=== PATIENT | female | born 1935 | race Caucasian/White ===

== ENCOUNTER → 2016-12-17 | Outpatient (CLI) | payer OTHER, MEDICAID ==
[~2016-12-17] MED LIST: ACETAMINOPHEN 325 MG TAB PO ONE
[2016-12-17 11:18] LABS: % IMMATURE GRANULOCYTES 0.3 % (0.0-1.1); ABSOLUTE IMMATURE GRANULOCYTES 0.02 10^3/uL (0-0.10); HEMATOCRIT 19.8 % (38.0-47.0); HEMOGLOBIN 6.3 g/dL (12.6-16.3); MEAN CELL HEMOGLOBIN 30.6 pg (27.9-34.1); MEAN CELL HEMOGLOBIN CONC. 31.8 g/dL (32.4-36.7); MEAN CELL VOLUME 96.1 fL (81.5-99.8); MEAN PLATELET VOLUME 10.8 fL (8.7-11.7); RED BLOOD CELL COUNT 2.06 10^6/uL (4.18-5.33); RED CELL DISTRIBUTION WIDTH 14.7 % (11.5-15.2)
== END ==
LOC: RMCCLAB 08:58 → MERGE 08:58 → FOBOP 08:58 → EDSTATUS 13:25
PROVIDERS: ATTEND Internal Medicine Hematology & Oncology
PROC: 30233N1 Transfusion of Nonautologous Red Blood Cells into Peripheral Vein, Percutaneous Approach (ICD-10-PCS; principal; 2016-12-17)
DX: D3A.098 Benign carcinoid tumors of other sites (principal)
CPT/HCPCS: 36430; J1200; P9016

== ENCOUNTER → 2016-12-21 | Outpatient (CLI) | payer OTHER, MEDICAID | LOC: EDSTATUS 11:00 → MERGE 13:47 → FOBOP 13:47 | PROVIDERS: ATTEND Internal Medicine Hematology & Oncology | PROC: 30233N1 Transfusion of Nonautologous Red Blood Cells into Peripheral Vein, Percutaneous Approach (ICD-10-PCS; principal; 2016-12-21) | DX: C7A.00 Malignant carcinoid tumor of unspecified site (principal); D50.9 Iron deficiency anemia, unspecified | CPT/HCPCS: 36430; P9016; P9021 ==

== ENCOUNTER 2017-04-10 21:49 | Emergency (ER) | payer OTHER, MEDICAID ==
[2017-04-10 22:20] VITALS: PULSE 65; RESP 20
--- NOTE | 2017-04-10 22:28 | CPEKG ---
Heart Rate: 60 RR Interval: 1000 P-R Interval: 168 QRSD Interval: 82 QT Interval: 408 QTC Interval: 408 P [place]th[place]: 85 QRS [place]: 50 T Wave [place]: 66 EKG Severity - NORMAL ECG - EKG Impression: SINUS RHYTHM Electronically Signed By: Darnell Leach 12-Apr-2017 12:09:24
--- NOTE | 2017-04-10 22:48 | EDPHY ---
H & P Stated Complaint: Hypertension Time Seen by Provider: 04/10/17 21:53 HPI/ROS: CHIEF COMPLAINT: Elevated blood pressure History by patient and her son HISTORY OF PRESENT ILLNESS: 81-year-old woman with a history of carcinoid tumor and hypertension who is on losartan was seen today and given a transfusion of 2 units of packed red blood cells because of anemia thought to be related to her carcinoid tumor. Patient is also on an oral chemotherapeutic agent and monthly octreotide infusions. After the transfusion her blood pressure was noted to be very high around 274 systolic and her son states that he was recommended to come to the ER. Patient herself has no complaints and specifically denies headache, focal numbness or weakness, chest pain, shortness of breath, visual difficulties or other problems. Patient denies dizziness as well. She has had ongoing diarrhea which she says has been better the past several days. There has been no flushing or fever. REVIEW OF SYSTEMS: As in HPI, and all other systems reviewed and are negative Source: Patient, Family - Personal History Current Tetanus/Diphtheria Vaccine: Yes Current Tetanus Diphtheria and Acellular Pertussis (TDAP): Yes Tetanus Vaccine Date: Son unsure of date - Medical/Surgical History Hx Asthma: No Hx Chronic Respiratory Disease: No Hx Diabetes: No Hx Cardiac Disease: No Hx Renal Disease: No Hx Cirrhosis: No Hx Alcoholism: No Hx HIV/AIDS: No Hx Splenectomy or Spleen Trauma: No Other PMH: gi bleed/carcinoid tumor, HTn, gastric bypass, appendix removed, Esophogeal ulcer - Social History Smoking Status: Never smoked - Physical Exam Exam: General Appearance: Alert, pale, chronically ill-appearing. Eyes: Pupils equal and round no pallor or injection. ENT, Mouth: Mucous membranes moist. Respiratory: Normal, effort, lungs are clear to auscultation. No wheezes, rales or rhonchi. Cardiovascular: Regular rate and rhythm. S1, S2, no murmurs, gallops or rubs appreciated Gastrointestinal: Abdomen is soft and nontender, no masses, bowel sounds normal. Back: No CVA tenderness, no bony tenderness Neurological: Awake, alert and oriented x 3, no pronator drift, normal gait, no pronator drift Skin: Warm and dry, no rashes. Musculoskeletal: No deformities or tenderness. Extremitie:s full range of motion, no edema Psychiatric: Patient has normal affect, there is no agitation. Constitutional: Initial Vital Signs Temperature (C) 36.4 C 04/10/17 22:11 Heart Rate 65 04/10/17 22:11 Respiratory Rate 20 04/10/17 22:11 Blood Pressure 194/87 H 04/10/17 22:11 O2 Sat (%) 97 04/10/17 22:11 O2 Delivery Mode Room Air Allergies/Adverse Reactions: cyanocobalamin (vitamin B12) [From Neuro-B12 Forte NR] Allergy (Verified 22:10) pyridoxine HCl [From Neuro-B12 Forte NR] Allergy (Verified 04/10/17 22:10) thiamine (vitamin B1) [From Neuro-B12 Forte NR] Allergy (Verified 04/10/17 22:10 ) b12 Allergy (Uncoded 09/15/16 08:44) Home Medications: Medication Instructions Recorded Loperamide HCl [Imodium 2 mg (*)] 2 mg PO DAILY PRN 02/19/14 Multivitamins [Multivitamin (*)] 1 each PO DAILY 02/19/14 Ascorbic Acid [Vitamin C 500 mg 1 tab PO DAILY 12/16/14 (*)] Diphenoxylate HCl/Atrop Sulf 1 tab PO QID 12/16/14 [Lomotil Tab (*)] Ferrous Sulfate [Ferrous Sulf 325 325 mg PO DAILY 12/16/14 MG (*)] Losartan Potassium [Cozaar 50 mg 50 mg PO DAILY 12/16/14 (*)] Amlodipine Besylate 06/10/16 Nitrofurantoin Monohyd/M-Cryst 100 mg PO BID #10 capsule 06/11/16 [Macrobid 100 mg Capsule] Metoprolol Tartrate [Lopressor 50 06/15/16 mg (*)] Aspirin [Aspirin 81mg (*)] 81 mg PO DAILY 09/15/16 Ferrous Sulfate [Ferrous Sulf 325 325 mg PO DAILY 09/15/16 MG (*)] Herbals/Supplements -Info Only 1 ea PO DAILY 09/15/16 Losartan Potassium [Cozaar 50 mg 50 mg PO DAILY@12 09/15/16 (*)] Multivitamins [Multivitamin (*)] 1 each PO DAILY 09/15/16 Cummings-3 Fatty Acids [Fish Oil 1000 1,000 mg PO DAILY 09/15/16 mg (*)] Acetaminophen [Tylenol 325mg (*)] 650 mg PO Q4HRS PRN #0 tab 09/17/16 Labetalol HCl [Trandate 100 mg (*)] 100 mg PO BID #60 tab 09/17/16 Medical Decision Making - Diagnostics EKG Interpretation: Normal sinus rhythm at a rate of 60 with normal axis, normal intervals and no ST segment abnormalities. Impression: Normal EKG. ED Course/Re-evaluation: 81-year-old woman with a history of carcinoid tumor presents with asymptomatic elevated blood pressure. There is no evidence of acute hypertensive emergency at this time or carcinoid syndrome. I did discuss the case with Dr. Barrett her oncologist felt that no further workup was needed beyond what would normally be done with the patient with elevated pressure. Patient is a primary care physician Dr. Carter who she sees as well as Dr. Barrett. I recommend she follow up with Dr. Carter regarding her blood pressure in the next 2 days. I discussed this with the patient's son who understands and is agreeable to this plan. We also discussed that if he is going to monitor her blood pressure at home he should do it a once a day in the morning. Departure - Departure Disposition: Home, Routine, Self-Care Clinical Impression: High blood pressure Qualifiers: Hypertension type: unspecified Qualified Code(s): I10 - Essential (primary) hypertension Condition: Fair Instructions: Hypertension (ED) Additional Instructions: You were seen by Dr. Yuki Mina today. Check in with her primary care physician Dr. Carter tomorrow to be seen within the next few days for blood pressure recheck. If he going to check blood pressure at home do it 1st thing in the morning. Continue her usual blood pressure medicines. Return for any worsening or new concerns. Referrals: Joe Barrett MD [Primary Care Provider] - As per Instructions
[2017-04-10 23:07] VITALS: BP 215/84; TEMP 98.1; O2SAT 95
== END 2017-04-10 23:08 | disposition home or self-care (01) ==
LOC: CED 21:49
DX: I10 Essential (primary) hypertension (principal); Z79.82 Long term (current) use of aspirin

== ENCOUNTER 2017-04-19 12:25 | Inpatient (IN) | payer OTHER, MEDICAID ==
--- NOTE | 2017-04-19 13:51 | PDGENHP ---
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 Her hand swelling was initially noticed 3 days ago. She was treated with 1 g IV Rocephin yesterday. Five days ago, she received 2 units of PRBC's due to a hgb of 7.5 due to suspected slow blood loss related to carcinoid tumor. Her son believes the IV was placed in her RUE and he does not recall a recent IV in her left hand. Her wbc's chronically run in the 2-3 range, but were elevated to 7 today. She denies fevers, chills, CP, or SOB. She has minimal pain, but pain is worse with flexion/extension of her fingers. She has not had e/o active GI bleeding since 10/2016. At that time, she was started on Afinotor and her condition has improved. She has also been having problems recently with hypertension. Her Losartan dose was increased, but the following morning, she fainted and was found to have SBP of 90. Since that time, her son is giving her just 1/2 the prescribed dose. She was also recently prescribed Amlodipine, but she has not been given this as he feels it causes her heart problems. In addition, she was prescribed Clonidine 0.1 mg, but he has also been holding this. She was evaluated in ID clinic and was sent to [facility] for direct admission for IV atbx and close management of her LUE cellulitis. History Information - Allergies/Home Medication List Allergies/Adverse Reactions: cyanocobalamin (vitamin B12) [From Neuro-B12 Forte NR] Allergy (Verified 22:10) pyridoxine HCl [From Neuro-B12 Forte NR] Allergy (Verified 04/10/17 22:10) thiamine (vitamin B1) [From Neuro-B12 Forte NR] Allergy (Verified 04/10/17 22:10 ) b12 Allergy (Uncoded 09/15/16 08:44) Home Medications: Ascorbic Acid [Vitamin C 500 mg (*)] 1 tab PO DAILY 12/16/14 [Last Taken ] Diphenoxylate HCl/Atrop Sulf [Lomotil Tab (*)] 1 tab PO QID PRN 12/16/14 [Last Taken Unknown] Multivitamins [Multivitamin (*)] 1 each PO DAILY 09/15/16 [Last Taken 04/18/17] Cholestyramine (with Sugar) [Cholestyramine Packet] 4 gm PO BID 04/19/17 [Last Taken 04/18/17] Everolimus [Afinitor] 7.5 mg PO DAILY 04/19/17 [Last Taken 04/18/17] Labetalol HCl [Trandate 100 mg (*)] 100 mg PO TID 04/19/17 [Last Taken 04/18/17 21:00] Losartan/Hydrochlorothiazide [Losartan-Hctz 100-25 Mg Tab] 1 each PO DAILY 04/19 [Last Taken 04/18/17] Ondansetron Odt [Zofran Odt 4 mg (*)] 8 mg PO DAILY PRN 04/19/17 [Last Taken Unknown] I have personally reviewed and updated: family history, medical history, social history, surgical history - Past Medical History hypertension (Challenging to control) Additional medical history: Carcinoid tumor. Esophageal ulcer. Acute blood loss anemia - s/p 2 units prbc's recently due to hgb 7.5 (now 12). 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 Tumor surgery x3 - Family History Additional family history: No recent sick family contacts - Social History Smoking Status: Never smoked Additional social history: Lives with her son, normally independent in ADLs Review of Systems Review of Systems: ROS: 10pt was reviewed & negative except for what was stated in HPI & below Physical Exam Physical Exam: Constitutional: no apparent distress Eyes: PERRL Ears, Nose, Mouth, Throat: moist mucous membranes Cardiovascular: regular rate and rhythym, no murmur, rub, or gallop Respiratory: no respiratory distress, clear to auscultation Gastrointestinal: normoactive bowel sounds, soft, non-tender abdomen Skin: warm Musculoskeletal: other (Left hand with marked fluctuant edema, tense and shiny, +warmth, 2+ radial pulse, decrease ROM due to pain / swelling) Neurologic: AAOx3 Psychiatric: interacting appropriately Assessment & Plan Assessment: Please note pt has 2 [employer] charts and labs / BCx's on day of admission are in the other chart. LUE cellulitis - focal in the hand, consider deeper tissue / tendon involvement. Discussed with ID. She has a relative leukocytosis (wbc 7, usually 2-3 on chronic immunosuppressant agent), but is afebrile and non-toxic appearing. She received 1 g IV Ceftriaxone yesterday. -Blood cultures drawn at ID clinic -Start IV Ancef 2 g q8h -Check LUE u/s to r/o DVT -If not improving by tomorrow, will get MRI Carcinoid - followed by Dr. Barrett at [facility]. On Afinitor, chemotherapeutic / immunosuppressant. Discussed case with Oncology, who is aware of admission and available to consult if needed. -hold Afinitor during active infection Recurrent GIB - suspected UGIB due to tumor invasion of small bowel. Required 2 units prbc's last week, hgb currently stable with no signs of active bleeding -follow h&h and hemodynamics -no transfusion indicated at this time Hypertension - suboptimal control, but labile per son's report -resume home Labetalol, Losartan, HCTZ -will add low dose amlodipine (Rx'd as outpt) if needed Hypokalemia - replace, follow JAMEL - Cr 1.1, gfr 48. Baseline Cr ~0.9 -gentle IVF's -avoid nephrotoxic agents DVT PPLX - SCD's, defer pharmacologic pplx due to recent down-trending hgb and h /o suspected slow UGIB blood loss requiring transfusion Full code Dispo - inpt, will likely require >48 hrs hospitalization for ongoing management of cellulitis and hypertension control
[2017-04-19] MEDS ORDERED: ACETAMINOPHEN 325 MG TAB PO PRN (13:57)
[2017-04-19] MEDS ORDERED: ONDANSETRON DISINTEGRATING 4 MG TAB PO PRN (13:57)
[2017-04-19] MEDS ORDERED: ONDANSETRON 4 MG/2 ML VIAL IVP PRN (13:57)
[2017-04-19] MEDS ORDERED: oxyCODONE IR 5 MG TAB PO PRN (13:57)
[2017-04-19] MEDS ORDERED: DIPHENOXYLATE/ATROPINE LOMOTIL 1 TAB PO PRN (14:01)
[2017-04-19] MEDS ORDERED: Everolimus [Afinitor] 7.5 MG PO SCH (14:15)
[2017-04-19] MEDS ORDERED: LOSARTAN/HCTZ 50/12.5 1 TAB PO SCH (14:15)
[2017-04-19] MEDS ORDERED: ceFAZolin 2 GM/DEXTROSE 100 ML IV SCH (14:30)
[2017-04-19] MEDS ORDERED: POTASSIUM CL 20 MEQ TAB PO ONE (14:36)
[2017-04-19] MEDS: LABETALOL HCL 100 MG TAB PO SCH ×2 (14:44→21:17)
[2017-04-19] MEDS: NS 1,000 ML IV SCH (14:44)
--- NOTE | 2017-04-19 14:55 | PDMN ---
Medical Necessity Medical necessity: Pt meets INPT criteria per MD. Est. LOS >2 MN for eval/tx of LUE cellulitis with relative leukocytosis, requiring IVAB, carcinoid on chemo/ immunosuppressant, recurrent GI bleed, htn, hypokalemia, JAMEL per H&P.
[2017-04-19] MEDS: ceFAZolin 2 GM in D5W 100 ML IV SCH ×2 (15:12→21:04)
--- NOTE | 2017-04-19 15:22 | ASMTCMCOM ---
CM Note CM Note Notes: Pt. is an 81-year-old togolese speaking woman who goes by "Justintab". Pt. admitted w/ LUE cellulitis. Hx. HTN, and carcinoid followed by Dr. Barrett at [facility]. Pt. 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 Pt. lives w/ her son, Alex in [place] who is an Greek speaker. PT and OT to evaluate. CM to follow for d/c POC. Current plan: TBD Date Signed: 04/19/2017 03:22 PM Electronically Signed By:Tila Patel LCSW
[2017-04-19] MEDS: CHOLESTYRAMINE/SUCROSE 4 GM PKT PO SCH (21:04)
[2017-04-20 05:18] LABS: % IMMATURE GRANULYOCYTES 0.4 % (0.0-1.1); ABSOLUTE IMMATURE GRANULOCYTES 0.02 10^3/uL (0.00-0.10); ADD DIFF? NO; ADD MORPH? NO; ADD SCAN? NO; ATYPICAL LYMPHOCYTE FLAG 0 (0-99); FRAGMENT RBC FLAG 0 (0-99); HEMATOCRIT 29.5 % (38.0-47.0); LEFT SHIFT FLG 0 (0-99); LIPEMIA HEMOLYSIS FLAG 90 (0-99); MEAN CELL HEMOGLOBIN 28.4 pg (27.9-34.1); MEAN CELL HEMOGLOBIN CONCENTR. 33.9 g/dL (32.4-36.7); MEAN CELL VOLUME 83.8 fL (81.5-99.8); MEAN PLATELET VOLUME 10.1 fL (8.7-11.7); PLATELET CLUMPS FLAG 0 (0-99); PLATELET COUNT 127 10^3/uL (150-400); RED BLOOD CELL COUNT 3.52 10^6/uL (4.18-5.33); RED CELL DISTRIBUTION WIDTH 14.2 % (11.5-15.2)
[2017-04-20] MEDS ORDERED: amLODIPine BESYLATE 5 MG TAB ONE (05:25)
[2017-04-20] MEDS: NS 1,000 ML IV SCH (05:28)
[2017-04-20] MEDS: ceFAZolin 2 GM in D5W 100 ML IV SCH ×3 (05:28→21:49)
[2017-04-20 05:33] LABS: ALANINE AMINOTRANSFERASE 30 IU/L (9-52); ALKALINE PHOSPHATASE 66 IU/L (38-126); ANION GAP 10 mEq/L (8-16); ASPARTATE AMINOTRANSFERASE 34 IU/L (14-46); BILIRUBIN,TOTAL 0.4 mg/dL (0.1-1.4); CALCIUM 7.7 mg/dL (8.5-10.4); CARBON DIOXIDE 24 mEq/l (22-31); CHLORIDE 106 mEq/L (97-110); CREATININE 0.9 mg/dL (0.6-1.0); GLOMERULAR FILTRATION RATE 60; GLUCOSE 108 mg/dL (70-100); POTASSIUM 3.2 mEq/L (3.5-5.2); SODIUM 140 mEq/L (134-144); TOTAL PROTEIN 5.6 g/dL (6.3-8.2)
[2017-04-20] MEDS: POTASSIUM CL 20 MEQ TAB PO SCH ×2 (08:25→21:50)
[2017-04-20] MEDS ORDERED: amLODIPine BESYLATE 5 MG TAB PO SCH ×2 (09:00→14:54)
[2017-04-20] MEDS ORDERED: LOSARTAN/HCTZ 50/12.5 1 TAB PO SCH (09:00)
[2017-04-20] MEDS: CHOLESTYRAMINE/SUCROSE 4 GM PKT PO SCH ×2 (10:49→21:32)
--- NOTE | 2017-04-20 14:51 | HOSPPROG ---
Hospitalist Progress Note Assessment/Plan: Please note pt has 2 [employer] charts and labs / BCx's on day of admission are in the other chart. HENRYRomulo cellulitis - Discussed with ID, who considers pseudogout given lack of erythema and systemic signs of toxicity -check xray of hand -Blood cultures drawn at ID clinic 04/19 pending -Cont IV Ancef 2 g q8h Carcinoid - followed by Dr. Barrett at [facility]. On Afinitor, chemotherapeutic / immunosuppressant. Discussed case with Oncology, who is aware of admission and available to consult if needed. -hold Afinitor during active infection H/P recurrent GIB - suspected UGIB due to tumor invasion of small bowel. Required 2 units prbc's last week, hgb currently stable with no signs of active bleeding -follow h&h and hemodynamics -no transfusion indicated at this time Hypertension - suboptimal control, but labile per son's report -cont losartan / hctz -increase amlodipine to 10 mg daily -prn hydralazine, labetalol while up-titrating meds Hypokalemia - cont to replace, follow -check mag JAMEL - Resolved with IVF's DVT PPLX - SCD's, defer pharmacologic pplx due to recent down-trending hgb and h /o suspected slow UGIB blood loss requiring transfusion Full code Dispo - cont inpt Subjective: Pt up in chair, resting comfortably. No significant pain, unless she uses her left hand, which is quite tender. No fevers. Eating well. Objective: Vital Signs Temp Pulse Resp BP Pulse Ox 37.1 C 77 18 191/87 H 94 04/20/17 11:12 04/20/17 11:12 04/20/17 11:12 04/20/17 11:12 04/20/17 11:12 Laboratory Results 04/20/17 04:40 04/20/17 04:40 04/19/17 04/20/17 04/21/17 05:59 05:59 05:59 Intake Total 1191 Balance 1191 - Physical Exam Constitutional: no apparent distress Eyes: PERRL Ears, Nose, Mouth, Throat: moist mucous membranes Cardiovascular: regular rate and rhythym Respiratory: no respiratory distress, clear to auscultation Gastrointestinal: normoactive bowel sounds, soft, non-tender abdomen Skin: warm Musculoskeletal: other (Left hand with persistent edema, curiously not much erythema, tender with motion) Neurologic: AAOx3 Psychiatric: interacting appropriately ICD10 Worksheet Patient Problems: Problems Problem Status Onset Anemia Acute Carcinoid tumor Acute Choledocholithiasis Acute Gastric outlet obstruction Acute Hypotension Acute Ileus following gastrointestinal surgery Acute
[2017-04-20] MEDS ORDERED: amLODIPine BESYLATE 5 MG TAB PO ONE (14:53)
--- NOTE | 2017-04-20 14:57 | PCMIDPN ---
Assessment/Plan: Assessment/Plan: * Left hand/wrist inflammatory process: Primary differential is cellulitis versus possibility of crystalline arthropathy such as pseudogout. Will obtain plain film of the hand and wrist to assess for chondrocalcinosis which might be seen with pseudogout. Will continue cefazolin in interim. Will hold off on MRI currently as suspect drainable focus unlikely. Clinical findings and plan discussed with patient, son, and Dr. Pedroza. 04/20/17 14:53 Subjective: Patient complains of persistent left hand/finger/forearm pain and swelling with decreased range of motion of digits. Son thinks range of motion slightly improved versus yesterday. Objective: Vital Signs Temp Pulse Resp BP Pulse Ox 37.1 C 77 18 191/87 H 94 04/20/17 11:12 04/20/17 11:12 04/20/17 11:12 04/20/17 11:12 04/20/17 11:12 Laboratory Results 04/20/17 04:40 04/20/17 04:40 04/19/17 04/20/17 04/21/17 05:59 05:59 05:59 Intake Total 1191 Balance 1191 Cefazolin # 1 Blood cultures x2 no growth (note these are in separate medical record entry) - Physical Exam General Appearance: alert, no apparent distress EENT: No scleral icterus Respiratory: lungs clear, No respiratory distress Cardiac/Chest: regular rate, rhythm Extremities: inflammation (Left hand, wrist, and forearm with swelling and minimal overlying erythema with warmth and tenderness; minimal range of motion of digits; no bulla; no palpable fluctuance; upper arm not affected) ICD10 Worksheet Patient Problems: Problems Problem Status Onset Anemia Acute Carcinoid tumor Acute Choledocholithiasis Acute Gastric outlet obstruction Acute Hypotension Acute Ileus following gastrointestinal surgery Acute
[2017-04-20] MEDS ORDERED: LABETALOL HCL 100 MG TAB PO PRN (15:03)
--- NOTE | 2017-04-20 16:59 | ASMTCMCOM ---
CM Note CM Note Notes: Spoke w/pt's son, Alex and Tommy with pt's permission re; dc poc. PT recommending 24hr care, pt lives at home w/son but he has concerns whenever he has to leave the house. CM and son discussed at length home care and private pay care. Finances are an issue, but he is willing to call on resources given by CM. Also discussed enrolling her in the PACE program, pt may qualify. Has had [facility] in the past. POC: homecare with [facility] RN/PT/OT/[facility] and possible private pay care, as well as Meals on Wheels. Date Signed: 04/20/2017 04:59 PM Electronically Signed By:Isabela Dale RN
[2017-04-20] MEDS: hydrALAZINE 10 MG TAB PO PRN (18:22)
[2017-04-21] MEDS: hydrALAZINE 10 MG TAB PO PRN ×2 (00:32→06:10)
[2017-04-21 05:26] LABS: ANION GAP 7 mEq/L (8-16); CALCIUM 8.3 mg/dL (8.5-10.4); CARBON DIOXIDE 26 mEq/l (22-31); CHLORIDE 107 mEq/L (97-110); CREATININE 0.9 mg/dL (0.6-1.0); GLOMERULAR FILTRATION RATE 60; GLUCOSE 100 mg/dL (70-100); POTASSIUM 3.6 mEq/L (3.5-5.2); SODIUM 140 mEq/L (134-144)
[2017-04-21] MEDS: ceFAZolin 2 GM in D5W 100 ML IV SCH ×3 (06:10→21:38)
[2017-04-21] MEDS: amLODIPine BESYLATE 5 MG TAB PO SCH ×2 (08:02→13:10)
[2017-04-21] MEDS ORDERED: LOSARTAN/HCTZ 50/12.5 1 TAB PO SCH ×2 (09:00)
[2017-04-21] MEDS: CHOLESTYRAMINE/SUCROSE 4 GM PKT PO SCH ×2 (10:50→21:14)
--- NOTE | 2017-04-21 10:52 | HOSPPROG ---
Hospitalist Progress Note Assessment/Plan: Please note pt has 2 [employer] charts and labs / BCx's on day of admission are in the other chart. LUE cellulitis - Improvement noted. Xray without chrondrocalcinosis. Discussed with ID, still some consideration for pseudogout. Not a great candidate for steroids or nsaids given GIB hx. -BCx's ngtd -Cont IV Ancef 2 g q8h -rheum consult in am, consider aspiration Syncope - STAT team this am on 1N. Pt walked a far distance after receiving increased doses of BP meds. SBP 182 --> 122. Suspect this is hemodynamic mediated. However, son reports recurrent syncope and thus further w/u warranted -reduced BP med doses, may need to tolerate some hypertension -check echo -check carotid u/s Hypertension - suboptimal control, but quite labile. Had increased amlodipine and losartan doses due to persistent SBP's >180, but pt syncope'd with SBP of 122. -return to outpt dose of amlodipine and losartan/hctz -prn labetalol for sbp >180 -as above, due to hemodynamic sensitivity, will tolerate sbp up to 180 Carcinoid - followed by Dr. Barrett at [facility]. On Afinitor, chemotherapeutic / immunosuppressant. Discussed case with Oncology, who is aware of admission and available to consult if needed. -hold Afinitor during active infection H/P recurrent GIB - suspected UGIB due to tumor invasion of small bowel. Required 2 units prbc's last week, hgb currently stable with no signs of active bleeding -follow h&h and hemodynamics -no transfusion indicated at this time Hypokalemia - cont to replace, follow -check mag JAMEL - Resolved with IVF's DVT PPLX - SCD's, defer pharmacologic pplx due to recent down-trending hgb and h /o suspected slow UGIB blood loss requiring transfusion Full code Dispo - cont inpt Subjective: Pt passed out on walk to 1N. Her blood pressure dropped from 180 systolic to 122. She has h/o syncope, 8 times this year per her son. No CP, SOB. She did feel lightheaded before the event, denied any heart palpitations. No fevers. Hand a little better, decreased swelling. Objective: Vital Signs Temp Pulse Resp BP Pulse Ox 37.3 C 77 20 182/92 H 95 04/21/17 07:56 04/21/17 07:56 04/21/17 07:56 04/21/17 07:56 04/21/17 07:56 Laboratory Results 04/20/17 04:40 04/21/17 04:43 04/20/17 04/21/17 04/22/17 05:59 05:59 05:59 Intake Total 1191 1320 120 Balance 1191 1320 120 - Physical Exam Constitutional: no apparent distress Eyes: PERRL Ears, Nose, Mouth, Throat: moist mucous membranes Cardiovascular: regular rate and rhythym Respiratory: no respiratory distress, clear to auscultation Gastrointestinal: normoactive bowel sounds, soft, non-tender abdomen Skin: warm Musculoskeletal: full muscle strength, other (left hand with decreased edema, but still some pitting edema, no erythema or warmth, still worker helper with motion) Neurologic: AAOx3 Psychiatric: interacting appropriately ICD10 Worksheet Patient Problems: Problems Problem Status Onset Anemia Acute Carcinoid tumor Acute Choledocholithiasis Acute Gastric outlet obstruction Acute Hypotension Acute Ileus following gastrointestinal surgery Acute
--- NOTE | 2017-04-21 13:57 | ECHO ---
[email or web address] [address] Main: [phone] Fax: Transthoracic Echocardiogram Name: CHARISSE QUINONES MR#: [id number] Study Date: 04/21/2017 Study Time: 12:33 PM Date of : 1935 Age: 81 year(s) Height: 157.5 cm (62 in.) Weight: 46.31 kg (102.1 lb.) BSA: 1.44 m2 Gender: Female Examination: Echo Indication: Recurrent syncope Image Quality: Contrast: Requested by: Barbara Pedroza BP: 131 mmHg/61 mmHg Heart Rate: Rhythm: Indication: Recurrent syncope Procedure Staff Piping Designer: Siri Kemp Physician: Obey Parson Requesting Provider: Conclusions: Normal size left ventricle. Mild concentric LV hypertrophy. EF is 74 %. Grade 1 diastolic dysfunction (abnormal relaxation). Trivial to mild mitral regurgitation. Aortic sclerosis is present. Mild aortic valve regurgitation is present. The tricuspid valve is normal in appearance and function. Measurements: Chambers Valvular Assessment AV/MV Valvular Assessment TV/PV Normal Normal Normal Name Value Range Name Value Range Name Value Range Ao Manda (MM): 3.2 cm (2.2 cm-3.7 AV meanP mmHg ( - ) cm) AR (PHT): 745 ms ( - ) LVDd (2D): 4.1 cm (3.9 cm-5.3 MV E Vmax: 0.59 m/s ( - ) cm) MV A Vmax: 0.90 m/s ( - ) LVEF (MOD4): 74 % (>=55 %) MV E/A: 0.66 ( - ) Continued Measurements: Chambers Valvular Assessment AV/MV Name Value Name Value LADs Lon.6 cm MV E/E' Septal: 13.70 LA Area: 14.8 cm2 AR Vmax: 3.98 cm/s Findings: Left Ventricle: Patient: CHARISSE QUINONES Study Date: 04/21/2017 Page 1 of 2 12:33 PM Normal size left ventricle. Mild concentric LV hypertrophy. Normal global systolic LV function. EF is 74 %. No regional wall motion abnormality. Grade 1 diastolic dysfunction (abnormal relaxation). Right Ventricle: Normal size right ventricle. Left Atrium: The left atrium is normal in size. Right Atrium: The right atrium is normal in size. Mitral Valve: The mitral valve is normal in appearance and function. Mild mitral annular calcification. Trivial to mild mitral regurgitation. Aortic Valve: The aortic valve is normal in appearance and function. Aortic sclerosis is present. Mild aortic valve regurgitation is present. Tricuspid Valve: The tricuspid valve is normal in appearance and function. Pulmonic Valve: Pulmonary valve not well visualized. Aorta: The aorta is normal. Pericardium: No pericardial effusion. (No Signature Object) Patient: CHARISSE QUINONES Study Date: 04/21/2017 Page 2 of 2 12:33 PM [id number]
--- NOTE | 2017-04-21 16:54 | PCMIDPN ---
Assessment/Plan: Assessment/Plan: * Left hand/wrist inflammatory process: Clinically improved with cefazolin although still with residual inflammatory findings. X-rays did not show evidence of chondrocalcinosis although pseudogout remains consideration. Given recent GI bleeding, difficult to use either NSAIDs or corticosteroids. Will review with Rheumatology in a.m. regarding possibility of wrist aspiration with steroid injection. Continue cefazolin in interim although not totally clear primary stacker driver is cellulitis. 04/21/17 16:51 04/21/17 16:54 Subjective: Patient with less hand pain and improved range of motion. Objective: Vital Signs Temp Pulse Resp BP Pulse Ox 37.6 C 87 18 164/74 H 95 04/21/17 16:00 04/21/17 16:00 04/21/17 16:00 04/21/17 16:00 04/21/17 16:00 Laboratory Results 04/20/17 04:40 04/21/17 04:43 04/20/17 04/21/17 04/22/17 05:59 05:59 05:59 Intake Total 1191 1320 120 Balance 1191 1320 120 Cefazolin # 2 Blood cultures x2 no growth X-ray without evidence of chondrocalcinosis - Physical Exam General Appearance: alert, no apparent distress EENT: No scleral icterus, No thrush Extremities: inflammation (Edema of the left hand/digits/forearm overall decreased with some faint residual erythema and warmth; improved range of motion of wrist and digits, no fluctuance) Abdomen: non-tender, No distended Lymphatic: other (No left upper extremity lymphangitis) ICD10 Worksheet Patient Problems: Problems Problem Status Onset Anemia Acute Carcinoid tumor Acute Choledocholithiasis Acute Gastric outlet obstruction Acute Hypotension Acute Ileus following gastrointestinal surgery Acute
[2017-04-22] MEDS: ceFAZolin 2 GM in D5W 100 ML IV SCH (06:14)
[2017-04-22 08:08] VITALS: RESP 20
[2017-04-22 08:19] LABS: HEMATOCRIT 33.7 % (38.0-47.0); HEMOGLOBIN 11.7 g/dL (12.6-16.3); MEAN CELL HEMOGLOBIN 28.7 pg (27.9-34.1); MEAN CELL HEMOGLOBIN CONCENTR. 34.7 g/dL (32.4-36.7); MEAN CELL VOLUME 82.8 fL (81.5-99.8); RED BLOOD CELL COUNT 4.07 10^6/uL (4.18-5.33); RED CELL DISTRIBUTION WIDTH 14.3 % (11.5-15.2)
[2017-04-22] MEDS ORDERED: LOSARTAN/HCTZ 50/12.5 1 TAB PO SCH (09:00)
[2017-04-22] MEDS: amLODIPine BESYLATE 5 MG TAB PO SCH ×2 (09:18→09:28)
[2017-04-22] MEDS: CHOLESTYRAMINE/SUCROSE 4 GM PKT PO SCH (09:19)
[2017-04-22 11:34] VITALS: BP 190/80; PULSE 71; TEMP 98.2; O2SAT 96
--- NOTE | 2017-04-22 12:38 | ASMTCMCOM ---
CM Note CM Note Notes: CM met w/ pt and son for dispo planning. Son is agreeable to having [facility] for HC services. Pt is being discharged today. CM notified [facility] of pts discharge. CM notified MANUELITO Armas w/ phone number to give report to [facility]. CM available for changes. Date Signed: 04/22/2017 12:37 PM Electronically Signed By:NORA Stanford
--- NOTE | 2017-04-22 15:13 | ASDISCHSUM ---
Discharge Information Plan Status:Home with Home Health Medically Cleared to Leave:04/22/2017 Discharge Date:04/22/2017 01:41 PM CM D/C Disposition: ADT D/C Disposition:Home, Routine, Self-Care Projected Discharge Date:04/22/2017 11:00 AM Transportation at D/C: Discharge Delay Reason: Follow-Up Date:04/22/2017 11:00 AM Discharge Slot: Final Diagnosis: Placement Information Referral Type:*Home Health Care Services Referral ID:[id number] Provider Name:[facility] Address 1:[address] [place] [address] Address 2: City:[place] Selection Factors: State:[place] Patient Contact Information Contact Name:MARILIN Relationship:Son Address:[address] Work Phone: City:[place] Phone: State/Zip Code:[place] [address] Email: Financial Information Financial Class: Primary Plan Desc:MEDICARE IP PART B ONLY Primary Plan Number:[id number] Secondary Plan Desc:MEDICA[place] Secondary Plan Number:[id number] Assessment Information [facility] CM Progress Note CM Note CM Note Notes: Pt. is an 81-year-old mauritian speaking woman who goes by "Huy". Pt. admitted w/ LUE cellulitis. Hx. HTN, and carcinoid followed by Dr. Barrett at [facility]. Pt. 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 Pt. lives w/ her son, Alex in [place] who is an German speaker. PT and OT to evaluate. CM to follow for d/c POC. Current plan: TBD Date Signed: 04/19/2017 03:22 PM Electronically Signed By:Tila Patel LCSW [facility] CM Progress Note CM Note CM Note Notes: Spoke w/pt's son, Alex and Tommy with pt's permission re; dc poc. PT recommending 24hr care, pt lives at home w/son but he has concerns whenever he has to leave the house. CM and son discussed at length home care and private pay care. Finances are an issue, but he is willing to call on resources given by CM. Also discussed enrolling her in the PACE program, pt may qualify. Has had [facility] in the past. POC: homecare with [facility] RN/PT/OT/COMPUTER REPAIR INSTRUCTOR and possible private pay care, as well as Meals on Wheels. Date Signed: 04/20/2017 04:59 PM Electronically Signed By:Isabela Dale RN [facility] Progress Note CM Note CM Note Notes: CM met w/ pt and son for dispo planning. Son is agreeable to having [facility] for HC services. Pt is being discharged today. notified [facility] of pts discharge. notified MANUELITO Armas w/ phone number to give report to [facility]. available for changes. Date Signed: 04/22/2017 12:37 PM Electronically Signed By:NORA Stanford Intervention Information Intervention Type:*IM-Signed Date of Service:04/22/2017 01:57 PM Patient Type:Inpatient Staff Member:Ester Benton Hours: Discipline: Severity: Comment:
--- NOTE | 2017-04-23 05:18 | GDS ---
[f rep st] DISCHARGE SUMMARY DISCHARGE DIAGNOSES: 1. Left hand cellulitis versus pseudogout. 2. Syncope, secondary to orthostasis after up-titration of her blood pressure medications. 3. Hypertension. 4. Carcinoid, followed by Dr. Barrett. 5. History of recurrent gastrointestinal bleed, stable, without evidence of active bleeding. 6. Hypokalemia, resolved. 7. Acute kidney injury, resolved. CONSULTANTS: Dr. Jose Suarez, Infectious Disease. HISTORY: For details please see the history and physical dated April 19, 2019. In brief, the delfino ent is an 81-year-old female with history of recurrent GI bleeding in the setting of carcinoid tumor, followed by Dr. Barrett at [facility], who presented to the hospital for direct admi ssion from [facility] with left hand swelling, concerning for cellulitis. HOSPITAL COURSE: The patient admitted to the medical-surgical unit. Blood cultures were drawn. She was noted to have a relative leukocytosis with a white blood cell count of 7. She chronically runs between 2-3 on chronic immunosuppressive agents for her carcinoid tumor. She was afebrile and nontox ic appearing, and had no evidence of sepsis. She was started on IV Ancef. Left upper extremity was negative for DVT. She had significant clinical improvement on antibiotics. Infectious disease consu lt was obtained and some consideration was given to possible pseudogout rather than cellulitis. She is not a great candidate for steroids or anti-inflammatory treatment given her GI bleeding in the set ting of carcinoid tumor invading her small bowel. Given her significant clinical improvement on disc harge, she is discharged home on oral Keflex with plans to follow up with Dr. Dudley Dye, Rheumat ology, in his clinic in the next 1-2 days for consideration of aspiration to rule out pseudogout. Also worth noting during this hospitalization, she had a syncopal event. Her son reports recurrent s yncopal events, and these tend to occur after extra blood pressure medications are administered in ef forts to improve her hypertension. During the hospitalization, she frequently had blood pressures in the 190 and even over 200 systolic range. She was continued on her home losartan/hydrochlorothiazid e and amlodipine. She required an additional dose of amlodipine on hospital day 1 for systolic blood pressure of over 200. The following day, her systolic blood pressure remained quite elevated, and h er losartan was increased. Shortly thereafter, she walked to the other side of the hospital where nadja negron had a syncopal event on . It was noted her systolic blood pressure dropped from 188 to 122. She felt lightheaded prior to her syncope. Given her recurrent syncopal episodes, echocardiogram and carotid artery ultrasound performed, showed no significant valve disease, and there was no flow-limiting stenosis in her carotid artery. I susp ect her syncope is related to hemodynamics, given rapid reduction in her blood pressure. Therefore, I believe we need to allow her blood pressure to run a little bit high and would only intervene for s ystolic blood pressure greater than 180. She is discharged on her outpatient dose of amlodipine, los cheyanne, hydrochlorothiazide, and I recommended she take an additional dose of amlodipine for a systoli c blood pressure greater than 180. DISPOSITION: Patient is discharged home in stable condition. FOLLOWUP: 1. Dr. Dudley Dye, Rheumatology in 1-2 days. I discussed the case with Dr. Dye, and his off ice will contact the patient to schedule an appointment. 2. Dr. Joe Barrett, Oncology. 3. Primary care. DISCHARGE MEDICATIONS: Please see [facility] for complete updated outpatient medication list. New medications on discharge include a new prescription for losartan/hydrochlorothiazide 50/12.5 one tablet p.o. daily, #30, no refills; cephalexin 500 mg p.o. q.i.d., #28, no refills. Clonidine is discontinued as I am concerned this may contribute to a rapid drop in blood pressure, wh ich we would like to avoid given her syncope. She will continue all other outpatient medications as prescribed. Note, her Afinitor was held during the hospitalization due to concern for infection, but this was res umed at discharge. /[id number]/MODL
== END 2017-04-22 13:41 | disposition home or self-care (01) | DRG 603 ==
LOC: F3E 12:54
PROVIDERS: ADMIT Hospitalist; ATTEND Hospitalist
DX: L03.114 Cellulitis of left upper limb (principal); M10.9 Gout, unspecified; R55 Syncope and collapse; I10 Essential (primary) hypertension; C7A.00 Malignant carcinoid tumor of unspecified site; Z98.84 Bariatric surgery status; E87.6 Hypokalemia; N17.9 Acute kidney failure, unspecified
CPT/HCPCS: 97161-GP; 97165-GO; G0463-PO; G8978-GP-CI; G8979-GP-CI; G8987-GO-CJ; G8988-GO-CI; J0690

== ENCOUNTER 2017-10-23 12:50 | Outpatient (CLI) | payer OTHER, MEDICAID ==
[2017-10-23] MEDS ORDERED: ACETAMINOPHEN 325 MG TAB ONE (13:09)
[2017-10-23] MEDS ORDERED: diphenhydrAMINE 25 MG CAP PO ONE ×2 (13:09→13:15)
[2017-10-23] MEDS ORDERED: ACETAMINOPHEN 325 MG TAB PO ONE (13:15)
[2017-10-23] MEDS ORDERED: FUROSEMIDE 20 MG/2 ML VIAL IVP ONE (13:15)
[2017-10-23] MEDS ORDERED: LIDOCAINE 1% 2 ML INJ ONE (13:43)
[2017-10-23 15:40] VITALS: BP 199/86
== END 2017-10-23 18:00 | disposition home or self-care (01) ==
LOC: FOBOP 12:50
PROVIDERS: ATTEND Internal Medicine Hematology & Oncology
PROC: 30233N1 Transfusion of Nonautologous Red Blood Cells into Peripheral Vein, Percutaneous Approach (ICD-10-PCS; principal; 2017-10-23)
DX: C7A.00 Malignant carcinoid tumor of unspecified site (principal)
CPT/HCPCS: 36430; J1940; P9016

== ENCOUNTER → 2017-11-01 | Outpatient (CLI) | payer OTHER, MEDICAID | LOC: BHFA 15:15 | PROVIDERS: ATTEND Internal Medicine Cardiovascular Disease | DX: R06.02 Shortness of breath (principal); R60.9 Edema, unspecified; D3A.00 Benign carcinoid tumor of unspecified site; I10 Essential (primary) hypertension ==

== ENCOUNTER → 2017-11-15 | Outpatient (CLI) | payer OTHER, MEDICAID | LOC: BHFA 14:45 | PROVIDERS: ATTEND Internal Medicine Cardiovascular Disease | DX: R60.9 Edema, unspecified (principal); R06.02 Shortness of breath; I10 Essential (primary) hypertension ==

== ENCOUNTER 2017-12-18 11:17 | Outpatient (CLI) | payer OTHER, MEDICAID ==
[2017-12-18] MEDS ORDERED: diphenhydrAMINE 25 MG CAP PO ONE (12:15)
[2017-12-18] MEDS ORDERED: ACETAMINOPHEN 325 MG TAB PO ONE (12:15)
[2017-12-18] MEDS ORDERED: FUROSEMIDE 20 MG/2 ML VIAL IVP ONE (12:15)
== END 2017-12-18 18:57 | disposition home or self-care (01) ==
LOC: FOBOP 11:17
PROVIDERS: ATTEND Internal Medicine Hematology & Oncology
PROC: 30233N1 Transfusion of Nonautologous Red Blood Cells into Peripheral Vein, Percutaneous Approach (ICD-10-PCS; principal; 2017-12-18)
DX: D3A.00 Benign carcinoid tumor of unspecified site (principal)
CPT/HCPCS: 36430; J1940; P9016

== ENCOUNTER → 2017-12-24 | Outpatient (CLI) | payer OTHER, MEDICAID | LOC: FIMAGING 16:21 | PROVIDERS: ATTEND Internal Medicine Hematology & Oncology | DX: R22.43 Localized swelling, mass and lump, lower limb, bilateral (principal) ==

== ENCOUNTER 2018-02-12 12:47 | Outpatient (CLI) | payer OTHER, MEDICAID | END 2018-02-12 16:30 | disposition home or self-care (01) | LOC: FOBOP 12:47 | PROVIDERS: ATTEND Internal Medicine Hematology & Oncology | PROC: 30233N1 Transfusion of Nonautologous Red Blood Cells into Peripheral Vein, Percutaneous Approach (ICD-10-PCS; principal; 2018-02-12) | DX: D50.9 Iron deficiency anemia, unspecified (principal) | CPT/HCPCS: 36430; P9016 ==

== ENCOUNTER 2018-04-09 13:41 | Outpatient (CLI) | payer OTHER, MEDICAID | END 2018-04-09 18:10 | disposition home or self-care (01) | LOC: FOBOP 13:41 | PROVIDERS: ATTEND Internal Medicine Hematology & Oncology | PROC: 30233N1 Transfusion of Nonautologous Red Blood Cells into Peripheral Vein, Percutaneous Approach (ICD-10-PCS; principal; 2018-04-09) | DX: C7A.00 Malignant carcinoid tumor of unspecified site (principal); D50.9 Iron deficiency anemia, unspecified; R53.83 Other fatigue; E86.0 Dehydration; K55.20 Angiodysplasia of colon without hemorrhage; L03.90 Cellulitis, unspecified; R60.9 Edema, unspecified | CPT/HCPCS: 36430; P9016; P9040 ==

== ENCOUNTER → 2018-05-06 | Outpatient (CLI) | payer OTHER, MEDICAID | LOC: FIMAGING 08:19 | PROVIDERS: ATTEND Internal Medicine Nephrology | DX: N20.0 Calculus of kidney (principal); R39.198 Other difficulties with micturition | CPT/HCPCS: 82397-90; 84260-90 ==

== ENCOUNTER 2018-07-15 12:20 | Inpatient (IN) | payer OTHER, MEDICAID ==
--- NOTE | 2018-07-15 13:09 | EDPHY ---
H & P Time Seen by Provider: 07/15/18 13:07 HPI/ROS: CHIEF COMPLAINT: Blood in stool, low hematocrit HISTORY OF PRESENT ILLNESS: History assisted by the oldest son who was with the patient. She has a history of carcinoid tumor and previous GI bleeding with last transfusion in April of 2018. She has had bleeding for at least a week and worse over the last day and has labs from 05/23 this morning showing a hemoglobin of 4.5 and hematocrit of 14. However the patient denies active bleeding in the ER, denies chest pain or shortness of breath, no dizziness or lightheadedness or syncope today. Really no other symptoms. REVIEW OF SYSTEMS: Eye: no change in vision ENT: no sore throat Cardiac: no chest pain or syncope Pulmonary: no cough or SOB Abdomen: HPI no vomiting Musculoskeletal: no back pain Skin: no rash Neuro: no headache Constitutional: no fever : no urinary symptoms, had elevated creatinine after previous medical treatment for her carcinoid, most recent creatinine is 2. A comprehensive 10 point review of systems is otherwise negative aside from elements mentioned in the history of present illness. PAST MEDICAL HISTORY: Includes carcinoid tumor, hypertension, gastric bypass, appendectomy. Social history: Here with her oldest son General Appearance: Alert and conversant, cooperative. Eyes: Pale conjunctivae. ENT, Mouth: Normal mucous membranes. Respiratory: Normal respiratory effort, breath sounds equal, lungs are clear to auscultation. Cardiovascular: Regular rate and rhythm. Gastrointestinal: Abdomen is soft and non tender. Neurological: Alert, face symmetric, normal motor and sensory in extremities. Skin: Warm and dry, no rashes. Musculoskeletal: Trace bilateral peripheral edema Psychiatric: Not agitated. Emergency Department course/MDM: Admission for transfusion. Consultation with [facility] and hospitalist. Labs confirmed as severe anemia. Creatinine from 11:30 a.m. Today is 2.0. 2 units packed red blood cells ordered, [facility] consultation, I think it is unlikely that she has primary hemolysis, upper GI bleed, aortoenteric fistula. Smoking Status: Never smoked Constitutional: Initial Vital Signs Temperature (C) 36.4 C 07/15/18 12:29 Heart Rate 75 07/15/18 12:29 Respiratory Rate 16 07/15/18 12:29 Blood Pressure 164/51 H 07/15/18 12:29 O2 Sat (%) 98 07/15/18 12:29 O2 Delivery Mode Room Air Allergies/Adverse Reactions: cyanocobalamin (vitamin B12) Allergy (Unknown, Verified 07/15/18 12:26) thiamine (vitamin B1) Allergy (Unknown, Verified 07/15/18 12:26) labetalol Allergy (Verified 07/15/18 12:26) Other-Enter Comments Home Medications: Medication Instructions Recorded Multivitamins [Multivitamin (*)] 1 each PO DAILY 09/15/16 Allopurinol [Allopurinol 300 MG 150 mg PO DAILY 12/18/17 (RX)] Cholecalciferol Vit D3 [Vitamin D3 1,000 units PO DAILY 07/15/18 (*)] Ferrous Sulfate [Ferrous Sulf 325 325 mg PO DAILY 07/15/18 MG (*)] Furosemide [Lasix 20 MG (*)] 20 mg PO DAILY 07/15/18 Hydralazine HCl 50 mg PO TID 07/15/18 Metoprolol Succinate Xr [Toprol Xl 50 mg PO DAILY 07/15/18 50 mg (*)] Sodium Bicarbonate [Na Bicarb 650 650 mg PO TID 07/15/18 MG (RX)] Tamsulosin HCl [Flomax 0.4 MG (*)] 0.4 mg PO DAILY 07/15/18 amLODIPine BESYLATE [Norvasc 5 mg 5 mg PO HS 07/15/18 (*)] Medical Decision Making Consult/Admit Bed Type: Dr. Barrett 1332, [facility] for Dr. Shay 1335 - Data Points Laboratory Results: Laboratory Results 07/15/18 13:17 07/15/18 07/15/18 07/15/18 13:17 13:17 13:17 WBC 5.75 10^3/uL 10^3/uL (3.80-9.50) RBC 1.42 10^6/uL L 10^6/uL (4.18-5.33) Hgb 4.5 g/dL L* g/dL (12.6-16.3) Hct 13.9 % L* % (38.0-47.0) MCV 97.9 fL fL (81.5-99.8) MCH 31.7 pg pg (27.9-34.1) MCHC 32.4 g/dL g/dL (32.4-36.7) RDW 17.5 % H % (11.5-15.2) Plt Count 124 10^3/uL L 10^3/uL (150-400) MPV 11.3 fL fL (8.7-11.7) Neut % (Auto) 74.6 % H % (39.3-74.2) Lymph % (Auto) 18.1 % % (15.0-45.0) Jefferson % (Auto) 6.3 % % (4.5-13.0) Eos % (Auto) 0.3 % L % (0.6-7.6) Baso % (Auto) 0.2 % L % (0.3-1.7) Nucleat RBC Rel Count 0.0 % % (0.0-0.2) Absolute Neuts (auto) 4.29 10^3/uL 10^3/uL (1.70-6.50) Absolute Lymphs (auto) 1.04 10^3/uL 10^3/uL (1.00-3.00) Absolute Monos (auto) 0.36 10^3/uL 10^3/uL (0.30-0.80) Absolute Eos (auto) 0.02 10^3/uL L 10^3/uL (0.03-0.40) Absolute Basos (auto) 0.01 10^3/uL L 10^3/uL (0.02-0.10) Absolute Nucleated RBC 0.00 10^3/uL 10^3/uL (0-0.01) Immature Gran % 0.5 % % (0.0-1.1) Immature Gran # 0.03 10^3/uL 10^3/uL (0.00-0.10) Platelet Estimate DECREASED L (ADEQ) Microcytic Cells 1+ H Smear Review By Pending Absolute Retic 0.020 10^6/uL L 10^6/uL (0.050-0.117) Percent Retic 1.75 % % (0.98-2.67) Haptoglobin Pending Patient ABO/Rh A POSITIVE Antibody Screen NEGATIVE Crossmatch IS Only See Detail Departure - Departure Disposition: [facility] In[facility] Acute Clinical Impression: Carcinoid tumor, Anemia Condition: Fair
[2018-07-15 14:02] LABS: PLATELET COUNT 124 10^3/uL (150-400)
--- NOTE | 2018-07-15 14:18 | GCON ---
INPATIENT ONCOLOGY CONSULTATION OUTPATIENT ONCOLOGIST: Dr. Joe Barrett REASON FOR CONSULTATION: History of carcinoid tumor and severe anemia. HISTORY OF PRESENT ILLNESS: The patient is an 83-year-old woman with a longstanding history of metas tatic carcinoid tumor. She was initially diagnosed with disease in the ileum in 2004. 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 She has been on everolimus until a few months ago and it was held. She continues to receiv e Sandostatin injections monthly. Her most recent imaging study was from mid March, which showed o verall stable mesenteric metastases. There was an area of thickening in the rectum. Dr. Barrett had r ecommended endoscopy to evaluate as the patient did have intermittent rectal bleeding that she and he r son declined. Last night , I received a call from the patient's son stating that his mother appeared tired and that she had some blood in her urine. He said that she was not having any rectal bleeding. I advised th em to come to the clinic this morning for evaluation. Her vital signs were stable, but she was unexp ectedly found to have a hemoglobin of 4.5. Hemoglobin was 10.9 on July 01. Her platelet count w as also slightly low at 124. She was sent to the emergency department for further evaluation. She reports feeling about the same. Denies fatigue or shortness of breath. She states she is not batres ving any abdominal pain. She did not feel that she was having significantly increased amounts of rec souleymane bleeding. PAST MEDICAL HISTORY: 1. Hypertension. 2. Chronic renal insufficiency. CURRENT MEDICATIONS: Include hydralazine 10 mg p.o. t.i.d., losartan 50 mg p.o. daily, metoprolol 25 mg p.o. daily, tamsulosin 0.4 mg daily, allopurinol 300 mg daily, amlodipine 5 mg daily. ALLERGIES: She has no known drug allergies. FAMILY HISTORY: Noncontributory. SOCIAL HISTORY: She does not smoke cigarettes or drink alcohol. She lives with her son. REVIEW OF SYSTEMS: Aside from pertinent positives in the HPI, a 14-point review of systems was negat vandana. EXAMINATION: VITAL SIGNS: Temperature was 36.4, blood pressure 164/51, heart rate 75, oxygen satura tion 98% on room air. GENERAL: She was a pale, thin appearing woman in no acute distress. HEENT: Sclerae anicteric. Oropharynx is clear. NECK: Supple without lymphadenopathy. LUNGS: Clear to au scultation bilaterally. CARDIAC: Regular rate and rhythm. No murmurs, gallops, or rubs. ABDOMEN: Normoactive bowel sounds. Mildly distended. Nontender. EXTREMITIES: Without edema. SKIN: No pe techiae, purpura. LABORATORY DATA: White count 5.4, hemoglobin 4.5, platelets of 124. Sodium 136, potassium 4.5, chlo ride 103, bicarb 23, BUN of 41, creatinine 2.0. Liver function tests were within normal limits, incl uding a normal total bilirubin. IMPRESSION: This is an 83-year-old woman with a history of some rectal bleeding and also metastatic carcinoid tumor. She now presents with a profound drop in her hemoglobin over the course of about 2 weeks. This is likely due to gastrointestinal blood losses and the most suspicious area is the abnor sean thickened area in the sigmoid colon and rectum seen on the most recent CT scan. However, given the degree of anemia, it is surprising that she does not give a strong history of significant gastro intestinal losses. Other potential problems, include hemolysis, though there is no particular reason for her to have autoimmune hemolysis on the basis of her malignancy. RECOMMENDATIONS: 1. Transfuse 2 units of red cells and repeat her CBC. I would advise transfusing her at least up to hemoglobin of 7 or 8. 2. Would recommend GI evaluation for lower and possibly upper endoscopy. If the source of bleeding is found, it may need to be cauterized or embolize. 3. I will also send some hemolysis labs to make sure this is not a separate problem. Thank for this consultation. We will continue to follow patient closely with you while she is in the hospital. /[id number]/MODL
[2018-07-15] MEDS ORDERED: ONDANSETRON DISINTEGRATING 4 MG TAB PO PRN (14:31)
[2018-07-15] MEDS ORDERED: ONDANSETRON 4 MG/2 ML VIAL IVP PRN (14:31)
--- NOTE | 2018-07-15 15:33 | PDGENHP ---
<Meenakshi Raymond - Last Filed: 07/15/18 17:58> History and Physical - Chief Complaint Blood in stool, low hemoglobin and hematocrit - History of Present Illness This is a very pleasant 83 y/o female with history of carcinoid tumor ( diagnosed in 2004) presenting with decreased hemoglobin and hematocrit (4.5/13.9 ). This is a significant change from 07/01/18 which H/H were 10.9/34.5. Onset was one week ago. She continued to have blood in her stool but last night was the worst per her son who is at bedside as well as her caregiver. He urged her to seek help yesterday but she wanted to rest. Initially, she reported hematuria no dysuria but he believes it is not this and instead hematochezia with significant amounts. He reports bright red blood. She endorses lightheadedness, no syncopal episodes. Denies chest pain, nausea, vomiting, shortness of breath. No abdominal pain or tenderness. Continues to have a healthy appetite. GI bleeding is not new to the pt however this blood loss and lab work is quite significant. 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 She was also found to have another angiodysplastic lesion in the cecum which was cauterized. She was started on Afinitor which significantly helped with her GI bleeding and per her son, did not have another episode. She stopped the use of the medication 3 months ago because the medication renally impaired her with a creatinine of 3.2. Since stopping, her creatinine is down to 2. Dr. Barrett is her oncologist. The pt's son called the clinic last night stating his mother was fatigued and having blood loss. They followed up this morning in clinic and even though vital signs were stable, she unexpectedly had significantly low H/H. She is being admitted for further diagnostic work-up and monitoring. Past Medical/Surgical History 1. Metastatic Carcinoid tumor 2. Anemia 3. Malignant hypertension 4. CHF 5. GI bleed 6. Cellulitis of LUE 7. Cardiac murmur 8. Appendectomy 9. Gastric bypass 10. Chronic renal insufficiency Social 1. Lives with son 2. Denies tobacco or illicit drug use. Denies alcohol. 3. Independent with her ADLs. History Information - Allergies/Home Medication List Allergies/Adverse Reactions: cyanocobalamin (vitamin B12) Allergy (Unknown, Verified 07/15/18 12:26) thiamine (vitamin B1) Allergy (Unknown, Verified 07/15/18 12:26) labetalol Allergy (Verified 07/15/18 12:26) Other-Enter Comments Home Medications: Multivitamins [Multivitamin (*)] 1 each PO DAILY 09/15/16 [Last Taken 07/14/18] Allopurinol [Allopurinol 300 MG (RX)] 150 mg PO DAILY 12/18/17 [Last Taken 07/15] Cholecalciferol Vit D3 [Vitamin D3 (*)] 1,000 units PO DAILY 07/15/18 [Last Taken 07/14/18] Ferrous Sulfate [Ferrous Sulf 325 MG (*)] 325 mg PO DAILY 07/15/18 [Last Taken 07/14/18] Furosemide [Lasix 20 MG (*)] 20 mg PO DAILY 07/15/18 [Last Taken 07/14/18] Hydralazine HCl 50 mg PO TID 07/15/18 [Last Taken 07/15/18] Metoprolol Succinate Xr [Toprol Xl 50 mg (*)] 50 mg PO DAILY 07/15/18 [Last Taken 07/15/18] Sodium Bicarbonate [Na Bicarb 650 MG (RX)] 650 mg PO TID 07/15/18 [Last Taken ] Tamsulosin HCl [Flomax 0.4 MG (*)] 0.4 mg PO DAILY 07/15/18 [Last Taken 07/15/18 ] amLODIPine BESYLATE [Norvasc 5 mg (*)] 5 mg PO HS 07/15/18 [Last Taken 07/14/18] I have personally reviewed and updated: family history, medical history, social history, surgical history Past Medical History: See HPI list - Past Medical History hypertension (Challenging to control) Additional medical history: Carcinoid tumor. Esophageal ulcer. Acute blood loss anemia - s/p 2 units prbc's recently due to hgb 7.5 (Apr 2018). 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 Tumor surgery x3 - Family History Additional family history: No recent sick family contacts - Social History Smoking Status: Never smoked Alcohol Use: None Drug Use: None Additional social history: Lives with her son, normally independent in ADLs Review of Systems Review of Systems: ROS: 10pt was reviewed & negative except for what was stated in HPI & below Constitutional: Reports: no symptoms EENMT: Reports: no symptoms Cardiac: Reports: lightheadedness Respiratory: Reports: no symptoms Gastrointestinal: Reports: blood streaked stools Genitourinary: Reports: no symptoms Muscolosketal: Reports: no symptoms Skin: Reports: no symptoms Neurological: Reports: no symptoms Hematologic/Lymphatic: Reports: no symptoms Immunologic/Allergy: Reports: other (See allergy list) Physical Exam Physical Exam: Lab data and imaging reviewed Temp Pulse Resp BP Pulse Ox 36.4 C 77 16 165/56 H 96 07/15/18 12:29 07/15/18 14:46 07/15/18 14:46 07/15/18 14:46 07/15/18 14:46 Constitutional: no apparent distress, not in pain, other (Pale-appearance) Eyes: PERRL, anicteric sclera, EOMI Ears, Nose, Mouth, Throat: moist mucous membranes, hearing normal, ears appear normal, poor dentition (Noted infected tooth requiring extraction; however DDS not wanting to until her blood pressure decreases) Cardiovascular: regular rate and rhythym, systolic murmur Peripheral Pulses: 2+: dorsalis-pedis (R) (Radial 2+), dorsalis-pedis (L) ( Radial 2+) Respiratory: no respiratory distress, no rales or rhonchi, clear to auscultation Gastrointestinal: normoactive bowel sounds, soft, non-tender abdomen, no palpable masses Genitourinary: no bladder fullness, no bladder tenderness Skin: warm, normal color, no rashes or abrasions, no fluctuance, no induration, No mottled Musculoskeletal: full muscle strength, no muscle tenderness, normal joint ROM, no joint effusions Neurologic: AAOx3, sensation intact bilaterally, CN II-XII Intact Psychiatric: interacting appropriately, not anxious, not encephalopathic, thought process linear Lymph, Heme, Immunologic: no cervical LAD, no supraclavicular LAD Lab Data & Imaging Review 07/15/18 13:17 07/15/18 13:17 WBC 5.75 10^3/uL (3.80-9.50) 07/15/18 13:17 RBC 1.42 10^6/uL (4.18-5.33) L 07/15/18 13:17 Hgb 4.5 g/dL (12.6-16.3) L* 07/15/18 13:17 Hct 13.9 % (38.0-47.0) L* 07/15/18 13:17 MCV 97.9 fL (81.5-99.8) 07/15/18 13:17 MCH 31.7 pg (27.9-34.1) 07/15/18 13:17 MCHC 32.4 g/dL (32.4-36.7) 07/15/18 13:17 RDW 17.5 % (11.5-15.2) H 07/15/18 13:17 Plt Count 124 10^3/uL (150-400) L 07/15/18 13:17 MPV 11.3 fL (8.7-11.7) 07/15/18 13:17 Neut % (Auto) 74.6 % (39.3-74.2) H 07/15/18 13:17 Lymph % (Auto) 18.1 % (15.0-45.0) 07/15/18 13:17 [place] % (Auto) 6.3 % (4.5-13.0) 07/15/18 13:17 Eos % (Auto) 0.3 % (0.6-7.6) L 07/15/18 13:17 Baso % (Auto) 0.2 % (0.3-1.7) L 07/15/18 13:17 Nucleat RBC Rel Count 0.0 % (0.0-0.2) 07/15/18 13:17 Absolute Neuts (auto) 4.29 10^3/uL (1.70-6.50) 07/15/18 13:17 Absolute Lymphs (auto) 1.04 10^3/uL (1.00-3.00) 07/15/18 13:17 Absolute Monos (auto) 0.36 10^3/uL (0.30-0.80) 07/15/18 13:17 Absolute Eos (auto) 0.02 10^3/uL (0.03-0.40) L 07/15/18 13:17 Absolute Basos (auto) 0.01 10^3/uL (0.02-0.10) L 07/15/18 13:17 Absolute Nucleated RBC 0.00 10^3/uL (0-0.01) 07/15/18 13:17 Immature Gran % 0.5 % (0.0-1.1) 07/15/18 13:17 Immature Gran # 0.03 10^3/uL (0.00-0.10) 07/15/18 13:17 Platelet Estimate DECREASED (ADEQ) L 07/15/18 13:17 Microcytic Cells 1+ H 07/15/18 13:17 Absolute Retic 0.020 10^6/uL (0.050-0.117) L 07/15/18 13:17 Percent Retic 1.75 % (0.98-2.67) 07/15/18 13:17 Patient ABO/Rh A POSITIVE 07/15/18 13:17 Antibody Screen NEGATIVE 07/15/18 13:17 Crossmatch IS Only See Detail 07/15/18 13:17 Assessment & Plan Plan: 1. Anemia -Cycle H/H Q6H x 4 -Checking CBC/BMP tomorrow; BMP pending -Cont tele -Transfuse 2 units RBC; reassess for potential for third unit of RBC -Place second IV for access -Iron panel pending 2. GI blood loss -Consulted GI. I spoke with Dr. Nancy Stone who will evaluate the pt tomorrow for possible scope. -NPO now and continuing until tomorrow after GI evaluation. The pt is hemodynamically stable now however we will monitor closely to ensure no hypotension and/or tachycardia with continuous tele monitoring and vital signs Q8H. -Place second IV for access 3. Carcinoid tumor -Consulted oncology. Dr. Reynoso aware and has evaluated pt. See his note for further detail. 4. Hypertension: currently stable. Holding lasix, hydralazine, and amlodipine until blood transfusions to ensure no hypotensive events. May consider restarting should her BP increase significantly. May continue to give metoprolol. 5. Chronic renal insufficiency -Avoid nephrotoxic agents -BMP pending Diet: NPO Code: Full VTE ppx: SCDs Dispo: Admit to inpatient <Jasson Browning Bk - Last Filed: 07/15/18 18:47> History and Physical - History of Present Illness Review of Systems Review of Systems: Physical Exam Physical Exam: Temp Pulse Resp BP Pulse Ox 36.4 C 85 16 157/63 H 98 07/15/18 16:29 07/15/18 16:29 07/15/18 16:29 07/15/18 16:29 07/15/18 16:29 Constitutional: no apparent distress, appears nourished, not in pain Gastrointestinal: normoactive bowel sounds, soft, non-tender abdomen, no palpable masses, No guarding, No rebound Neurologic: AAOx3, sensation intact bilaterally, CN II-XII Intact Lab Data & Imaging Review 07/15/18 13:17 07/15/18 13:17 WBC 5.75 10^3/uL (3.80-9.50) 07/15/18 13:17 RBC 1.42 10^6/uL (4.18-5.33) L 07/15/18 13:17 Hgb 4.5 g/dL (12.6-16.3) L* 07/15/18 13:17 Hct 13.9 % (38.0-47.0) L* 07/15/18 13:17 MCV 97.9 fL (81.5-99.8) 07/15/18 13:17 MCH 31.7 pg (27.9-34.1) 07/15/18 13:17 MCHC 32.4 g/dL (32.4-36.7) 07/15/18 13:17 RDW 17.5 % (11.5-15.2) H 07/15/18 13:17 Plt Count 124 10^3/uL (150-400) L 07/15/18 13:17 MPV 11.3 fL (8.7-11.7) 07/15/18 13:17 Neut % (Auto) 74.6 % (39.3-74.2) H 07/15/18 13:17 Lymph % (Auto) 18.1 % (15.0-45.0) 07/15/18 13:17 [place] % (Auto) 6.3 % (4.5-13.0) 07/15/18 13:17 Eos % (Auto) 0.3 % (0.6-7.6) L 07/15/18 13:17 Baso % (Auto) 0.2 % (0.3-1.7) L 07/15/18 13:17 Nucleat RBC Rel Count 0.0 % (0.0-0.2) 07/15/18 13:17 Absolute Neuts (auto) 4.29 10^3/uL (1.70-6.50) 07/15/18 13:17 Absolute Lymphs (auto) 1.04 10^3/uL (1.00-3.00) 07/15/18 13:17 Absolute Monos (auto) 0.36 10^3/uL (0.30-0.80) 07/15/18 13:17 Absolute Eos (auto) 0.02 10^3/uL (0.03-0.40) L 07/15/18 13:17 Absolute Basos (auto) 0.01 10^3/uL (0.02-0.10) L 07/15/18 13:17 Absolute Nucleated RBC 0.00 10^3/uL (0-0.01) 07/15/18 13:17 Immature Gran % 0.5 % (0.0-1.1) 07/15/18 13:17 Immature Gran # 0.03 10^3/uL (0.00-0.10) 07/15/18 13:17 Platelet Estimate DECREASED (ADEQ) L 07/15/18 13:17 Microcytic Cells 1+ H 07/15/18 13:17 Smear Review By Montserrat WESLEY MD 07/15/18 13:17 Absolute Retic 0.020 10^6/uL (0.050-0.117) L 07/15/18 13:17 Percent Retic 1.75 % (0.98-2.67) 07/15/18 13:17 Sodium 135 mEq/L (135-145) 07/15/18 13:17 Potassium 4.8 mEq/L (3.5-5.2) 07/15/18 13:17 Chloride 103 mEq/L (97-110) 07/15/18 13:17 Carbon Dioxide 22 mEq/l (22-31) 07/15/18 13:17 Anion Gap 10 mEq/L (6-14) 07/15/18 13:17 BUN 42 mg/dL (7-23) H 07/15/18 13:17 Creatinine 2.0 mg/dL (0.6-1.0) H 07/15/18 13:17 Estimated GFR 24 07/15/18 13:17 Glucose 90 mg/dL (70-100) 07/15/18 13:17 Calcium 8.3 mg/dL (8.5-10.4) L 07/15/18 13:17 Iron 97.0 mcg/dL (37.0-170.0) 07/15/18 13:17 TIBC 290 ug/dL (260-490) 07/15/18 13:17 Iron Saturation 33 % (20-55) 07/15/18 13:17 Ferritin 661.0 ng/mL (6.2-264.0) H 07/15/18 13:17 Lactate Dehydrogenase 441 IU/L (313-618) 07/15/18 13:17 Patient ABO/Rh A POSITIVE 07/15/18 13:17 Antibody Screen NEGATIVE 07/15/18 13:17 Crossmatch IS Only See Detail 07/15/18 13:17 Assessment & Plan Assessment: Carcinoid tumor (Acute) Anemia (Acute) Plan: Patient seen and examined at bedside. I agree with the history and physical per [facility] OFFICE COORDINATOR [place]. Apparently the patient is hemodynamically stable and does not appear to be in pain. Will proceed with transfusing 2 units of packed cells and reassess for bleeding in the morning. I also discussed the case with Dr. Cristiano Dumont is recommended that we do an MR enteroscopy if she does have any signs of new blood loss.
[2018-07-15] MEDS: SODIUM BICARBONATE 650 MG TAB PO SCH (22:38)
--- NOTE | 2018-07-15 23:44 | PDMN ---
Medical Necessity Medical necessity: Pt meets IP criteria as of 07/15/2018 per and ALAINA M-182 ( GI bleed); est los > 2 mn for ongoing tx and management of GI bleed with ongoing hematochezia, anemia (H&H 4.5/13.9) an elderly patient with carcinoid tumor, HTN and chronic renal insufficiency; requiring GI consultation with planned colonoscopy, blood transfusion, serial labs and monitoring.
[2018-07-16] MEDS: ALLOPURINOL 300 MG TAB PO SCH (10:02)
[2018-07-16] MEDS: METOPROLOL SUCCINATE XR 50 MG TAB PO SCH (10:02)
[2018-07-16] MEDS: FERROUS SULFATE 325 MG TAB PO SCH (10:03)
[2018-07-16] MEDS: SODIUM BICARBONATE 650 MG TAB PO SCH ×3 (10:03→22:53)
[2018-07-16] MEDS: TAMSULOSIN HCL 0.4 MG CAP PO SCH (10:03)
[2018-07-16] MEDS: CHOLECALCIFEROL VIT D3 1,000 UNITS TAB PO SCH (10:03)
--- NOTE | 2018-07-16 12:31 | GCON ---
DATE OF CONSULTATION: 07/16/2018 CHIEF COMPLAINT: GI bleed. HISTORY OF PRESENT ILLNESS: I am asked to see this patient in consultation by Dr. Browning for chief complaint of GIB. Patient is a very complex 83-year-old with history of metastatic carcinoid, who underwent a duodenojejunostomy in 2004 and for the past 2 years has been having issues with recurrent GI bleeding that has been very difficult to identify and treat. She was admitted to [facility] in August 2016. She underwent 2 colonoscopies and 2 upper endoscopies by 2 different physicians in my group, with failure to find active site of bleeding. She then went to [facility] and had a push endoscopy in September. They did find AVMs in the ileum and cecum. The ileal AVM was tattooed. These were treated with APC. She was placed on a medication for her carcinoid, and it was felt that this helped her bleeding. However, she then developed renal failure. This was stopped, and now has been noting some bright red blood to darker maroon-leigh blood for the past few days. However, no syncopal symptoms. No abdominal pain. No significant diarrhea. Although we do not have records, I believe her last colonoscopy with endoscopic therapy was in November 2016 at . ALLERGIES: Allergic to B12, thiamine, and labetalol. MEDICATIONS: On presentation are Norvasc, Flomax, iron, allopurinol, metoprolol , hydralazine, and Lasix. PAST MEDICAL HISTORY: Metastatic carcinoid tumor, status post resection of small bowel, anemia, malignant hypertension, CHF, GI bleed, cardiac murmur. SOCIAL HISTORY: She lives with her son. Denies tobacco use. FAMILY HISTORY: Negative for carcinoid. REVIEW OF SYSTEMS: I performed a complete review of systems which was negative except for the pertinent positives, negatives noted above in the HPI. PHYSICAL EXAMINATION: VITAL SIGNS: Afebrile at 36.4, BP 157/663, her pulse has been stable in the 60s and 70s. CONSTITUTIONAL: She is alert and oriented. EYES: No scleral icterus. HENT: No oral lesions. CARDIOVASCULAR: Regular rhythm. CHEST: Clear to auscultation. ABDOMEN: Soft, nontender. NEUROLOGIC: Grossly nonfocal. SKIN: No rashes or lesions. LABORATORY DATA: The patient presented with severe anemia with hemoglobin of 4.5, hematocrit 13.9. After transfusion today, her hemoglobin is 6.8, with hematocrit 20.4, platelets low at 124, white count 5.7. BUN and creatinine are 40 and 1.8. ASSESSMENT: A complex patient with recurrent gastrointestinal bleeding, previously treated for arteriovenous malformations, concern that she may have tumor that could be contributing to her bleeding. Historically, her site of bleeding has not been identified with conventional endoscopy; however, sites were identified with push endoscopy at [facility]. I discussed with the patient and her son about repeat upper endoscopy evaluation here and my concerns that we may not be successful in either identifying the site of bleeding or ability to treat it. If this is tumor, unfortunately we do not have hemostat spray available here as yet, and she may be more appropriate for advanced endoscopic treatment at [facility], given her history. The patient would like to discuss with the oncologist about possible medical therapy, as she appeared to respond to Afinitor. However, this apparently resulted in renal failure. Other options would include MR enterography and possible IR intervention. This has been previously discussed after prior gastrointestinal bleeding. PLAN: We will discuss with Oncology and hospitalist service. If she does have continued active bleeding, then options may be limited and may need to proceed with upper and lower endoscopy for evaluation. If unable to obtain hemostasis, then consider MR enterography versus transfer to . Thanks for this consult. Sincerely, /[id number]/HILARYL VIOLA
--- NOTE | 2018-07-16 12:32 | SOAPPROG ---
DENIS Progress Note Assessment/Plan: Assessment: 1. Metastatic carcinoid 2. Chronic renal insufficiency 3. GI bleed. Unclear source of bleed. could be from a tumor involving the small bowel. Previous studies (colonoscopy, EGD, capsule, and push enterography) have not been revealing. Plan: - appreciate GI recs. May get MR enterography, colonoscopy. Possible tx to [facility] for more advanced therapeutic procedures - transfuse if hgb<7 - no Rx for carcinoid right now. d/w dr. meyers 25 min spent w/ pt and in coordination of care. 07/16/18 12:31 Subjective: feels about the same. Objective: exam unchanged Vital Signs Temp Pulse Resp BP Pulse Ox 36.8 C 61 17 151/56 H 95 07/16/18 08:36 07/16/18 10:02 07/16/18 08:36 07/16/18 10:02 07/16/18 08:36 Laboratory Results 07/16/18 05:15 07/16/18 05:15 07/15/18 07/16/18 07/17/18 05:59 05:59 05:59 Intake Total 893 Output Total 6200 Balance -1457 ICD10 Worksheet Patient Problems: Problems Problem Status Onset Anemia Acute Carcinoid tumor Acute Choledocholithiasis Acute Gastric outlet obstruction Acute Hypotension Acute Ileus following gastrointestinal surgery Acute
--- NOTE | 2018-07-16 13:37 | GCON ---
DATE OF CONSULTATION: 07/16/2018 REASON FOR CONSULTATION: Opinion regarding acute kidney injury. HISTORY OF PRESENT ILLNESS: The patient is a very pleasant 83-year-old female who speaks very little [place] and I speak essentially, no Armenian; however, her son is at the bedside and speaks both lang uages fluently. The patient has a past medical history of metastatic carcinoid tumor for about 8 yea rs, has had 3 surgical interventions in the past. She follows with Dr. Barrett. The patient was in he r usual state of health. Earlier this month, she had hemoglobin in the middle to high 10 range. She , however, was feeling poorly several days ago and was seen in clinic, was noted to have a hemoglobin in the middle 4s and was admitted to [facility] for further evaluation and management of wha t is likely a gastrointestinal bleed. She received 1 unit of packed red blood cells and her hemoglob in increased from 4.5 up to 6.8. She feels better today than she did yesterday. Apart from fatigue, she says she feels reasonably well. She has not been having fevers, chills, naus ea, vomiting, chest pain. She has some shortness of breath. No cough or sputum production. No hemo ptysis, hematemesis, epistaxis, abdominal pain, diarrhea, constipation. She does not think she has b een losing much blood through her stool, but she does occasionally pass blood in her stool. No blurr ed vision, double vision, headache, orthopnea, paroxysmal nocturnal dyspnea, palpitations, or syncope . The patient has chronic kidney disease stage 4, this is likely due to some of her medications that she took for her carcinoid, including Afinitor and Lanreotide. The patient was diagnosed with hyper tension just a couple of years ago. Kidney ultrasound at that time was negative for hydronephrosis. A CT scan that was performed in March 2018, shows retroperitoneal nodes and a mass encasing her me senteric vasculature. [place] to lambda ratio and serum immunofixation were normal. Serum creatinine had been as high as the middle 2s. With cessation of Afinitor and losartan, her ser um creatinine was improving. Her creatinine in May 2018, was 2.60 down from 2.8, potassium was 4.4, albumin 4.3, glucose 101, estimated GFR of 16. Her free light chain ratio was normal at 1.3. U rine protein:creatinine ratio was about 1.2. On admission to the hospital, her serum creatinine was 2.0, again this is off Afinitor and losartan. With a blood transfusion, her serum creatinine has leatha pped to 1.8. PAST MEDICAL HISTORY: Significant for: 1. Metastatic carcinoid tumor. 2. Anemia of blood loss. 3. Hypertension. 4. Chronic kidney disease, stage 4. 5. Metabolic acidosis. ALLERGIES: Include labetalol, which caused low blood pressure, vitamin B12, thiamine, paroxetine. MEDICATIONS: 1. Allopurinol 100 mg daily. 2. Vitamin D 1000 international units daily. 3. Iron sulfate 325 mg daily. 4. Toprol-XL 50 mg daily. 5. Sodium bicarbonate 650 mg t.i.d. 6. Flomax 0.4 mg daily. 7. Zofran p.r.n. SOCIAL HISTORY: She has never been a smoker. She does not use alcohol, IV or recreational drugs. S he is a . 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 FAMILY HISTORY: Negative for renal disease, diabetes, or coronary artery disease. REVIEW OF SYSTEMS: A complete 12-point review of systems was performed with pertinent positives and negatives as per the previous sections. PHYSICAL EXAMINATION: VITAL SIGNS: Blood pressure is 151/56, pulse 64, temperature is 36.8, respira tions 17, urine output 1.9 L yesterday. Weight 43.7 kg. GENERAL: She is awake, alert, cooperative, thin, and is in no acute distress. HEENT: Pupils are reactive to light. Extraocular movements are intact. Mucous membranes are moist. NECK: No lymphadenopathy or thyromegaly. HEART: Regular. G rade 1/6 murmur. No rub. No S3. LUNGS: No rhonchi or rales. Has occasional wheezes. ABDOMEN: B owel sounds are positive. Nontender, nondistended. EXTREMITIES: No edema, cyanosis, or clubbing. NEUROLOGIC: No asterixis. SKIN: No unusual rashes or lesions. LYMPHATIC: No palpable lymphadenop athy or lymphedema. MUSCULOSKELETAL: No effusions or tenderness. LABORATORY: Serum sodium is 138, potassium 4.6, chloride 110, CO2 23, BUN 5, creatinine 1.8, glucose 83, calcium 8.2. Transferrin saturation is 33, ferritin 661, LDH 441. WBC 4.3, hemoglobin 6.8 up f rom 4.5, hematocrit 20 up from 14, platelet count 107,000. IMPRESSION: 1. Chronic kidney disease, stage 4, improving off her Afinitor and losartan therapy. 2. Metastatic carcinoid tumor that responded nicely to Afinitor. 3. Gastrointestinal bleed, several months after stopping her Afinitor therapy, this is likely due to the tumor invading her sigmoid colon. 4. Anemia of blood loss. 5. Hypertension, under reasonable control for now on Toprol-XL. Other medications that she has been taking at home, include amlodipine 5 mg per day, hydralazine 10 mg 3 times daily. RECOMMENDATIONS: I had a nice discussion with the patient and son, and they certainly would like to get back on something that has the effect on her tumor burden that Afinitor had, namely she was not h aving gastrointestinal hemorrhage. With that being said, they are also understanding that with Afini tor, her kidney function was nearly at the point where she was going to need dialysis, she does not w ant to have dialysis either. I think we all need to get together and come up with a potential soluti on to see if we can manage her blood pressure and carcinoid tumor, etc. without significantly worseni ng her kidney function. All questions were answered to the patient's and son's satisfaction. Thank you for allowing me to participate in the care of your patient. If there are any questions, pl ease do not hesitate to contact us. We will be following along with you. /[id number]/MODL
--- NOTE | 2018-07-16 13:45 | ASMTCMCOM ---
CM Note CM Note Notes: Patient plan of care reviewed in am rounds. She is a 83 year old female admitted with bleeding. Has known history of carcinoid tumor that had caused bleeding in the past. GI to consult. Patient normally lives at home with her some. CM to follow for needs. Plan: TBD Date Signed: 07/16/2018 01:45 PM Electronically Signed By:Sarah Byrd RN
--- NOTE | 2018-07-16 17:34 | HOSPPROG ---
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 case d/w dr cooney [facility] Objective: Vital Signs Temp Pulse Resp BP Pulse Ox 36.8 C 62 23 H 147/63 H 94 07/16/18 12:44 07/16/18 12:44 07/16/18 12:44 07/16/18 12:44 07/16/18 12:44 Laboratory Results 07/16/18 05:15 07/16/18 05:15 07/15/18 07/16/18 07/17/18 05:59 05:59 05:59 Intake Total 893 Output Total 2350 Balance -1457 - Physical Exam Constitutional: no apparent distress, appears nourished Eyes: PERRL, anicteric sclera Ears, Nose, Mouth, Throat: moist mucous membranes, hearing normal Cardiovascular: regular rate and rhythym, no murmur, rub, or gallop Respiratory: no respiratory distress, no rales or rhonchi Gastrointestinal: normoactive bowel sounds, soft, non-tender abdomen Genitourinary: no bladder fullness, No caro in urethra Skin: warm, normal color Musculoskeletal: full muscle strength, no muscle tenderness Neurologic: AAOx3 Psychiatric: interacting appropriately ICD10 Worksheet Patient Problems: Problems Problem Status Onset Anemia Acute Carcinoid tumor Acute Choledocholithiasis Acute Gastric outlet obstruction Acute Hypotension Acute Ileus following gastrointestinal surgery Acute
[2018-07-16] MEDS: ACETAMINOPHEN 325 MG TAB PO PRN (22:53)
[2018-07-17] MEDS ORDERED: FUROSEMIDE 20 MG/2 ML VIAL IVP ONE ×2 (00:30→06:30)
[2018-07-17] MEDS: FERROUS SULFATE 325 MG TAB PO SCH (08:32)
[2018-07-17] MEDS: METOPROLOL SUCCINATE XR 50 MG TAB PO SCH (08:33)
[2018-07-17] MEDS: CHOLECALCIFEROL VIT D3 1,000 UNITS TAB PO SCH (08:33)
[2018-07-17] MEDS: ALLOPURINOL 300 MG TAB PO SCH (08:33)
[2018-07-17] MEDS: SODIUM BICARBONATE 650 MG TAB PO SCH ×3 (08:33→21:49)
[2018-07-17] MEDS: TAMSULOSIN HCL 0.4 MG CAP PO SCH (08:33)
--- NOTE | 2018-07-17 11:08 | SOAPPROG ---
DENIS Progress Note Assessment/Plan: Assessment: GIB Pt with BRBR BM this AM but otherwise feeing better today ambulating in yusuf way. Son stated that last colon at in November was negative. Plan per last office visit was to do MRE if rebleeding as historically has been very hard to find site for bleeding endoscopically. I have offered repeat EGD/Colon vs MRE and son would prefer to di MRE if continued bleeding Plan: REC MR enterology and possible IR intervention if continued bleeding or any further bloody BMs today. 07/17/18 11:04 Subjective: CC BRBPR PT with BRB with BM this AM but feels better now Objective: Vital Signs Temp Pulse Resp BP Pulse Ox 36.4 C 53 L 14 167/74 H 97 07/17/18 08:00 07/17/18 08:33 07/17/18 08:00 07/17/18 08:33 07/17/18 08:00 Laboratory Results 07/17/18 08:21 07/17/18 08:21 07/16/18 07/17/18 07/18/18 05:59 05:59 05:59 Intake Total 893 1580 Output Total 2350 Balance -1457 1580 Physical Exam - Physical Exam General Appearance: no apparent distress Respiratory: lungs clear Cardiac/Chest: regular rate, rhythm Abdomen: non-tender, soft ICD10 Worksheet Patient Problems: Problems Problem Status Onset Anemia Acute Carcinoid tumor Acute Choledocholithiasis Acute Gastric outlet obstruction Acute Hypotension Acute Ileus following gastrointestinal surgery Acute
--- NOTE | 2018-07-17 11:35 | SOAPPROG ---
DENIS Progress Note Assessment/Plan: Assessment: This is my first meeting with Cris. I have reviewed the consult notes. It appears her baseline Cr was in the 1's in 2017, and 1.5 for most of 2018. She had JAMEL in the fall, and her Cr peaked at 3.2. She was taken off of her Since going off of her everolimus, she has had a GI bleed. She has been taken off of her losartan. Today, her Cr has improved to 1.8. Her BP remains high. I am going to speak with Dr. Barrett -I do not usually associate everolimus with renal injury, but I am not sure of the doses used. -On an US last fall, she had urinary retention. I will check a bladder scan -I would question whether she could have RVD. She is so petite that I believe we could get a reasonable doppler on her. We will continue to follow with you Subjective: Looks quite good Objective: Vital Signs Temp Pulse Resp BP Pulse Ox 36.4 C 53 L 14 167/74 H 97 07/17/18 08:00 07/17/18 08:33 07/17/18 08:00 07/17/18 08:33 07/17/18 08:00 Laboratory Results 07/17/18 08:21 07/17/18 08:21 07/16/18 07/17/18 07/18/18 05:59 05:59 05:59 Intake Total 893 1580 Output Total 2350 Balance -1457 1580 Physical Exam - Physical Exam General Appearance: no apparent distress Respiratory: lungs clear Cardiac/Chest: regular rate, rhythm, systolic murmur Skin: normal color Extremities: normal inspection Neuro/Psych: oriented x 3 ICD10 Worksheet Patient Problems: Problems Problem Status Onset Anemia Acute Carcinoid tumor Acute Choledocholithiasis Acute Gastric outlet obstruction Acute Hypotension Acute Ileus following gastrointestinal surgery Acute
--- NOTE | 2018-07-17 13:55 | SOAPPROG ---
SOAP Progress Note Assessment/Plan: Assessment: 1. Metastatic carcinoid 2. Chronic renal insufficiency 3. GI bleed. Hgb stable but ongoing bleeding. Plan: - reasonable to restart everolimus (which pt had been on in the past for carcinoid) as this seemed to correlate with control of bleeding, even though the mechanism of action would not really explain that. will monitor renal function ( this is the reason it was stopped) - appreciate GI recs - will continue to follow hgb 25 min spent w/ pt and in coordination of care. d/w dr singh (outpatient oncologist), dr francis, and pt's son Subjective: a few bloody bowel movements but bleeding appears to be slowing. Objective: exam unchanged Vital Signs Temp Pulse Resp BP Pulse Ox 36.4 C 56 L 18 160/60 H 98 07/17/18 11:49 07/17/18 11:49 07/17/18 11:49 07/17/18 12:10 07/17/18 11:49 Laboratory Results 07/17/18 08:21 07/17/18 08:21 07/16/18 07/17/18 07/18/18 05:59 05:59 05:59 Intake Total 893 1580 Output Total 2350 Balance -1457 1580 ICD10 Worksheet Patient Problems: Problems Problem Status Onset Anemia Acute Carcinoid tumor Acute Choledocholithiasis Acute Gastric outlet obstruction Acute Hypotension Acute Ileus following gastrointestinal surgery Acute
--- NOTE | 2018-07-17 15:36 | HOSPPROG ---
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 and recurrent GI bleed ABLA: yes repeat hct now transfuse for hct <7.5 07/17 stable today GI bleed: these have typically been AVM style bleeds has achieved cautery at [facility] w push enteroscopy family notes improvement in these bleeds on everolimus this was stopped due to apparent contribution to renal failure, although this is an uncommon side effect of everolimus renal funstion now stable will allow to restart, they are bringing in htn: hold most meds, still on bb code: full JAMEL: attributed to everolimus improved w transfusion will restart everolimus follow renal function dispo: inpt Subjective: case d/w eros romano. a few bloody bm's today, less than yesterday Objective: Vital Signs Temp Pulse Resp BP Pulse Ox 36.4 C 56 L 18 160/60 H 98 07/17/18 11:49 07/17/18 11:49 07/17/18 11:49 07/17/18 12:10 07/17/18 11:49 Laboratory Results 07/17/18 08:21 07/17/18 08:21 07/16/18 07/17/18 07/18/18 05:59 05:59 05:59 Intake Total 893 1580 Output Total 2350 Balance -1457 1580 - Physical Exam Constitutional: no apparent distress, appears nourished Eyes: PERRL, anicteric sclera Ears, Nose, Mouth, Throat: moist mucous membranes, hearing normal Cardiovascular: regular rate and rhythym, no murmur, rub, or gallop Respiratory: no respiratory distress, no rales or rhonchi Gastrointestinal: normoactive bowel sounds, soft, non-tender abdomen, No guarding, No rebound Genitourinary: no bladder fullness, No caro in urethra Skin: warm, normal color Musculoskeletal: full muscle strength, no muscle tenderness Neurologic: AAOx3 Psychiatric: interacting appropriately Lymph, Heme, Immunologic: no cervical LAD ICD10 Worksheet Patient Problems: Problems Problem Status Onset Anemia Acute Carcinoid tumor Acute Choledocholithiasis Acute Gastric outlet obstruction Acute Hypotension Acute Ileus following gastrointestinal surgery Acute
--- NOTE | 2018-07-17 16:25 | ASMTCMCOM ---
CM Note CM Note Notes: Patient plan of care reviewed in am rounds. She continues to experience GI bleeding. GI following. [facility]. Son in room providing help to patient. food mixer repairer present during rounds this am. CM to follow for need. Plan: Hopefully return home to son's when medically cleared for discharge. Date Signed: 07/17/2018 04:24 PM Electronically Signed By:Sarah Byrd RN
[2018-07-17] MEDS: Everolimus [Afinitor] 7.5 MG PO SCH (21:50)
[2018-07-18 05:13] LABS: PLATELET COUNT 94 10^3/uL (150-400)
--- NOTE | 2018-07-18 09:09 | SOAPPROG ---
DENIS Progress Note Assessment/Plan: Assessment: JAMEL, resolving GI bleed with anemia of blood loss recent transfusion metastatic carcinoid everolimus restarted Plan: continue everolimus follow renal function follow hgb continue renal follow up with Dr. Ordonez 07/18/18 09:05 Subjective: up to the chair denies pain nausea or anorexia, enjoying her omelet sleeping fine overall feels better Objective: Vital Signs Temp Pulse Resp BP Pulse Ox 36.8 C 59 L 16 134/57 H 95 07/18/18 07:19 07/18/18 07:19 07/18/18 07:19 07/18/18 07:19 07/18/18 07:19 Laboratory Results 07/18/18 04:55 07/18/18 04:55 07/17/18 07/18/18 07/19/18 05:59 05:59 05:59 Intake Total 1580 500 Balance 1580 500 Physical Exam - Physical Exam General Appearance: alert, no apparent distress Neck: normal inspection Respiratory: No rhonchi, No wheezing Cardiac/Chest: regular rate, rhythm, systolic murmur, No edema Abdomen: normal bowel sounds, non-tender, soft Skin: warm/dry Extremities: No swelling Neuro/Psych: alert, normal mood/affect, oriented x 3 ICD10 Worksheet Patient Problems: Problems Problem Status Onset Anemia Acute Carcinoid tumor Acute Choledocholithiasis Acute Gastric outlet obstruction Acute Hypotension Acute Ileus following gastrointestinal surgery Acute
[2018-07-18] MEDS: SODIUM BICARBONATE 650 MG TAB PO SCH ×3 (09:46→21:41)
[2018-07-18] MEDS: TAMSULOSIN HCL 0.4 MG CAP PO SCH (09:47)
[2018-07-18] MEDS: FERROUS SULFATE 325 MG TAB PO SCH (09:47)
[2018-07-18] MEDS: CHOLECALCIFEROL VIT D3 1,000 UNITS TAB PO SCH (09:47)
[2018-07-18] MEDS: ALLOPURINOL 300 MG TAB PO SCH (09:47)
[2018-07-18] MEDS: METOPROLOL SUCCINATE XR 25 MG TAB PO SCH (09:48)
[2018-07-18] MEDS: Everolimus [Afinitor] 7.5 MG PO SCH (09:49)
--- NOTE | 2018-07-18 10:56 | SOAPPROG ---
DENIS Progress Note Assessment/Plan: Assessment: 1. Metastatic carcinoid 2. Chronic renal insufficiency 3. GI bleed. Hgb falling due to ongoing bleeding. Plan: - restart everolimus at 7.5 mg daily. will follow renal function. renal impairment seen in only 1-2% of patients taking this medication, so unclear if it was related. - appreciate GI recs - will continue to follow hgb. will transfuse 2 units RBC today. 25 min spent w/ pt and in coordination of care. Subjective: feels well. Objective: exam unchanged Vital Signs Temp Pulse Resp BP Pulse Ox 36.8 C 66 16 169/63 H 95 07/18/18 07:19 07/18/18 09:48 07/18/18 07:19 07/18/18 09:48 07/18/18 07:19 Laboratory Results 07/18/18 04:55 07/18/18 04:55 07/17/18 07/18/18 07/19/18 05:59 05:59 05:59 Intake Total 1580 500 Balance 1580 500 ICD10 Worksheet Patient Problems: Problems Problem Status Onset Anemia Acute Carcinoid tumor Acute Choledocholithiasis Acute Gastric outlet obstruction Acute Hypotension Acute Ileus following gastrointestinal surgery Acute
--- NOTE | 2018-07-18 12:20 | SOAPPROG ---
SOLUIS Progress Note Assessment/Plan: Assessment: GIB Pt with BRBR BM this AM but otherwise feeing better today ambulating in [address]. Son stated that last colon at in November was negative. Plan per last office visit was to do MRE if rebleeding as historically has been very hard to find site for bleeding endoscopically. I have offered repeat EGD/Colon vs MRE and son would prefer to di MRE if continued bleeding Plan: REC MR enterology and possible IR intervention if continued bleeding or any further bloody BMs today. 07/17/18 11:04 07/18/18 12:16 Anemia worse today Blood with stools still with active bleeding many potenial sites given h/o AVMs. Again discussed with pt and son option sthey refer less invasive approahc Plan MRE today, consider IR embolization vs attempt at endoscopic treatment as guided by results Subjective: CC BRBPR Pt with out pain, bloody stools noted per nursing staff Objective: Vital Signs Temp Pulse Resp BP Pulse Ox 36.6 C 62 20 138/56 H 96 07/18/18 12:00 07/18/18 12:00 07/18/18 12:00 07/18/18 12:00 07/18/18 12:00 Laboratory Results 07/18/18 04:55 07/18/18 04:55 07/17/18 07/18/18 07/19/18 05:59 05:59 05:59 Intake Total 1580 500 Balance 1580 500 Physical Exam - Physical Exam General Appearance: alert Respiratory: lungs clear Cardiac/Chest: regular rate, rhythm Abdomen: non-tender, soft ICD10 Worksheet Patient Problems: Problems Problem Status Onset Anemia Acute Carcinoid tumor Acute Choledocholithiasis Acute Gastric outlet obstruction Acute Hypotension Acute Ileus following gastrointestinal surgery Acute
--- NOTE | 2018-07-18 14:24 | ASMTCMCOM ---
CM Note CM Note Notes: Patient plan of care reviewed in am rounds. She continues to experience GI bleeding. GI following. May need to go to [facility] if embolization is required. CM to follow for need. Plan: Hopefully return home to son's when medically cleared for discharge. Date Signed: 07/18/2018 02:24 PM Electronically Signed By:Katelynn Carson
--- NOTE | 2018-07-18 15:43 | ASMTCMCOM ---
CM Note CM Note Notes: CM spoke with PT. PT would like pt to receive an in-home safety eval once she is d/katia and possible in-home PT. Referral was made to [facility] for PT. 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 D/C Plan: Home with [facility] PT. Date Signed: 07/18/2018 03:42 PM Electronically Signed By:Katelynn Carson
--- NOTE | 2018-07-18 18:17 | HOSPPROG ---
Hospitalist Progress Note Assessment/Plan: DIAGNOSES: * acute GI bleed, probably lower * acute post hemorrhagic anemia, requiring transfusion 2 units of red blood cells again today after prior transfusions * prior history of GI bleed from distal ileal angiodysplasia treated at [place] * acute on chronic renal failure, question if due to her everolimus * hypertension * history of metastatic carcinoid, leiomyosarcoma and breast cancer Complicated scenario and that it is felt that the everolimus has protected her from ongoing bleeding in the past, yet may be causing her renal failure or contributing to hypertension. She currently is having very high blood pressures during transfusion which she and her explained always happens when she gets transfusion. PLANS: * 2 units transfusion red blood cells today * Tagged red blood cell scan later today (patient is felt not to be a candidate for either MRI or CT imaging to evaluate her bleeding at this time) * Follow vital signs closely, recheck hemoglobin * Follow renal function closely * Manage blood pressures carefully given her active bleeding Seen by me today on hospitalist rounds and multidisciplinary rounds Reviewed in detail today with Dr. Vee Stone and Dr. 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, my review: Sinus Exam: alert oriented skin warm dry color ok resps not labored lungs clear BSs heart regular abd soft nondistended nontender, bowel sounds present limbs warm, no edema iv site ok Lab data: Hemoglobin back down to 6 after being over 9 following transfusions yesterday Platelets down to 94,000, unclear if due to bleeding losses or other cause Creatinine minimally improved at 1.7 with stable electrolytes Objective: Vital Signs Temp Pulse Resp BP Pulse Ox 36.5 C 68 20 192/80 H 97 07/18/18 15:57 07/18/18 15:57 07/18/18 15:57 07/18/18 15:57 07/18/18 15:57 Laboratory Results 07/18/18 04:55 07/18/18 04:55 07/17/18 07/18/18 07/19/18 06:59 06:59 06:59 Intake Total 1580 500 Balance 1580 500 - Time Spent With Patient Time Spent with Patient: greater than 35 minutes Time Spent with Patient: Greater than 35 minutes spent on this patients care, greater than 50% of time spent counseling, educating, and coordinating care regarding the above mentioned plan. ICD10 Worksheet Patient Problems: Problems Problem Status Onset Anemia Acute Carcinoid tumor Acute Choledocholithiasis Acute Gastric outlet obstruction Acute Hypotension Acute Ileus following gastrointestinal surgery Acute
--- NOTE | 2018-07-18 22:59 | HOSPPROG ---
Hospitalist Progress Note Assessment/Plan: Hospitalist night float note Notified by RN that red take study had been resulted. Bleeding is identified in the transverse colon. I called patient's son CIS code notified him of results. As per his discussion with Dr. Stone patient and son prefer to proceed with the less invasive options including IR to correct GI bleed. Reviewed vital signs currently stable. Repeat H&H is pending. Monitor closely overnight and further discussion with IR in the morning as per day team. Objective: Vital Signs Temp Pulse Resp BP Pulse Ox 37.0 C 62 16 173/74 H 98 07/18/18 20:00 07/18/18 20:00 07/18/18 20:00 07/18/18 20:00 07/18/18 20:00 Laboratory Results 07/18/18 04:55 07/17/18 07/18/18 07/19/18 05:59 05:59 05:59 Intake Total 1049 868 6708 Balance 2074 552 7048 ICD10 Worksheet Patient Problems: Problems Problem Status Onset Carcinoid tumor Acute Gastric outlet obstruction Acute Ileus following gastrointestinal surgery Acute Choledocholithiasis Acute Hypotension Acute Anemia Acute
[2018-07-19] MEDS: ALLOPURINOL 300 MG TAB PO SCH (08:31)
[2018-07-19] MEDS: SODIUM BICARBONATE 650 MG TAB PO SCH ×3 (08:31→21:32)
[2018-07-19] MEDS: METOPROLOL SUCCINATE XR 25 MG TAB PO SCH (08:31)
[2018-07-19] MEDS: FERROUS SULFATE 325 MG TAB PO SCH (08:31)
[2018-07-19] MEDS: CHOLECALCIFEROL VIT D3 1,000 UNITS TAB PO SCH (08:31)
[2018-07-19] MEDS: TAMSULOSIN HCL 0.4 MG CAP PO SCH (08:31)
[2018-07-19] MEDS: Everolimus [Afinitor] 7.5 MG PO SCH (08:32)
--- NOTE | 2018-07-19 11:39 | SOAPPROG ---
SOAP Progress Note Assessment/Plan: Assessment: JAMEL, resolving, creat stable at 1.7 GI bleed with anemia of blood loss, nuc med study shows colon bleed recent transfusion metastatic carcinoid HTN, needs better control everolimus restarted Plan: continue everolimus increase Amlodipine to 5 mg daily follow renal function follow hgb need a plan for colon bleed. Discussed renal risks of angiogram and IV contrast if needed, reviewed renal protective therapies with family all questions answered. continue renal follow up as outpatient 07/18/18 09:05 07/19/18 11:35 Subjective: sons at bedside patient denies cp sob nausea or vomiting spirits good no abd pain getting up and around sleeping well Objective: Vital Signs Temp Pulse Resp BP Pulse Ox 36.6 C 69 16 185/64 H 100 07/19/18 08:37 07/19/18 08:37 07/19/18 08:37 07/19/18 08:37 07/19/18 08:37 Laboratory Results 07/18/18 22:42 07/19/18 04:35 07/18/18 07/19/18 07/20/18 05:59 05:59 05:59 Intake Total 500 1950 Balance 500 1950 Physical Exam - Physical Exam General Appearance: alert, other Neck: normal inspection Respiratory: No rhonchi, No wheezing Cardiac/Chest: edema, systolic murmur, No friction rub Abdomen: normal bowel sounds, non-tender, soft Skin: warm/dry Extremities: No swelling Neuro/Psych: alert, normal mood/affect, oriented x 3 ICD10 Worksheet Patient Problems: Problems Problem Status Onset Anemia Acute Carcinoid tumor Acute Choledocholithiasis Acute Gastric outlet obstruction Acute Hypotension Acute Ileus following gastrointestinal surgery Acute
--- NOTE | 2018-07-19 11:48 | SOAPPROG ---
SOAP Progress Note Assessment/Plan: Assessment/Plan: 83 yo women w metastatic carcinoid admitted w GIB 1. GIB - from carcinoid tagged RBC identifies possible source as transverse colon monitoring H/H if drops again, favor attempt at colonoscopy w cauterization realizing the potential complications 2. metastatic carcinoid - restarted everolimus 7.5mg and monitoring BP so far, bleeding stopped 3. HTN - ?from Everolimus but possible SE 4. CKD - appreciate renal avoid nephrotoxins and control BP as much as possible Subjective: No acute events Denies bleeding No SOB or chest pain Objective: Vital Signs Temp Pulse Resp BP Pulse Ox 36.6 C 69 16 185/64 H 100 07/19/18 08:37 07/19/18 08:37 07/19/18 08:37 07/19/18 08:37 07/19/18 08:37 Laboratory Results 07/18/18 22:42 07/19/18 04:35 07/18/18 07/19/18 07/20/18 05:59 05:59 05:59 Intake Total 500 1950 Balance 500 1949 Gen - elderly woman HEENT - pale conjunctiva CV - RRR Abd - soft, NT Ext - no sig edema ICD10 Worksheet Patient Problems: Problems Problem Status Onset Anemia Acute Carcinoid tumor Acute Choledocholithiasis Acute Gastric outlet obstruction Acute Hypotension Acute Ileus following gastrointestinal surgery Acute
--- NOTE | 2018-07-19 16:10 | HOSPPROG ---
Hospitalist Progress Note Assessment/Plan: DIAGNOSES: * acute GI bleed, appears to be mid transverse colon source by tagged cell scan study; ? Diverticular or AVM, other source * acute post hemorrhagic anemia, requiring transfusion total of 6 units red blood cells so far * prior history of GI bleed from distal ileal angiodysplasia treated at [place] * acute on chronic renal failure, question if due to her everolimus (this is an unlikely side effect of this medicine but can occasionally occur.) -improved here in the hospital so far * hypertension -remains poorly controlled, ongoing titration for that * history of metastatic carcinoid, leiomyosarcoma and breast cancer PLANS: * Continue close follow-up vital signs and hemoglobin, watching for any further bleeding symptoms * Follow renal function closely * Manage blood pressures carefully given her bleeding but at this point should be able to titrate a bit more aggressively; Dr. Jones over its has added increased dose of Norvasc today Seen by me today on hospitalist rounds and multidisciplinary rounds Reviewed in detail today with Dr. Junior Arana and Dr. 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 There is notable bleeding in the mid transverse colon on the study. Objective: Vital Signs Temp Pulse Resp BP Pulse Ox 36.7 C 65 16 188/85 H 99 07/19/18 15:45 07/19/18 15:55 07/19/18 15:55 07/19/18 15:55 07/19/18 15:45 Laboratory Results 07/18/18 22:42 07/19/18 04:35 07/18/18 07/19/18 07/20/18 06:59 06:59 06:59 Intake Total 500 1950 Balance 500 1950 - Time Spent With Patient Time Spent with Patient: greater than 35 minutes Time Spent with Patient: Greater than 35 minutes spent on this patients care, greater than 50% of time spent counseling, educating, and coordinating care regarding the above mentioned plan. ICD10 Worksheet Patient Problems: Problems Problem Status Onset Anemia Acute Carcinoid tumor Acute Choledocholithiasis Acute Gastric outlet obstruction Acute Hypotension Acute Ileus following gastrointestinal surgery Acute
--- NOTE | 2018-07-19 17:12 | SOAPPROG ---
SOLUIS Progress Note Assessment/Plan: Assessment: 1. 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 2. Post-hemorrhagic anemia. Plan: I had a lengthy discussion with the patient and her family today concerning best intervention for recurrent bleeding(colonoscopy vs IR ablation of bleeding site). I spend 45 minutes today in counseling and education as well as coordination of care with hospitalist. I would recommend IR angiography and ablation of bleeding site if she rebleeds during this admission. I see no role for colonoscopic intervention. Junior Arana MD [phone] 07/19/18 17:23 Subjective: CC: LGI Bleed. Interval HPI: Patient has had no bleeding per rectum today. No GI complains. Two sons in room. Discussed care options with all three of them at length today (30 minutes). Objective: Vital Signs Temp Pulse Resp BP Pulse Ox 36.7 C 65 16 188/85 H 99 07/19/18 15:45 07/19/18 15:55 07/19/18 15:55 07/19/18 15:55 07/19/18 15:45 Laboratory Results 07/18/18 22:42 07/19/18 04:35 07/18/18 07/19/18 07/20/18 05:59 05:59 05:59 Intake Total 500 1950 Balance 500 1950 Physical Exam - Physical Exam General Appearance: alert, no apparent distress Respiratory: lungs clear, normal breath sounds Cardiac/Chest: regular rate, rhythm Abdomen: normal bowel sounds, non-tender, soft Skin: normal color, warm/dry Neuro/Psych: alert, normal mood/affect, oriented x 3 ICD10 Worksheet Patient Problems: Problems Problem Status Onset Anemia Acute Carcinoid tumor Acute Choledocholithiasis Acute Gastric outlet obstruction Acute Hypotension Acute Ileus following gastrointestinal surgery Acute
[2018-07-19] MEDS: hydrALAZINE 20 MG/ML VIAL IVP PRN (18:27)
[2018-07-20] MEDS: ACETAMINOPHEN 325 MG TAB PO PRN (00:05)
--- NOTE | 2018-07-20 09:49 | HOSPPROG ---
Hospitalist Progress Note Assessment/Plan: DIAGNOSES: * acute GI bleed, appears to be mid transverse colon source by tagged cell scan study; ? Diverticular or AVM, other source * acute post hemorrhagic anemia, requiring transfusion total of 6 units red blood cells so far * prior history of GI bleed from distal ileal angiodysplasia treated at [facility] * acute on chronic renal failure, question if due to her everolimus (this is an unlikely side effect of this medicine but can occasionally occur.) -improved here in the hospital so far * hypertension -somewhat better today still in the 160s 170s systolic * history of metastatic carcinoid, leiomyosarcoma and breast cancer PLANS: * Continue close follow-up vital signs, watching for any further bleeding symptoms * I have ordered repeat hemoglobin for tomorrow * Follow renal function closely * Continue titration of blood pressure medicines Seen by me today on hospitalist rounds and multidisciplinary rounds Will review with GI, Oncology, Nephrology today - ? What will be our specific goals for discharge if she continues to have no bleeding SUBJECTIVE: Feeling better today Up walking about in hallways No abdominal Pain No further bleeding OBJECTIVE Vitals reviewed: Still with significant hypertension, otherwise stable without fever Sales Agent Financial Report Service, my review: Sinus Exam: alert oriented skin warm dry color ok resps not labored lungs clear BSs heart regular abd soft nondistended nontender, bowel sounds present limbs warm, no edema iv site ok Lab data: Creatinine stable at 1.7 Albumin remains low A bit hyperchloremic otherwise lytes are okay Imaging: I reviewed the images from her tagged red blood cell scan for study from last night along with radiologist report. There is notable bleeding in the mid transverse colon on the study. Objective: Vital Signs Temp Pulse Resp BP Pulse Ox 36.9 C 67 18 163/77 H 96 07/20/18 07:37 07/20/18 07:37 07/20/18 07:37 07/20/18 07:37 07/20/18 07:37 Laboratory Results 07/18/18 22:42 07/20/18 04:25 07/19/18 07/20/18 07/21/18 06:59 06:59 06:59 Intake Total 1950 450 Balance 1950 450 ICD10 Worksheet Patient Problems: Problems Problem Status Onset Anemia Acute Carcinoid tumor Acute Choledocholithiasis Acute Gastric outlet obstruction Acute Hypotension Acute Ileus following gastrointestinal surgery Acute
[2018-07-20] MEDS: Everolimus [Afinitor] 7.5 MG PO SCH (10:08)
[2018-07-20] MEDS: CHOLECALCIFEROL VIT D3 1,000 UNITS TAB PO SCH (10:09)
[2018-07-20] MEDS: amLODIPine BESYLATE 5 MG TAB PO SCH (10:09)
[2018-07-20] MEDS: ALLOPURINOL 300 MG TAB PO SCH (10:09)
[2018-07-20] MEDS: SODIUM BICARBONATE 650 MG TAB PO SCH ×3 (10:09→22:41)
[2018-07-20] MEDS: TAMSULOSIN HCL 0.4 MG CAP PO SCH (10:10)
[2018-07-20] MEDS: FERROUS SULFATE 325 MG TAB PO SCH (10:10)
--- NOTE | 2018-07-20 11:24 | SOAPPROG ---
SOAP Progress Note Assessment/Plan: Assessment: 1. Metastatic carcinoid with possible bleeding site in transverse colon from same vs diverticular bleed vs AVM (less likely); clinically without bleeding x 48 hours. 2. Post-hemorrhagic anemia; improved. Plan: Home later today or in am if no further GI bleed. Junior Arana MD [phone] 07/20/18 11:21 Subjective: CC: LGI Bleed. Interval HPI: NO bleeding x 48 hours. Up in halls walking with son. No GI complaints today. Objective: Vital Signs Temp Pulse Resp BP Pulse Ox 36.9 C 67 18 163/77 H 96 07/20/18 07:37 07/20/18 07:37 07/20/18 07:37 07/20/18 10:09 07/20/18 07:37 Laboratory Results 07/18/18 22:42 07/20/18 04:25 07/19/18 07/20/18 07/21/18 05:59 05:59 05:59 Intake Total 1950 450 Balance 1950 450 Physical Exam - Physical Exam General Appearance: alert, no apparent distress Respiratory: lungs clear Cardiac/Chest: regular rate, rhythm Abdomen: normal bowel sounds, non-tender, soft Skin: normal color, warm/dry Neuro/Psych: alert, normal mood/affect, oriented x 3 ICD10 Worksheet Patient Problems: Problems Problem Status Onset Anemia Acute Carcinoid tumor Acute Choledocholithiasis Acute Gastric outlet obstruction Acute Hypotension Acute Ileus following gastrointestinal surgery Acute
--- NOTE | 2018-07-20 11:40 | SOAPPROG ---
SOAP Progress Note Assessment/Plan: Assessment/Plan: 83 yo women w metastatic carcinoid admitted w GIB 1. GIB - from carcinoid tagged RBC identifies possible source as transverse colon monitoring H/H and has been stable x 48 hours if drops again in future, favor attempt at colonoscopy w cauterization realizing the potential complications 2. metastatic carcinoid - restarted everolimus 7.5mg and monitoring BP so far, bleeding stopped 3. HTN - ?from Everolimus but possible SE could increase amlodipine if needed 4. CKD - appreciate renal avoid nephrotoxins and control BP as much as possible Cr stable if discharges today, will need follow up in ur clinic next week which we can arrange 07/20/18 11:38 Subjective: No acute events feeling better Objective: Vital Signs Temp Pulse Resp BP Pulse Ox 37.1 C 71 18 176/71 H 96 07/20/18 11:30 07/20/18 11:30 07/20/18 11:30 07/20/18 11:30 07/20/18 11:30 Laboratory Results 07/18/18 22:42 07/20/18 04:25 07/19/18 07/20/18 07/21/18 05:59 05:59 05:59 Intake Total 1950 450 Balance 1950 450 Gen - NAD HEENT - pale conjunctiva CV - RRR Abd - soft, NT, BS+ Ext - no sig edema ICD10 Worksheet Patient Problems: Problems Problem Status Onset Anemia Acute Carcinoid tumor Acute Choledocholithiasis Acute Gastric outlet obstruction Acute Hypotension Acute Ileus following gastrointestinal surgery Acute
--- NOTE | 2018-07-20 12:17 | SOAPPROG ---
SOAP Progress Note Assessment/Plan: Assessment: JAMEL, resolving, creat stable at 1.7 GI bleed with anemia of blood loss, nuc med study shows colon bleed recent transfusion metastatic carcinoid HTN, needs better control everolimus restarted Plan: continue everolimus increase Amlodipine to 5 mg daily, added hydralazine 10 mg TID follow renal function follow hgb continue renal follow up as outpatient 07/18/18 09:05 07/19/18 11:35 07/20/18 12:13 Subjective: up to chair interview via escort car driver denies pain sob nausea or vomiting denies passing any bloody stools getting up and around appetite about at baseline wants to go home Objective: Vital Signs Temp Pulse Resp BP Pulse Ox 37.1 C 71 18 176/71 H 96 07/20/18 11:30 07/20/18 11:30 07/20/18 11:30 07/20/18 11:30 07/20/18 11:30 Laboratory Results 07/18/18 22:42 07/20/18 04:25 07/19/18 07/20/18 07/21/18 05:59 05:59 05:59 Intake Total 1950 450 Balance 1950 450 Physical Exam - Physical Exam General Appearance: alert, thin Neck: normal inspection Respiratory: No rales, No wheezing Cardiac/Chest: regular rate, rhythm, No edema, No friction rub Abdomen: normal bowel sounds, non-tender, soft Skin: warm/dry Extremities: other (trace edema) Neuro/Psych: alert, normal mood/affect, oriented x 3 ICD10 Worksheet Patient Problems: Problems Problem Status Onset Anemia Acute Carcinoid tumor Acute Choledocholithiasis Acute Gastric outlet obstruction Acute Hypotension Acute Ileus following gastrointestinal surgery Acute
[2018-07-20] MEDS: METOPROLOL SUCCINATE XR 25 MG TAB PO SCH (12:48)
[2018-07-20] MEDS: hydrALAZINE 10 MG TAB PO SCH ×2 (15:35→22:41)
--- NOTE | 2018-07-20 18:04 | HOSPPROG ---
Hospitalist Progress Note Assessment/Plan: DIAGNOSES: * acute GI bleed, appears to be mid transverse colon source by tagged cell scan study; ? Diverticular or AVM, other source * acute post hemorrhagic anemia, requiring transfusion total of 6 units red blood cells so far * prior history of GI bleed from distal ileal angiodysplasia treated at [facility] * acute on chronic renal failure, question if due to her everolimus (this is an unlikely side effect of this medicine but can occasionally occur.) -improved here in the hospital so far * hypertension -a bit higher than yesterday on average but did get as low as 145 systolic in the setting of increasing medications * history of metastatic carcinoid, leiomyosarcoma and breast cancer PLANS: * Continue close follow-up vital signs, watching for any further bleeding symptoms; if no problems with plan on discharge tomorrow * Continue titration of blood pressure medicines; hydralazine increased today * Will need very careful follow-up for blood pressures, renal function, any signs of bleeding in the outpatient setting Seen by me today on hospitalist rounds and multidisciplinary rounds I reviewed today with Dr. Junior Arana in detail SUBJECTIVE: Feeling better today Up walking about in hallways No abdominal Pain No further bleeding OBJECTIVE Vitals reviewed: Still with significant hypertension, otherwise stable without fever Hospice Community Liaison, my review: Sinus Exam: alert oriented skin warm dry color ok resps not labored lungs clear BSs heart regular abd soft nondistended nontender, bowel sounds present limbs warm, no edema iv site ok Lab data: Creatinine stable at 1.7 Albumin remains low A bit hyperchloremic otherwise lytes are okay Objective: Vital Signs Temp Pulse Resp BP Pulse Ox 37.1 C 76 18 200/73 H 97 07/20/18 15:33 07/20/18 15:33 07/20/18 15:33 07/20/18 15:33 07/20/18 15:33 Laboratory Results 07/18/18 22:42 07/20/18 04:25 07/19/18 07/20/18 07/21/18 06:59 06:59 06:59 Intake Total 1950 450 Balance 1950 450 ICD10 Worksheet Patient Problems: Problems Problem Status Onset Anemia Acute Carcinoid tumor Acute Choledocholithiasis Acute Gastric outlet obstruction Acute Hypotension Acute Ileus following gastrointestinal surgery Acute
[2018-07-20] MEDS: hydrALAZINE 20 MG/ML VIAL IVP PRN (19:48)
--- NOTE | 2018-07-21 09:21 | SOAPPROG ---
SOAP Progress Note Assessment/Plan: Assessment: 1. Metastatic carcinoid with possible bleeding site in transverse colon from same vs diverticular bleed vs AVM (less likely); clinically without bleeding x 72 hours. 2. Post-hemorrhagic anemia; improved. Plan: Home later today or in am if no further GI bleed. Junior Arana MD [phone] 07/21/18 09:19 Subjective: CC: LGI bleed. Interval HPI: Two BM over last 24 hours without blood. Objective: Vital Signs Temp Pulse Resp BP Pulse Ox 36.6 C 74 18 156/64 H 96 07/21/18 08:00 07/21/18 08:00 07/21/18 08:00 07/21/18 08:00 07/21/18 08:00 Laboratory Results 07/21/18 04:20 07/21/18 04:20 07/20/18 07/21/18 07/22/18 05:59 05:59 05:59 Intake Total 450 100 Balance 450 100 Physical Exam - Physical Exam General Appearance: alert, no apparent distress Respiratory: lungs clear, normal breath sounds Cardiac/Chest: regular rate, rhythm Abdomen: normal bowel sounds, non-tender, soft Skin: normal color, warm/dry ICD10 Worksheet Patient Problems: Problems Problem Status Onset Anemia Acute Carcinoid tumor Acute Choledocholithiasis Acute Gastric outlet obstruction Acute Hypotension Acute Ileus following gastrointestinal surgery Acute
[2018-07-21] MEDS: CHOLECALCIFEROL VIT D3 1,000 UNITS TAB PO SCH (10:02)
--- NOTE | 2018-07-21 10:02 | PDDCSUM ---
Discharge Summary Discharge Summary: DISCHARGE DIAGNOSES: * acute GI bleed, lower from mid transverse colon, uncertain lesion * post hemorrhagic anemia, requiring transfusion 6 units of packed red blood cells * ongoing renal insufficiency, some acute insufficiency here improved * chronic hypertension with difficult control, ongoing high blood pressures here * history of carcinoid, leiomyosarcoma, and breast cancer CONSULTANTS: Dr. Vee Cottrell PROCEDURES: Transfusions 6 units packed red blood cells Abdominal ultrasound Tagged red blood cell scan showing bleeding at what appears to be mid transverse colon HOSPITAL COURSE SUMMARY: This patient with a complicated past medical history including prior bleeding from angiodysplasia of the distal ileum, multiple tumors including leiomyosarcoma as well as GI carcinoid, and renal failure that had been thought to possibly be due to everolimus, comes in with acute GI bleeding that was severe with red blood. Notably in the past the everolimus was felt to be keeping recurrent bleeding at bay and it was the only thing found in the past that had controlled her bleeding. This episode of bleeding started not long after she was taken off of the everolimus She was not hypotensive here, however did have a hemoglobin of 4 as she arrived here and required total of 6 units packed red blood cell for transfusion. At this time her hemoglobin is stable approximately 9. There has been no bleeding now for approximately 48 hr. A tagged red cell scan did show evidence of bleeding in the mid transverse colon. However as she was stabilizing was felt that colonoscopic approach would not be helpful in might aggravate bleeding. There is consideration for angiographic efforts to treat bleeding but the bleeding seemed to stop once we started back on everolimus. The current plan is to send her home on the everolimus and follow closely for any further bleeding. If she has further bleeding, likely angiograms with attempted IR treatment for bleed. She was not given any iron here but she had a ferritin level of 661 and iron saturation of 33%. If she has trouble correcting her anemia over time these numbers may need to be rechecked. She has chronic severe hypertension that has been poorly controlled over time. Here because of her severe bleeding some of her blood pressure medicines were decreased in dose. We have been gradually increasing the medications here and her blood pressures are improved but still not ideal. Will need to get her back on her usual dose of hydralazine as she is getting a much lower does than usual at present. Her Norvasc dose has also been lower here. She will need ongoing follow-up of her blood pressure which should be in excellent control of possible due to her renal issues. Her ever alignment S had been stopped in the outpatient setting due to onset of renal failure with a question of whether the medication could be causing the renal failure. This complication is only present in 1-2% of patients taking that medication. On review of her blood pressures and other issues here in the hospital was felt likely that her renal failure was not caused by the medication but more likely from her blood pressure. It was elected to resume that medicine but her bleeding and renal functional need to be followed closely. PENDING TEST RESULTS: None MEDICATION CHANGES: Increase Norvasc to 10 mg daily Everolimus Resumed at her previous dose FOLLOW-UP PLAN: Within 10 days at Nephrology Clinic Within 1 month that gastroenterology clinic Greater than 35 minutes bedside and care coordination time today
[2018-07-21] MEDS: hydrALAZINE 10 MG TAB PO SCH ×2 (10:03→15:14)
[2018-07-21] MEDS: Everolimus [Afinitor] 7.5 MG PO SCH (10:03)
[2018-07-21] MEDS: FERROUS SULFATE 325 MG TAB PO SCH (10:03)
[2018-07-21] MEDS: METOPROLOL SUCCINATE XR 25 MG TAB PO SCH (10:04)
[2018-07-21] MEDS: SODIUM BICARBONATE 650 MG TAB PO SCH ×2 (10:04→15:14)
[2018-07-21] MEDS: TAMSULOSIN HCL 0.4 MG CAP PO SCH (10:04)
[2018-07-21] MEDS: ALLOPURINOL 300 MG TAB PO SCH (10:11)
[2018-07-21] MEDS ORDERED: POTASSIUM CL 20 MEQ TAB PO ONE ×2 (11:12→15:15)
--- NOTE | 2018-07-21 11:50 | SOAPPROG ---
SOAP Progress Note Assessment/Plan: Assessment/Plan: JAMEL on CKD 3: Cr back down to 1.6, closer to her baseline. - Avoid hypotension and nephrotoxins. - Will plan to f/u in outpatient clinic. HTN: BP better this am. Hypokalemia: will give KCl 20meq x1 today. Metabolic acidosis: pt on oral sodium bicarb tabs. Thank you for the interesting consult. Nephrology will sign off and f/u as outpatient, please call if you have any additional questions or concerns. Subjective: Pt has no complaints this am except that she is hungry. Objective: Vital Signs Temp Pulse Resp BP Pulse Ox 36.6 C 74 18 156/64 H 96 07/21/18 08:00 07/21/18 10:04 07/21/18 08:00 07/21/18 10:14 07/21/18 08:00 Laboratory Results 07/21/18 04:20 07/21/18 04:20 07/20/18 07/21/18 07/22/18 05:59 05:59 05:59 Intake Total 450 100 Balance 450 100 General: alert and oriented, no acute distress Eyes: EOMI, PERRL OP: Clear CV: RRR Resp: nonlabored respirations on RA Abd: Soft, NT/ND Ext: no edema BLE Neuro: CN II-XII grossly intact Psych: cooperative ICD10 Worksheet Patient Problems: Problems Problem Status Onset Anemia Acute Carcinoid tumor Acute Choledocholithiasis Acute Gastric outlet obstruction Acute Hypotension Acute Ileus following gastrointestinal surgery Acute
[2018-07-21] MEDS: amLODIPine BESYLATE 5 MG TAB PO SCH (14:18)
[2018-07-21 15:17] VITALS: BP 201/74
--- NOTE | 2018-07-21 16:28 | ASMTLACE ---
LACE Length of stay for Answers: 4-6 days current admission Acuity / Level of Answers: Yes Care: Did the patient have an inpatient admission? Comorbidities - select Answers: Any tumor (including all that apply lymphoma or leukemia) Congestive heart failure Other Notes: HTN # of Emergency department Answers: 1-2 visits in the last 6 months Score: 13 Date Signed: 07/21/2018 04:27 PM Electronically Signed By:Sarah Byrd RN
--- NOTE | 2018-07-23 13:16 | ASDISCHSUM ---
Discharge Information Plan Status:Home with No Needs Medically Cleared to Leave:07/21/2018 Discharge Date:07/21/2018 04:16 PM CM D/C Disposition:Home, Routine, Self-Care ADT D/C Disposition:Home, Routine, Self-Care Projected Discharge Date:07/21/2018 11:00 AM Transportation at D/C: Discharge Delay Reason: Follow-Up Date:07/21/2018 11:00 AM Discharge Slot: Final Diagnosis: Placement Information Referral Type:*Home Health Care Services Referral ID:[id number] Provider Name: Address 1: Phone Number: Address 2: Fax Number: City: Selection Factors: State: Patient Contact Information Contact Name:MARILIN Relationship:Son Address:[address] Work Phone: City:[place] Phone: State/[facility] Code:[place] [address] Email: Financial Information Financial Class:Medicare Primary Plan Desc:MEDICARE IP PART B ONLY Primary Plan Number:[id number] Secondary Plan Desc:[place] Secondary Plan Number:[id number] Assessment Information LACE LACE Length of stay for Answers: 4-6 days current admission Acuity / Level of Answers: Yes Care: Did the patient have an inpatient admission? Comorbidities - select Answers: Any tumor (including all that apply lymphoma or leukemia) Congestive heart failure Other Notes: HTN # of Emergency department Answers: 1-2 visits in the last 6 months Score: 13 Date Signed: 07/21/2018 04:27 PM Electronically Signed By:Sarah Byrd RN [facility] CM Progress Note CM Note CM Note Notes: Patient plan of care reviewed in am rounds. She is a 83 year old female admitted with bleeding. Has known history of carcinoid tumor that had caused bleeding in the past. GI to consult. Patient normally lives at home with her some. CM to follow for needs. Plan: TBD Date Signed: 07/16/2018 01:45 PM Electronically Signed By:Sarah Byrd RN [facility] CM Progress Note CM Note CM Note Notes: Patient plan of care reviewed in am rounds. She continues to experience GI bleeding. GI following. May need to go to [place] [facility] if embolization is required. Son in room providing help to patient. mechanic welder present during rounds this am. CM to follow for need. Plan: Hopefully return home to son's when medically cleared for discharge. Date Signed: 07/17/2018 04:24 PM Electronically Signed By:Sarah Byrd RN [facility] CM Progress Note CM Note CM Note Notes: Patient plan of care reviewed in am rounds. She continues to experience GI bleeding. GI following. May need to go to [place] if embolization is required. CM to follow for need. Plan: Hopefully return home to son's when medically cleared for discharge. Date Signed: 07/18/2018 02:24 PM Electronically Signed By:Katelynn Carson [facility] CM Progress Note CM Note CM Note Notes: CM spoke with PT. PT would like pt to receive an in-home safety eval once she is d/katia and possible in-home PT. Referral was made to [facility] for PT. They were told that pt is monoligual vietnamese and will provide an interpretor. D/C Plan: Home with [facility] PT. Date Signed: 07/18/2018 03:42 PM Electronically Signed By:Katelynn Carson Intervention Information
== END 2018-07-21 16:16 | disposition home health service (06) | DRG 378 ==
LOC: F1N 15:15
PROVIDERS: ADMIT Internal Medicine; ATTEND Internal Medicine
PROC: 30233N1 Transfusion of Nonautologous Red Blood Cells into Peripheral Vein, Percutaneous Approach (ICD-10-PCS; principal; 2018-07-15)
DX: K92.0 Hematemesis (principal); D62 Acute posthemorrhagic anemia; C7A.029 Malignant carcinoid tumor of the large intestine, unspecified portion; I12.9 Hypertensive chronic kidney disease with stage 1 through stage 4 chronic kidney disease, or unspecified chronic kidney disease; N18.4 Chronic kidney disease, stage 4 (severe); N28.9 Disorder of kidney and ureter, unspecified; Z85.3 Personal history of malignant neoplasm of breast; Z85.89 Personal history of malignant neoplasm of other organs and systems
CPT/HCPCS: 83010-90; 97112-GP; 97161-GP; A9560; J0360; J1642; J1940; P9016; P9040

== ENCOUNTER → 2018-08-19 | Outpatient (CLI) | payer OTHER, MEDICAID | LOC: FIMAGING 14:36 | PROVIDERS: ATTEND Internal Medicine Gastroenterology | DX: K92.1 Melena (principal) | CPT/HCPCS: 84260-90 ==

== ENCOUNTER → 2018-09-02 | Outpatient (CLI) | payer OTHER, MEDICAID | LOC: FOBOP 18:41 | PROVIDERS: ATTEND Internal Medicine Hematology & Oncology | PROC: 30233N1 Transfusion of Nonautologous Red Blood Cells into Peripheral Vein, Percutaneous Approach (ICD-10-PCS; principal; 2018-09-02) | DX: D50.9 Iron deficiency anemia, unspecified (principal); C7A.00 Malignant carcinoid tumor of unspecified site; N18.9 Chronic kidney disease, unspecified; E86.0 Dehydration; K55.21 Angiodysplasia of colon with hemorrhage; L03.90 Cellulitis, unspecified; R60.9 Edema, unspecified; R53.83 Other fatigue | CPT/HCPCS: 36430; P9016; 84260-90; P9040 ==

== ENCOUNTER → 2018-09-10 | Outpatient (CLI) | payer OTHER, MEDICAID | LOC: BHFA 15:30 | PROVIDERS: ATTEND Internal Medicine Cardiovascular Disease | DX: I34.0 Nonrheumatic mitral (valve) insufficiency (principal) ==

== ENCOUNTER 2018-09-19 20:58 | Inpatient (IN) | payer OTHER, MEDICAID ==
--- NOTE | 2018-09-19 21:24 | EDPHY ---
H & P Stated Complaint: RIGHT LOWER LEG SWELLING X 2 WEEKS WORSE TODAY Time Seen by Provider: 09/19/18 21:23 - Personal History Current Tetanus Diphtheria and Acellular Pertussis (TDAP): Unsure Tetanus Vaccine Date: Son unsure of date - Medical/Surgical History Hx Asthma: No Hx Chronic Respiratory Disease: No Hx Diabetes: No Hx Cardiac Disease: Yes Hx Renal Disease: Yes Hx Cirrhosis: No Hx Alcoholism: No Hx HIV/AIDS: No Hx Splenectomy or Spleen Trauma: No Other PMH: gi bleed/carcinoid tumor, HTn, gastric bypass, appendix removed, Esophogeal ulcer GOUT, storing water in legs. - Social History Smoking Status: Never smoked Constitutional: Initial Vital Signs Temperature (C) 37.3 C 09/19/18 21:01 Heart Rate 79 09/19/18 21:01 Respiratory Rate 16 09/19/18 21:01 Blood Pressure 198/74 H 09/19/18 21:01 O2 Sat (%) 98 09/19/18 21:01 O2 Delivery Mode Room Air Allergies/Adverse Reactions: cyanocobalamin (vitamin B12) Allergy (Unknown, Verified 07/15/18 12:26) thiamine (vitamin B1) Allergy (Unknown, Verified 07/15/18 12:26) labetalol Allergy (Verified 07/15/18 12:26) Other-Enter Comments Home Medications: Medication Instructions Recorded Multivitamins [Multivitamin (*)] 1 each PO DAILY 09/15/16 Allopurinol [Allopurinol 300 MG 150 mg PO DAILY 12/18/17 (RX)] Cholecalciferol Vit D3 [Vitamin D3 1,000 units PO DAILY 07/15/18 (*)] Furosemide [Lasix 20 MG (*)] 10 - 20 mg PO DAILY 07/15/18 Hydralazine HCl 50 mg PO TID 07/15/18 Metoprolol Succinate Xr [Toprol Xl 50 mg PO DAILY@12 07/15/18 50 mg (*)] Sodium Bicarbonate [Na Bicarb] 650 mg PO TID 07/15/18 Tamsulosin HCl [Flomax 0.4 MG (*)] 0.4 mg PO DAILY 07/15/18 Everolimus [Afinitor] 7.5 mg PO DAILY 07/21/18 amLODIPine BESYLATE [Norvasc 10 mg 10 mg PO HS 09/19/18 (*)] Medical Decision Making - Diagnostics Imaging: Discussed imaging studies w/ call specialist Radiologist, I viewed and interpreted images myself ED Course/Re-evaluation: CHIEF COMPLAINT: Leg swelling can't walk today HISTORY OF PRESENT ILLNESS: 83-year-old female who was recently admitted to the hospital both here and then at [facility]. She has a longstanding history of congestive heart failure and is on a diuretic. She has a fairly normal echocardiogram at least compared to a year ago according to her son. She has had intermittent acute kidney injury and at times her creatinine bumps up into the mid threes. Consequently, they stopped giving her Lasix. Her legs have subsequently started swelling and today she cannot walk. The right leg is swollen more than left. She denies any shortness of breath. She is not hypoxemic. REVIEW OF SYSTEMS: A comprehensive 10 system review of systems is otherwise negative aside from elements mentioned in the history of present illness and medical decision making. PHYSICAL EXAM: HR, BP, O2 Sat, RR. Temp noted General Appearance: Alert, well hydrated, appropriate, and non-toxic appearing. Head: Atraumatic without scalp tenderness or obvious injury Eyes: Pupils equal, round, reactive to light and accommodation, EOMI, no trauma , no injection. Ears: Clear bilaterally, no perforation, normal landmarks Nose: Atraumatic, no rhinorrhea, clear. Throat: There is no erythema or exudates, no lesions, normal tonsils, mucus membranes moist. Neck: Supple, 2+ carotid upstroke, nontender, no lymphadenopathy. Respiratory: No retractions, no distress, no wheezes, and no accessory muscle use. Lungs are clear to auscultation bilaterally. Cardiovascular: Regular rate and rhythm, no murmurs, rubs, or gallops. Bilateral carotid, radial, dorsalis pedis, and posterior tibial pulses intact. Good capillary refill all extremities. Gastrointestinal: Abdomen is soft, nontender, non-distended, no masses, no rebound, no guarding, no peritoneal signs. Musculoskeletal: 2+ pitting edema bilateral extremities with the right lower extremity more swollen than the left slightly. No cellulitis. Normal active ROM of all extremities, atraumatic. Neurological: Alert, appropriate, and interactive. The patient has normal DTRs and non-focal cranial nerves, motor, sensory, and cerebellar exam. Skin: No rashes, good turgor, no nodules on palpation. Past medical history: Congestive heart failure, acute kidney injury, gastrointestinal bleeding Past surgical history: Cauterizing Gastrointestinal colonic bleeding Family history: Noncontributory Social history: , lives with her son, does not abuse tobacco drugs or alcohol, retired DIAGNOSTICS/PROCEDURES/CRITICAL CARE TIME: Study: Ultrasound of the: Right lower extremity Indication: Swelling rule out DVT Results: US scan of the body parts was obtained. The results of the study are normal. The study was read by the radiologist, Dr. Caal. I viewed the images myself on the PACS system. DIFFERENTIAL DIAGNOSIS: The differential diagnosis for the patient's leg swelling included but was not limited to hypoalbuminemia, congestive heart failure, cor pulmonale, venous stasis, trauma, and DVT. MEDICAL DECISION MAKING: This patient most likely has bilateral leg swelling from the fact that they have stopped her diuretic due to her renal insufficiency. Consequently, her lower extremities became more more swollen. Her son stated that she cannot ambulate today. She usually ambulates with a walker without difficulty. He had to carry her down the stairs to bring her to the emergency department. I am going to admit this patient to adjust her medicine. She needs additional diuretic therapy however she is risking kidney injury if that continues. [id number]: I spoke with Dr. Caal, radiologist, who reports that the US is negative for a DVT. Departure - Departure Disposition: [facility] Inpatient Acute
[2018-09-19 22:43] LABS: PLATELET COUNT 193 10^3/uL (150-400)
[2018-09-19] MEDS ORDERED: ACETAMINOPHEN 325 MG TAB PO PRN (22:49)
[2018-09-19] MEDS ORDERED: ONDANSETRON DISINTEGRATING 4 MG TAB PO PRN (22:49)
[2018-09-19] MEDS ORDERED: ONDANSETRON 4 MG/2 ML VIAL IVP PRN (22:49)
[2018-09-19] MEDS ORDERED: POTASSIUM CL 20 MEQ TAB PO ONE (22:54)
--- NOTE | 2018-09-20 01:27 | PDGENHP ---
History and Physical - Chief Complaint lower extremity swelling and pain - History of Present Illness Source - Patient is predominantly Citizen Of [place] speaking. 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 EMR reviewed and case discussed with accepting Hospitalist. HPI - This is a pleasant 83 yo F with pmhx significant for HTN, HLD, diastolic dysfunction, mild mitral regurg, gout, CKD 3, carcinoid tumor with history of GIB and chronic anemia, who presents to the ED today after her son noted patient with increasing LE pain and associated swelling R>L ongoing x 2 weeks. Patient denies any fevers/chills, nausea/vomiting/diarrhea, dysuria/hematuria, cough/SOB, rashes or sores. She denies any chest pain/palpitations. 2 weeks ago patient was noted to have worsening renal function with a creatinine > 3.0 ( baseline appears to be 1.7-1.9) and so her lasix was held. Patient recently resumed lasix today with 20mg taken earlier this AM. Patient son reports that she is normally able to complete her ADLs however today patient with increasing pain and some generalized weakness that patient son had to help her down the stairs at home to bring her to the hospital where she normally would have been able to do this independently. Currently patient denies any LE pain. no numbness/tingling. She had been experiencing some gouty flairs over the last several weeks and her allopurinol had been changed to colchicine. History Information - Allergies/Home Medication List Allergies/Adverse Reactions: cyanocobalamin (vitamin B12) Allergy (Unknown, Verified 07/15/18 12:26) thiamine (vitamin B1) Allergy (Unknown, Verified 07/15/18 12:26) labetalol Allergy (Verified 07/15/18 12:26) Other-Enter Comments Home Medications: Multivitamins [Multivitamin (*)] 1 each PO DAILY 09/15/16 [Last Taken 09/19/18] Allopurinol [Allopurinol 300 MG (RX)] 150 mg PO DAILY 12/18/17 [Last Taken 09/19] Cholecalciferol Vit D3 [Vitamin D3 (*)] 1,000 units PO DAILY 07/15/18 [Last Taken 09/19/18] Furosemide [Lasix 20 MG (*)] 10 - 20 mg PO DAILY 07/15/18 [Last Taken 09/19/18] Hydralazine HCl 50 mg PO TID 07/15/18 [Last Taken 09/19/18 21:00] Metoprolol Succinate Xr [Toprol Xl 50 mg (*)] 50 mg PO DAILY@12 07/15/18 [Last Taken 09/19/18] Sodium Bicarbonate [Na Bicarb] 650 mg PO TID 07/15/18 [Last Taken 09/19/18 21:00 ] Tamsulosin HCl [Flomax 0.4 MG (*)] 0.4 mg PO DAILY 07/15/18 [Last Taken 09/19/18 ] amLODIPine BESYLATE [Norvasc 10 mg (*)] 10 mg PO HS 09/19/18 [Last Taken 21:00] I have personally reviewed and updated: family history, medical history, social history, surgical history - Past Medical History hypertension (Challenging to control) Additional medical history: Carcinoid tumor. Esophageal ulcer. Acute blood loss anemia - s/p 2 units prbc's recently due to hgb 7.5 (Apr 2018, 06/2018). 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 HTN. gout. distolic dysfunction, LVH, mild MR. CKD 3. hx of UTI remotely. - Surgical History Reports: cholecystectomy Additional surgical history: Gastric bypass for tumor causing obstruction. Tumor surgery x3. appy - Family History Additional family history: No recent sick family contacts. neg for cancer. - Social History Smoking Status: Never smoked Alcohol Use: None Drug Use: None Additional social history: Lives with her son, normally independent in ADLs. uses walker Review of Systems Review of Systems: ROS: 10pt was reviewed & negative except for what was stated in HPI & below Physical Exam Physical Exam: Temp Pulse Resp BP Pulse Ox 37.4 C 81 16 184/73 H 96 09/19/18 23:12 09/19/18 23:12 09/19/18 23:12 09/19/18 23:12 09/19/18 23:12 Constitutional: no apparent distress, appears nourished, not in pain, chronically ill appearing, other (NAD. thin frail appearing elderly female lays quietly in bed with towel over eyes. pleasant and cooperative. ) Eyes: PERRL (decreased reactivity to light bilaterally but symmetric. ), anicteric sclera, EOMI, No scleral injection Ears, Nose, Mouth, Throat: moist mucous membranes, poor dentition (missing dentition.), hard of hearing Cardiovascular: regular rate and rhythym, systolic murmur, pulses symmetric bilaterally, edema (2+ pitting slightly increased right toes/foot compared to left. ) Peripheral Pulses: 2+: dorsalis-pedis (R), dorsalis-pedis (L) Respiratory: no respiratory distress, no rales or rhonchi, clear to auscultation , reduced air movement (diminished bibasilar. ), No expiratory wheeze, No inspiratory crackles, No respiratory distress Gastrointestinal: normoactive bowel sounds, soft, non-tender abdomen, no palpable masses, No distension Genitourinary: no bladder tenderness, No caro in urethra Skin: warm, no rashes or abrasions, other (pallor.) Musculoskeletal: normal joint ROM, generalized weakness (patient requires assistance sitting up in bed. ), No full muscle strength, No pain with ROM Neurologic: AAOx3, sensation intact bilaterally, No facial droop Psychiatric: interacting appropriately, not anxious, not encephalopathic, thought process linear Lab Data & Imaging Review 09/19/18 22:30 09/19/18 22:30 WBC 7.92 10^3/uL (3.80-9.50) 09/19/18 22: RBC 3.44 10^6/uL (4.18-5.33) L 09/19/18 22:30 Hgb 10.2 g/dL (12.6-16.3) L 09/19/18 22:30 Hct 31.1 % (38.0-47.0) L 09/19/18 22:30 MCV 90.4 fL (81.5-99.8) 09/19/18 22: MCH 29.7 pg (27.9-34.1) 09/19/18 22: MCHC 32.8 g/dL (32.4-36.7) 09/19/18 22: RDW 16.7 % (11.5-15.2) H 09/19/18 22:30 Plt Count 193 10^3/uL (150-400) 03/29/19 22:30 MPV 9.2 fL (8.7-11.7) 09/19/18 22:30 Neut % (Auto) Not Reported 09/19/18 22:30 Lymph % (Auto) Not Reported 09/19/18 22:30 Mcdonald % (Auto) Not Reported 09/19/18 22:30 Eos % (Auto) Not Reported 09/19/18 22:30 Baso % (Auto) Not Reported 09/19/18 22:30 Nucleat RBC Rel Count Not Reported 09/19/18 22:30 Absolute Neuts (auto) Not Reported 09/19/18 22:30 Absolute Lymphs (auto) Not Reported 09/19/18 22:30 Absolute Monos (auto) Not Reported 09/19/18 22:30 Absolute Eos (auto) Not Reported 09/19/18 22:30 Absolute Basos (auto) Not Reported 09/19/18 22:30 Absolute Nucleated RBC Not Reported 09/19/18 22:30 Immature Gran % Not Reported 09/19/18 22:30 Seg Neutrophils % 47.0 % 09/19/18 22:30 Band Neutrophils % 36.0 % 09/19/18 22:30 Lymphocytes % 8.0 % 09/19/18 22:30 Monocytes % 8.0 % 09/19/18 22:30 Eosinophils % 0.0 % 09/19/18 22:30 Basophils % 1.0 % 09/19/18 22:30 Metamyelocytes % 0.0 % 09/19/18 22:30 Myelocytes % 0.0 % 09/19/18 22:30 Promyelocytes % 0.0 % 09/19/18 22:30 Blast Cells % 0.0 % 09/19/18 22:30 Immature Gran # Not Reported 09/19/18 22:30 Absolute Seg Neuts 3.72 10^3/uL (1.70-6.50) 09/19/18 22:30 Absolute Band Neuts 2.85 10^3/uL (0.00-0.70) H 09/19/18 22:30 Absolute Lymphocytes 0.63 10^3/uL (1.00-3.00) L 09/19/18 22:30 Absolute Monocytes 0.63 10^3/uL (0.30-0.80) 09/19/18 22:30 Absolute Eosinophils 0.00 10^3/uL (0.03-0.40) L 09/19/18 22:30 Absolute Basophils 0.08 10^3/uL (0.02-0.10) 09/19/18 22:30 Absolute Metamyelocyte 0.00 10^3/mL (0.00-0.00) 09/19/18 22:30 Absolute Myelocytes 0.00 10^3/mL (0.00-0.00) 09/19/18 22: Absolute Promyelocytes 0.00 10^3/uL (0.00-0.00) 09/19/18 22:30 Absolute Plasma Cells 0.00 10^3/uL (0.00-0.00) 09/19/18 22: Nucleated RBCs 0 /100 WBC (0-0) 09/19/18 22:30 Absolute Blast Cells 0.00 10^3/uL (0.00-0.00) 09/19/18: Plasma Cells % 0.0 % 09/19/18 22:30 Platelet Estimate ADEQUATE (ADEQ) 09/19/18 22:30 Oval Macrocytes 1+ H 09/19/18 22:30 Acanthocytes (Spur) 1+ H 09/19/18 22:30 Sodium 138 mEq/L (135-145) 09/19/18 22:30 Potassium 2.8 mEq/L (3.5-5.2) L 09/19/18 22:30 Chloride 104 mEq/L (97-110) 09/19/18 22:30 Carbon Dioxide 22 mEq/l (22-31) 09/19/18 22:30 Anion Gap 12 mEq/L (6-14) 09/19/18 22:30 BUN 32 mg/dL (7-23) H 09/19/18 22:30 Creatinine 1.8 mg/dL (0.6-1.0) H 09/19/18 22:30 Estimated GFR 27 09/19/18 22:30 Glucose 111 mg/dL (70-100) H 09/19/18 22:30 Calcium 7.8 mg/dL (8.5-10.4) L 09/19/18 22:30 NT-Pro-B Natriuret Pep 8340 pg/mL (0-450) H 09/19/18 22:30 Imaging Review: Ultrasound Venous Duplex/Doppler Right Leg History: Pain and swelling. Findings: Ultrasound venous duplex and Doppler imaging of the common femoral vein, femoral vein, popliteal vein, calf veins, greater saphenous vein origin, and contralateral common femoral vein demonstrates normal compressibility, color flow, and Doppler flow without deep venous thrombosis. Impression: No deep venous thrombosis right leg. Results called to Dr. Everton Perry at 10:30 PM Dictated By: Jewel Caal MD PA and lateral chest. Clinical History: Chest Pain Comparison Study: December 15, 2014. Findings: The lungs are clear. No pleural disease identified. Heart size is normal. Visualized osseous structures appear normal. Impression: Negative chest. Dictated By: Jewel Caal MD Assessment & Plan Assessment: This is a pleasant 83 yo F with pmhx significant for HTN, HLD, diastolic dysfunction, mild mitral regurg, gout, CKD 3, carcinoid tumor with history of GIB and chronic anemia, who presents to the ED today after her son noted patient with increasing LE pain and associated swelling R>L ongoing x 2 weeks and new generalized weakness today. # LE edema 2/2 #acute on chronic diastolic chf and hx acute on ckd. pt with elevated btnp, LE edema. lasix was previously held 2/2 acute on ckd changes with son reporting creatinine as high as 3.2. creatinine now 1.8 close to baseline. salt/fluid restrict. diurese once potassium has been adequately replaced. elevated extremities. # hypokalemia - in setting of diuretic therapy and low k+ diet. oral replacement ordered. repeat am K+ before resuming diuresis. # generalized weakness - likely multifactorial including hypokalemia, chf exacerbation, anemia, elderly age. PT/OT prn. # carcinoid tumor - continue patient everolimus. monitor AM CBC. bandemia noted. afebrile. # anemia of chronic disease and chronic blood loss # benign essential HTN - BPs elevated. continue hydralazine. metoprolol prn if unresponsive. holding lasix currently in setting of hypokalemia and amlodipine in setting of edema. # gout - continue colchicine. # ckd 3 - appears close to baseline. repeat am bmp. FEN - SLIV. electrolyte monitoring (check mag and ionized calcium) and replacement prn. cardiac diet with fluid restriction 1500 mls/24 hours. PPx - SCDs as tolerated. no anticoagulation with history of gib. COR - FULL. Dispo - Patient admit changed to inpatient status on med/surg floor with remote tele for electrolyte replacement and diuretic therapy. If patient requires additional care consider transfer to PCU however patient arrived to med/surg floor before my arrival to bedside.
[2018-09-20 05:17] LABS: PLATELET COUNT 192 10^3/uL (150-400)
[2018-09-20] MEDS ORDERED: POTASSIUM CL 20 MEQ TAB PO ONE ×2 (07:53→16:34)
[2018-09-20] MEDS ORDERED: MAGNESIUM OXIDE 400 MG TAB PO ONE (07:54)
[2018-09-20] MEDS: predniSONE 20 MG TAB PO SCH (09:33)
--- NOTE | 2018-09-20 10:14 | HOSPPROG ---
Hospitalist Progress Note Assessment/Plan: 83-year-old French-speaking only woman is admitted with increased lower extremity pain and swelling. Her son is the oil well perforator operator. She has had increasing pain in her right foot and ankle. He got to a point where she was no longer able to ambulate independently and is being admitted for further evaluation. She did have a fever last night. Past medical history is significant for carcinoid she is on everolimus daily for chemotherapy. She was recently admitted to [facility] for 3 weeks for a GI bleed secondary to her carcinoid tumor and has only been home for short time. # had right lower extremity pain and swelling. The edema is mild however her foot is warm and red she has tenderness in her ankle joint with movement but apparently is less tender than it was on admission. She did have a fever last night. Possible gout flare versus cellulitis * Check blood cultures * Start on prednisone 20 mg daily for presumed gout and or pseudogout * Will review case with ID to consider treatment for cellulitis * Not immune compromise from her chemotherapy per Oncology. # carcinoid tumor with recent GI bleed and chronic anemia, currently on everolimus will continue while here and monitor her counts. No obvious bleeding at this time. # Dementia: pt not oriented today and has minimal short term recall. # hypertension with diastolic dysfunction, acute exacerbation with increased swelling. Monitor her labs, recent echocardiogram done showing a leaky valve and some diastolic dysfunction. Stable over the last few months. Will not repeat at this time. # chronic kidney disease, stage III acute kidney failure secondary to diuretic use. Improved currently to baseline. Continue to monitor closely # dyslipidemia, on statins # hypokalemia likely related to medications. Continue to monitor will defer potassium protocol given her renal failure but need to monitor this closely. Subjective: Patient new to me and chart reviewed. Patient denies any complaints however her right foot is quite tender to palpation no nausea vomiting, no diarrhea no coughing. Objective: Vital Signs Temp Pulse Resp BP Pulse Ox 38.4 C H 81 20 144/66 H 93 09/20/18 07:47 09/20/18 07:47 09/20/18 07:47 09/20/18 07:47 09/20/18 07:47 Laboratory Results 09/20/18 04:51 09/20/18 04:51 09/19/18 09/20/18 09/21/18 05:59 05:59 05:59 Output Total 450 Balance -450 - Physical Exam Constitutional: chronically ill appearing Eyes: PERRL Ears, Nose, Mouth, Throat: moist mucous membranes Cardiovascular: regular rate and rhythym, systolic murmur, edema Respiratory: no respiratory distress, clear to auscultation Gastrointestinal: soft, non-tender abdomen Genitourinary: no bladder fullness Skin: erythema, other (Erythema warmth over her right foot,) Musculoskeletal: joint tenderness (Right ankle) Neurologic: AAOx3 Psychiatric: interacting appropriately ICD10 Worksheet Patient Problems: Problems Problem Status Onset Carcinoid tumor Acute Gastric outlet obstruction Acute Ileus following gastrointestinal surgery Acute Choledocholithiasis Acute Hypotension Acute Anemia Acute
[2018-09-20] MEDS: ALLOPURINOL 300 MG TAB PO SCH (11:49)
--- NOTE | 2018-09-20 12:12 | ASMTCMCOM ---
CM Note CM Note Notes: Pt admitted to hospital for leg swelling, she lives at home with her son. Normally independent with her ADLs and uses a walker at baseline. PT/OT to eval DC Plan: TBD Date Signed: 09/20/2018 12:11 PM Electronically Signed By:Isabela Dale RN
--- NOTE | 2018-09-20 12:35 | GCON ---
[f rep st] CONSULTATION INFECTIOUS DISEASE CONSULTATION DATE OF CONSULTATION: 09/20/2018 PHYSICIAN REQUESTING CONSULTATION: Yuliet Castro MD REASON FOR CONSULTATION: Left foot pain and fever. Evaluate for possible underlying joint infection versus cellulitis versus gout versus pseudogout. HISTORY OF PRESENT ILLNESS: An 83-year-old woman with a past medical history of carcinoid, status post resection in 2004, severe wadvvxrhd-gk-pguferz hypertension, hyperlipidemia, diastolic dysfunction, multiple valvular abnormalities, chronic renal insufficiency, and recent admissions for GI bleeds , who presented to the emergency room on 09/19/2018 with increased left lower extremity pain. While hospitalized, the patient had a fever to 38.4 at 7:00 a.m. this morning. In addition, on admission the patient's white count was 7.9 with 47% neutrophils and 36% bands. Blood cultures were taken at time of fever and are pending. The patient reports that her left leg pain is improved since admission, but she has most severe pain with movement of her ankle and on the dorsum of her foot. She denies any specific injury. She is unaware of a prior diagnosis of gout, but patient is not oriented to year, location or who the president is. ALLERGIES: No allergies to medications. MEDICATIONS: Current medications include allopurinol 150 daily, hydralazine 50 p.o. three times daily, Zofran as needed, prednisone 20 mg daily, Flomax 0.4 mg daily. She is also intermittently receiving everolimus for her cancer. She last received this September 02, 2018. At that time, she also got 1 unit of blood. PAST MEDICAL HISTORY: Chronic renal insufficiency, anemia of chronic disease, hypertension, carcinoid tumor, CHF, angiodysplasia of the intestines, history of cellulitis. SURGICAL HISTORY: Gastric bypass for carcinoid tumor, cholecystectomy, appendectomy. FAMILY HISTORY: Negative for cancer. SOCIAL HISTORY: She never smoked. No alcohol. She had 4 children. 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 REVIEW OF SYSTEMS: A complete 10-point review of systems was performed and is negative except as mentioned in HPI. PHYSICAL EXAM: VITAL SIGNS: BP 146/64, HR 77, RR 16, saturation 94% on room air. T-max is 38.4, T current 37.4. GENERAL: This is an elderly woman lying in bed, in no acute distress. HEENT: Fair dentition. Moist mucous membranes. No ulcerations or exudates. NECK: Supple. CARDIOVASCULAR: Regular rate and rhythm with a 2/6 systolic murmur. CHEST: Clear to auscultation bilaterally. ABDOMEN: Scaphoid, soft, nontender. Bowel sounds are present. Well-healed surgical scars. EXTREMITIES: Her left lower extremity had erythema on the anterior aspect of her lower ankle/rizzo and dorsum of her foot, as well as ankle swelling including the medial and lateral malleolus, with very remarkable tenderness to palpation of this area, as well as with range of motion of the foot. Dorsalis pedis pulses were intact bilaterally. She had normal capillary refill. It was notable that she had warmth associated with this left ankle. No skin breakdown was noted. LABORATORY: Initial white count on admission as per HPI. Today, white count 5.9, hematocrit 27, platelets of 192, 75 % neutrophils, 12% lymphocytes. Creatinine 1.8. Blood cultures were collected today. No past pertinent microbiology. IMAGING: Patient had a DVT study of her left lower extremity that was negative. ASSESSMENT AND PLAN: An 83-year-old woman with carcinoid, on intermittent everolimus, who presents with acute onset of left foot and ankle pain, with exam findings of warmth, mild erythema and extreme tenderness to range of motion of the left ankle. Most likely etiology is gout versus pseudogout, but also could consider septic arthritis and/or cellulitis. At this point, agree with initial approach to treating with prednisone, and will continue to follow clinically to assess for need for possible joint aspiration and/or initiation of antibiotic therapy. Due to patient's stable hemodynamics, reasonable to continue to monitor off antibiotic therapy. Thank you for this consultation. We will continue to see the patient on a daily basis. Greater than 50 minutes spent on this patients care, greater than 50% of time spent counseling, educating, and coordinating care regarding the above mentioned plan. /[id number]/MODL MTDD
--- NOTE | 2018-09-20 12:37 | PDMN ---
Medical Necessity Medical necessity: Change to IP, as of 09/19/18, per & MCG M-190; los >2 mn for ongoing management of acute on chronic diastolic CHF w/LE edema, inability to ambulate, electrolyte abnormalities & acute on chronic kidney disease; admit for further monitoring, med management & therapies; comorbid advanced age, CKD, carcinoid tumor, anemia
[2018-09-20] MEDS: SODIUM BICARBONATE 650 MG TAB PO SCH ×2 (16:20→21:25)
[2018-09-20] MEDS ORDERED: PROTOCOL CALCIUM 1 DOSE IV PRN (16:33)
[2018-09-20] MEDS ORDERED: MAGNESIUM SULF 1 GM/DEXTROSE 100 ML IV ONE ×2 (16:35→18:00)
[2018-09-21 05:08] LABS: PLATELET COUNT 174 10^3/uL (150-400)
[2018-09-21] MEDS ORDERED: CALCIUM GLUCONATE 50 ML IV ONE (08:40)
[2018-09-21] MEDS: ALLOPURINOL 300 MG TAB PO SCH (09:17)
[2018-09-21] MEDS: TAMSULOSIN HCL 0.4 MG CAP PO SCH (09:17)
[2018-09-21] MEDS: SODIUM BICARBONATE 650 MG TAB PO SCH ×3 (09:17→21:00)
[2018-09-21] MEDS: predniSONE 20 MG TAB PO SCH (09:18)
--- NOTE | 2018-09-21 10:58 | HOSPPROG ---
Hospitalist Progress Note Assessment/Plan: 83-year-old Yoruba-speaking only woman is admitted with increased lower extremity pain and swelling. She has had increasing pain in her right foot and ankle. It got to a point where she was no longer able to ambulate independently and is being admitted for further evaluation. She did have a fever after admission. Past medical history is significant for carcinoid she is on everolimus daily for chemotherapy. She was recently admitted to [facility] for 3 weeks for a GI bleed secondary to her carcinoid tumor and has only been home for short time. # had right lower extremity pain and swelling. The edema is mild however her foot is warm and red she has tenderness in her ankle joint with movement but apparently is less tender than it was on admission. She has been on prednisone with improvement in her ankle pain but it is wharf tender head with ROM. Her foot looks the same but less tender. * Check blood cultures, pending. * Start on prednisone 20 mg daily for presumed gout and or pseudogout * Consider IR guided tap to confirm gout/pseudogout if not improving significantly, currently seems to be better # carcinoid tumor with recent GI bleed and chronic anemia, currently on everolimus will continue while here and monitor her counts. No obvious bleeding at this time. Slight drop in anemia, will continue to follow. # Dementia: pt not oriented today and has minimal short term recall. # hypertension with diastolic dysfunction, acute exacerbation with increased swelling. Monitor her labs, recent echocardiogram done showing a leaky valve and some diastolic dysfunction. Stable over the last few months. Will not repeat at this time. # chronic kidney disease, stage III acute kidney failure secondary to diuretic use. Improved currently to baseline. Continue to monitor closely # dyslipidemia, on statins # pulmonary HTN: with RVSP of 52 on recent ECHO. Has normal LV function, MR, AI, TR. * diuresis as creatinine tolerates. # hypokalemia likely related to medications. Continue to monitor will defer potassium protocol given her renal failure but need to monitor this closely. dispo: Pt will need SNF rehab on discharge and son likes [facility], Unable to call son today, I did talk with him yesterday. If blood cultures negative and ongoing improvement in ankle then can DC to SNF in a day or 2. Subjective: Significant short-term memory loss is really only oriented to her name and can even tell me who she lives with. She does state her ankle feels better than yesterday, I am not sure how reliable that is. Objective: Vital Signs Temp Pulse Resp BP Pulse Ox 37.2 C 71 14 147/55 H 95 09/21/18 07:48 09/21/18 07:48 09/21/18 07:48 09/21/18 07:48 09/21/18 07:48 Laboratory Results 09/21/18 04:48 09/21/18 04:48 09/20/18 09/21/18 09/22/18 05:59 05:59 05:59 Intake Total 1480 Output Total 450 600 Balance -450 880 - Physical Exam Constitutional: no apparent distress Eyes: PERRL, anicteric sclera Ears, Nose, Mouth, Throat: moist mucous membranes Cardiovascular: regular rate and rhythym, systolic murmur, edema (Right greater than left at 1+) Respiratory: no respiratory distress, clear to auscultation Gastrointestinal: soft, non-tender abdomen Genitourinary: no bladder fullness Skin: erythema (Dorsum of her right foot) Musculoskeletal: generalized weakness Neurologic: No AAOx3 Psychiatric: encephalopathic, poor memory ICD10 Worksheet Patient Problems: Problems Problem Status Onset Carcinoid tumor Acute Gastric outlet obstruction Acute Ileus following gastrointestinal surgery Acute Choledocholithiasis Acute Hypotension Acute Anemia Acute
--- NOTE | 2018-09-21 14:02 | PCMIDPN ---
Assessment/Plan: # R ankle/foot pain and mild erythema: slightly improved today, less pain with movement of the ankle. Seems most c/w pseudogout, gout --could consider tapping ankle for definitive dx --at this point would keep Rx for gout/pseudogout --monitor blood cultures Patient examined with junior automation engineer Subjective: patient states foot pain better, less improvement in ankle pain but still improved. Objective: Vital Signs Temp Pulse Resp BP Pulse Ox 36.6 C 71 16 158/70 H 96 09/21/18 11:20 09/21/18 11:20 09/21/18 11:20 09/21/18 11:20 09/21/18 11:20 Laboratory Results 09/21/18 04:48 09/21/18 04:48 09/20/18 09/21/18 09/22/18 05:59 05:59 05:59 Intake Total 1480 Output Total 450 600 Balance -450 880 - Physical Exam General Appearance: alert, no apparent distress, thin, non-toxic Respiratory: No accessory muscle use Extremities: other (R ankle swelling, slight limited ROM, faint erythema over dorsum of foot, warmth but significantly improved compared to yesterday), No pedal edema Skin: No rash Neuro/Psych: alert, other (cooperative) ICD10 Worksheet Patient Problems: Problems Problem Status Onset Anemia Acute Carcinoid tumor Acute Choledocholithiasis Acute Gastric outlet obstruction Acute Hypotension Acute Ileus following gastrointestinal surgery Acute
--- NOTE | 2018-09-21 16:26 | ASMTCMCOM ---
CM Note CM Note Notes: Spoke with pt's son on the phone. Therapies are recommending SNF, and son has requested referral sent to [facility] as he lives nearby. Son hoping to speak with MD today regarding pt's treatment. CM explained that short term rehab is covered by Medicare. CM to follow. D/C Plan: [facility] pending acceptance. Date Signed: 09/21/2018 04:26 PM Electronically Signed By:Shala Bruner
[2018-09-22 04:56] LABS: PLATELET COUNT 174 10^3/uL (150-400)
[2018-09-22] MEDS ORDERED: CALCIUM GLUCONATE 50 ML IV ONE (08:16)
--- NOTE | 2018-09-22 09:03 | HOSPPROG ---
Hospitalist Progress Note Assessment/Plan: # R foot gout/pseudogout - less c/w infection at this time but certainly a consideration - fever noted - may be d/t gout - cont prednisone, allop - will d/w ID # diastolic dysfunction - volume status difficult; wt up but does not appear volume overloaded - will not institute diuretics today - follow weight and IO # pulmonary HTN: with RVSP of 52 on recent ECHO. Has normal LV function, MR, AI, TR. - diuresis as creatinine tolerates # htn - will start amlodipine 2.5mg today in addition to hydral 50 TID - reported sensitivity to anti-htn's # HLD - statin # CKD - BUN/SCr rising; has not been on diuretics - recheck tomorrow - cont Na-bicarb # carcinoid tumor - afinitor and octreotide # recent GIB - d/t small bowel AVMs or possible small bowel carcinoid; - recent EGD and colonoscopy with multiple AVMs, treated with argon plasma coagulation - elevated BUN notes, but also note elevated SCr # dementia - oriented to self Subjective: seen with microwave radio technician. foot feels better, minimal pain. RN reports unsteady ambulation Objective: Vital Signs Temp Pulse Resp BP Pulse Ox 36.8 C 71 16 150/63 H 95 09/22/18 07:27 09/22/18 07:27 09/22/18 07:27 09/22/18 07:27 09/22/18 07:27 Laboratory Results 09/22/18 04:45 09/22/18 04:45 09/21/18 09/22/18 09/23/18 05:59 05:59 05:59 Intake Total 1480 1910 Output Total 600 300 Balance 880 1610 chart reviewed CXR personally reviewed - Physical Exam Constitutional: no apparent distress, appears nourished Cardiovascular: regular rate and rhythym, systolic murmur, No irregularly irregular, No diastolic murmur Respiratory: no respiratory distress, no rales or rhonchi, clear to auscultation Gastrointestinal: soft, non-tender abdomen, no palpable masses, No guarding, No rebound Musculoskeletal: other (R foot with some erythema, ankle joint effusion) ICD10 Worksheet Patient Problems: Problems Problem Status Onset Carcinoid tumor Acute Gastric outlet obstruction Acute Ileus following gastrointestinal surgery Acute Choledocholithiasis Acute Hypotension Acute Anemia Acute
[2018-09-22] MEDS: ALLOPURINOL 300 MG TAB PO SCH (09:20)
[2018-09-22] MEDS: TAMSULOSIN HCL 0.4 MG CAP PO SCH (09:20)
[2018-09-22] MEDS: predniSONE 20 MG TAB PO SCH (09:21)
[2018-09-22] MEDS: SODIUM BICARBONATE 650 MG TAB PO SCH ×3 (09:21→21:03)
[2018-09-22] MEDS: FUROSEMIDE 20 MG TAB PO SCH (10:38)
[2018-09-22] MEDS: METOPROLOL SUCCINATE XR 25 MG TAB PO SCH (11:39)
--- NOTE | 2018-09-22 13:45 | PCMIDPN ---
Assessment/Plan: Assessment: 83-year-old woman with probable acute gout flare involving the left ankle. Overall she has improved with prednisone therapy with no suggestion of underlying infection, which would be expected to worsen in the setting of corticosteroid use. 1. Probable acute gout involving the left ankle joint, improved 2. Chronic kidney disease 3. History of gout 4. Acute kidney injury present on admission, improved Plan: 1. Continue monitoring without systemic antibiotics Mohit Morales MD Infectious Diseases 09/22/18 13:47 Subjective: No objective fevers. Overall the pain in the left ankle is improved. Objective: Vital Signs Temp Pulse Resp BP Pulse Ox 36.8 C 76 16 173/70 H 95 09/22/18 11:29 09/22/18 11:29 09/22/18 11:29 09/22/18 11:29 09/22/18 11:29 Laboratory Results 09/22/18 04:45 09/22/18 04:45 09/21/18 09/22/18 09/23/18 05:59 05:59 05:59 Intake Total 1480 1910 500 Output Total 600 300 300 Balance 880 1610 200 Medications Generic Name Dose Route Start Last Admin Trade Name Freq PRN Reason Stop Dose Admin Prednisone 20 mg 09/20/18 09:30 09/22/18 09:21 Prednisone PO 03/19/19 09:29 20 mg DAILY FERMIN Microbiology 09/20/18 09:10 Blood Blood Culture - Preliminary 09/20/18 09:00 Blood Blood Culture - Preliminary Laboratory Tests 09/19/18 09/21/18 09/22/18 22:30 04:48 04:45 WBC 7.92 5.49 Hgb 10.2 L 8.6 L Plt Count 193 174 Creatinine 2.0 H 09/22/18 04:45 WBC Hgb Plt Count Creatinine 2.1 H - Physical Exam General Appearance: no apparent distress, non-toxic EENT: No scleral icterus Respiratory: No respiratory distress, No accessory muscle use Neck: full range of motion, supple Extremities: other (Left ankle and dorsum of the foot with faint erythema, minimal tenderness to palpation about the ankle joint itself in over the dorsum of the foot, no areas of fluctuance or induration) Neuro/Psych: alert, normal mood/affect, No confused ICD10 Worksheet Patient Problems: Problems Problem Status Onset Anemia Acute Carcinoid tumor Acute Choledocholithiasis Acute Gastric outlet obstruction Acute Hypotension Acute Ileus following gastrointestinal surgery Acute
--- NOTE | 2018-09-22 14:40 | ASMTCMCOM ---
CM Note CM Note Notes: PT/OT have cleared patient to go home with home care. I met w her son, Alex, and he agrees w the plan. [facility] can accept for PT/OT. Hospitalist notifed. Current CM Discharge plan: home w [facility] PT/OT Date Signed: 09/22/2018 02:39 PM Electronically Signed By:Katya Conklin RN
--- NOTE | 2018-09-22 17:07 | SOAPPROG ---
DENIS Progress Note Assessment/Plan: Assessment: Heme/Onc f/u - Metastatic carcinoid - she is currently maintained on lanreotide and everolimus. Her next follow up with Dr. Barrett is scheduled for 30 SEP 2018. She will be due for her next injection of lanreotide then. Her current dose of everolimus is 7.5mg/day. - Iron deficiency anemia - due to GI blood loss due to AVMs. Usual Hgb is about 10. MCV is normal. Hgb in 8 range may be dilutional. Will follow without transfusion for now. - Chronic renal insufficiency - usual creatinine is 1.9 - 2.1 over the past few months. She is not too far from baseline at this time. Plan: - Agree with care of pseudogout/renal insufficiency per hospital service - Continue everolimus at current dose - F/U with Dr. Barrett on 30 September 2018 as planned for re-eval of carcinoid and for her next injection of lanreotide - Will follow with you. Subjective: Patient can walk better per her son who is at the bedside. Objective: Vital Signs Temp Pulse Resp BP Pulse Ox 36.8 C 66 16 151/62 H 94 09/22/18 15:10 09/22/18 15:10 09/22/18 15:10 09/22/18 15:10 09/22/18 15:10 Laboratory Results 09/22/18 04:45 09/22/18 04:45 09/20/18 09/21/18 09/22/18 23:59 23:59 23:59 Intake Total 860 2180 850 Output Total 550 500 600 Balance 310 1680 250 Physical Exam - Physical Exam General Appearance: no apparent distress Skin: pallor Neuro/Psych: alert ICD10 Worksheet Patient Problems: Problems Problem Status Onset Anemia Acute Carcinoid tumor Acute Choledocholithiasis Acute Gastric outlet obstruction Acute Hypotension Acute Ileus following gastrointestinal surgery Acute
[2018-09-23 06:02] LABS: PLATELET COUNT 176 10^3/uL (150-400)
[2018-09-23] MEDS: FUROSEMIDE 20 MG TAB PO SCH (08:17)
[2018-09-23] MEDS: SODIUM BICARBONATE 650 MG TAB PO SCH (08:18)
[2018-09-23] MEDS: TAMSULOSIN HCL 0.4 MG CAP PO SCH (08:18)
[2018-09-23] MEDS: ALLOPURINOL 300 MG TAB PO SCH (08:19)
[2018-09-23] MEDS: predniSONE 20 MG TAB PO SCH (08:20)
--- NOTE | 2018-09-23 09:24 | PCMIDPN ---
Assessment/Plan: 1. Right lower extremity foot/ankle swelling: Markedly improved with prednisone. Symptoms likely all due to gout. (which he has a history of) Interestingly, it appears that Everolimus can exacerbate this disease process. 2. Tinea pedis: Start Lotrimin twice daily. Explained to her this is a risk factor for cellulitis moving forward. Subjective: Conversed with patient in Icelandic. She is feeling much better. States that her right lower extremity is significantly less swollen. Able to rotate her ankle with ease. Objective: Prednisone Allopurinol T-max 37.3 degrees Vital Signs Temp Pulse Resp BP Pulse Ox 36.8 C 61 16 147/83 H 95 09/23/18 07:41 09/23/18 07:41 09/23/18 07:41 09/23/18 07:41 09/23/18 07:41 Laboratory Results 09/23/18 05:45 09/23/18 05:45 09/22/18 09/23/18 09/24/18 05:59 05:59 05:59 Intake Total 1910 1015 Output Total 300 2450 400 Balance 1610 -1435 -400 Blood cultures negative - Physical Exam General Appearance: other (Elderly female, nontoxic, sitting up in bed) EENT: No thrush Extremities: other (Right lower extremity: Minimal puffiness along the foot dorsum, with pinkish erythema of the foot that extends up around the ankle area , barely visible. She is able to rotate her ankle with ease.) Skin: other (Some skin maceration noted in the web spaces between the 2nd and 3rd toes right foot) ICD10 Worksheet Patient Problems: Problems Problem Status Onset Anemia Acute Carcinoid tumor Acute Choledocholithiasis Acute Gastric outlet obstruction Acute Hypotension Acute Ileus following gastrointestinal surgery Acute
[2018-09-23] MEDS ORDERED: CLOTRIMAZOLE 1% 15 GM CRTUBE TP SCH (09:30)
--- NOTE | 2018-09-23 10:04 | PDIAF ---
- Diagnosis Diagnosis: Gout Code Status: Full Code - Medication Management Discharge Medications: electronically signed and located in the Home Medication List. - Orders Services needed: Home Care, Registered Nurse, Certified Matcher [employer], Physical Therapy, Occupational Therapy Home Care Face to Face: I certify that this patient was under my care and that I had the required [id number] encounter meeting the encounter requirements on the discharge day. My findings support the fact that the patient is homebound as defined in Home Care Face to Face Continued: CMS Chapter 7 Medicare Benefits Manual 30.1.1 , The condition of the patient is such that there exists a normal inability to leave home and consequently, leaving home would require a considerable and taxing effort. Isolation Type: Chemotherapy Isolation Diet Texture: Regular Texture Diet - Follow Up Care Current Providers and Referrals: Joe Barrett MD [Primary Care Provider] - As per Instructions Pearl Dawn PA [Physician Online Content Editor] -
--- NOTE | 2018-09-23 10:12 | ASMTDCNOTE ---
Case Management Discharge Discharge Order Complete? Answers: Yes Patient to Obtain Answers: via Family Medications Transportation Arranged Answers: Family/Friends Transport will Pick (Date 09/23/2018 12:00 AM & Time) Faxed Final Orders Answers: Yes Agency/Facility Transfer Answers: Yes Report Printed & Faxed to Receiving Agency Family Notified Answers: Yes Notes: by CM and hospitalist Discharge Comments Notes: Spoke with son Alex on the phone, confirmed address and phone in [employer] and confirmed that oncologist Dr. Joe Barrett is acting as pt's PCP at this time. [facility] PT/OT/RN to follow pt per recommendation. [facility] notified of change in plan. No further CM needs noted at this time. D/C Plan: Home with son and [facility] RN/PT/OT Date Signed: 09/23/2018 10:11 AM Electronically Signed By:Shala Bruner
--- NOTE | 2018-09-23 10:13 | ASMTLACE ---
LACE Length of stay for Answers: 4-6 days current admission Acuity / Level of Answers: Yes Care: Did the patient have an inpatient admission? Comorbidities - select Answers: Any tumor (including all that apply lymphoma or leukemia) Moderate or severe liver or renal disease Other Notes: HTN # of Emergency department Answers: 1-2 visits in the last 6 months Score: 15 Date Signed: 09/23/2018 10:12 AM Electronically Signed By:Shala Bruner
--- NOTE | 2018-09-23 10:37 | ASMTCMCOM ---
CM Note CM Note Notes: ADDENDUM: CCHA given pt's name and son's number for follow up. Date Signed: 09/23/2018 10:37 AM Electronically Signed By:Shala Bruner
[2018-09-23 11:30] VITALS: BP 144/98
--- NOTE | 2018-09-23 11:34 | GDS ---
[f rep st] DISCHARGE SUMMARY ALL DIAGNOSES: 1. Right foot gout. 2. Diastolic dysfunction. 3. Pulmonary hypertension. 4. Hypertension. 5. Hyperlipidemia. 6. Chronic kidney disease. 7. Carcinoid tumor. 8. Recent gastrointestinal bleed. 9. Anemia. 10. Dementia. 11. Tinea pedis. HOSPITAL COURSE: This is an 83-year-old female who was admitted with significant right foot erythema and edema. Initially concern for cellulitis, however, after consultation with Infectious Disease this appeared to be more consistent with a gout attack. Apparently everolimus may precipitate gout attacks. She has been started on prednisone with significant clinical improvement. She is ambulating at this point. She has not received any antibiotics. She will be discharged with a taper of steroids over the next 8 days. I have given her 15 mg for 4 days and then 10 mg for 4 days. She is ordered to receive 4 days of 20 mg here. Her volume status is very difficult given her diastolic dysfunction. She does not appear to be volume overloaded. I have kept her on her home medications including Toprol 50 mg, hydralazine 50 mg t.i.d., Lasix 10 mg daily, amlodipine 10 mg at bedtime. Her creatinine is approximately at its baseline of 2.0. I started her on potassium supplementation, as her potassium was low when she was admitted. She should follow up with Pearl in Cardiology for ongoing management of her heart. She had a significant recent GI bleed which was felt to be due to either small bowel carcinoid or AVMs. This was at [facility]. Her hemoglobin has been stable here, although slightly low. It is currently 8.3. It has been in this range for the past 2 days. She was seen by Oncology, who recommends continuing her octreotide and Afinitor for her carcinoid tumor. She has a followup with Dr. Barrett in 6 days. DISPOSITION: She is discharged to home with home care in stable condition. She lives with her son. BILLING: I spent more than 30 minutes on the day of discharge coordinating care. /[id number]/MODL MTDD
[2018-09-23] MEDS: METOPROLOL SUCCINATE XR 25 MG TAB PO SCH (12:36)
--- NOTE | 2018-09-23 13:53 | ASDISCHSUM ---
Discharge Information Plan Status:Home with Home Health Medically Cleared to Leave:09/23/2018 Discharge Date:09/23/2018 01:09 PM D/C Disposition:Home Health Service ADT D/C Disposition:Home Health Service Projected Discharge Date:09/23/2018 11:00 AM Transportation at D/C:Family Discharge Delay Reason: Follow-Up Date:09/23/2018 11:00 AM Discharge Slot: Final Diagnosis:CHF, edema Placement Information Referral Type:*Long-Term/SNF Referral ID:[id number] Provider Name: Address 1: Phone Number: Address 2: Fax Number: City: Selection Factors: State: Referral Type:*Home Health Care Services Referral ID:[id number] Provider Name:[facility] Address 1:[address] [facility] [address] Address 2: City:[place] Selection Factors: State:[place] Patient Contact Information Contact Name:MARILIN Relationship:Son Address:[address] Work Phone: City:[place] Phone: State/Zip Code:[place] [address] Email: Financial Information Financial Class:Medicare Primary Plan Desc:MEDICARE IP PART B ONLY Primary Plan Number:[id number] Secondary Plan Desc:[place] Secondary Plan Number:[id number] Assessment Information LACE LACE Length of stay for Answers: 4-6 days current admission Acuity / Level of Answers: Yes Care: Did the patient have an inpatient admission? Comorbidities - select Answers: Any tumor (including all that apply lymphoma or leukemia) Moderate or severe liver or renal disease Other Notes: HTN # of Emergency department Answers: 1-2 visits in the last 6 months Score: 15 Date Signed: 09/23/2018 10:12 AM Electronically Signed By:Shala Bruner [facility] CM Progress Note CM Note CM Note Notes: Pt admitted to hospital for leg swelling, she lives at home with her son. Normally independent with her ADLs and uses a walker at baseline. PT/OT to eval DC Plan: TBD Date Signed: 09/20/2018 12:11 PM Electronically Signed By:Isabela aDle RN [facility] CM Progress Note CM Note CM Note Notes: Spoke with pt's son on the phone. Therapies are recommending SNF, and son has requested referral sent to [facility] as he lives nearby. Son hoping to speak with MD today regarding pt's treatment. CM explained that short term rehab is covered by Medicare. CM to follow. D/C Plan: [facility] pending acceptance. Date Signed: 09/21/2018 04:26 PM Electronically Signed By:Shala Bruner [facility] CM Progress Note CM Note CM Note Notes: PT/OT have cleared patient to go home with home care. I met w her son, Alex, and he agrees w the plan. [facility]. Hospitalist notifed. Current CM Discharge plan: home w [facility] PT/OT Date Signed: 09/22/2018 02:39 PM Electronically Signed By:Katya Conklin RN Case Management Discharge Plan Note Case Management Discharge Discharge Order Complete? Answers: Yes Patient to Obtain Answers: via Family Medications Transportation Arranged Answers: Family/Friends Transport will Pick (Date 09/23/2018 12:00 AM & Time) Faxed Final Orders Answers: Yes Agency/Facility Transfer Answers: Yes Report Printed & Faxed to Receiving Agency Family Notified Answers: Yes Notes: by CM and hospitalist Discharge Comments Notes: Spoke with rosa isela Johnson on the phone, confirmed address and phone in [place] and confirmed that oncologist Dr. Joe Barrett is acting as pt's PCP at this time. [facility] PT/OT/RN to follow pt per recommendation. [facility] notified of change in plan. No further CM needs noted at this time. D/C Plan: Home with son and [facility] RN/PT/OT Date Signed: 09/23/2018 10:11 AM Electronically Signed By:Shala Bruner [facility] CM Progress Note CM Note CM Note Notes: [facility] son's number for follow up. Date Signed: 09/23/2018 10:37 AM Electronically Signed By:Shala Bruner Intervention Information
== END 2018-09-23 13:09 | disposition home health service (06) | DRG 554 ==
LOC: F3E 22:57 → OBSVTOIN 23:50
PROVIDERS: ADMIT Internal Medicine; ATTEND Student in an Organized Health Care Education/Training Program
DX: M10.9 Gout, unspecified (principal); I13.0 Hypertensive heart and chronic kidney disease with heart failure and stage 1 through stage 4 chronic kidney disease, or unspecified chronic kidney disease; I50.30 Unspecified diastolic (congestive) heart failure; N18.3 Chronic kidney disease, stage 3 (moderate); N17.9 Acute kidney failure, unspecified; B35.3 Tinea pedis; E87.6 Hypokalemia; E78.5 Hyperlipidemia, unspecified; C7A.00 Malignant carcinoid tumor of unspecified site; R50.9 Fever, unspecified; D50.0 Iron deficiency anemia secondary to blood loss (chronic); F03.90 Unspecified dementia, unspecified severity, without behavioral disturbance, psychotic disturbance, mood disturbance, and anxiety; I27.20 Pulmonary hypertension, unspecified; I34.0 Nonrheumatic mitral (valve) insufficiency; Z87.440 Personal history of urinary (tract) infections; Z98.0 Intestinal bypass and anastomosis status
CPT/HCPCS: 82397-90; 97116-GP; 97161-GP; 97165-GO; 97530-GO; J0610; J3475; J7512

== ENCOUNTER 2018-10-01 10:42 | Inpatient (IN) | payer OTHER, MEDICAID ==
[2018-10-01 11:43] LABS: PLATELET COUNT 195 10^3/uL (150-400)
[2018-10-01 11:45] LABS: INR 1.05 (0.83-1.16); PROTIME(PATIENT) 13.3 SEC (12.0-15.0)
--- NOTE | 2018-10-01 11:47 | EDPHY ---
H & P Time Seen by Provider: 10/01/18 10:47 HPI/ROS: Chief complaint. Bloody stool, palpitations HPI. Patient is an 83-year-old female with multiple episodes of bloody stool this morning. She was scheduled for 2 units of blood today because of anemia. However when she was seen for her blood transfusion when told about the bloody stool she was sent to the emergency department. She almost fainted today. She had increased heart rate and palpitations with standing. Her symptoms are better with lying down. She really has no abdominal pain. No nausea vomiting. 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 She has been on prednisone until yesterday for gout. Her hemoglobin yesterday was 7.7. No chest pain or shortness of breath ROS 10 systems were reviewed and negative with the exception of the elements mentioned in the history of present illness Past Medical/Surgical History: Pulmonary hypertension, dyslipidemia, chronic kidney disease, GI bleed, dementia , anemia, leaky heart valve, congestive heart failure Social History: Nonsmoker, no alcohol Smoking Status: Never smoked Physical Exam: General Appearance: Alert well-developed female mild distress vital signs are stable Eyes: Pupils equal and round no pallor or injection. ENT, Mouth: Mucous membranes are moist. Respiratory: There are no retractions, lungs are clear to auscultation. Cardiovascular: Regular rate and rhythm. Gastrointestinal: Abdomen is soft and nontender, no masses, bowel sounds normal. Rectal exam shows dark brown stool Neurological: Awake and alert, sensory and motor exams grossly normal. Skin: Warm and dry, no rashes. Musculoskeletal: Neck is supple nontender. Extremities symmetrical, full range of motion. Psychiatric: Patient is oriented X 3, there is no agitation. Constitutional: Initial Vital Signs Temperature (C) 36.6 C 10/01/18 10:44 Heart Rate 78 10/01/18 10:44 Respiratory Rate 16 10/01/18 10:44 Blood Pressure 128/56 H 10/01/18 10:44 O2 Sat (%) 98 10/01/18 10:44 O2 Delivery Mode Room Air Allergies/Adverse Reactions: cyanocobalamin (vitamin B12) Allergy (Unknown, Verified 07/15/18 12:26) thiamine (vitamin B1) Allergy (Unknown, Verified 07/15/18 12:26) labetalol Allergy (Verified 07/15/18 12:26) Other-Enter Comments Home Medications: Medication Instructions Recorded Multivitamins [Multivitamin (*)] 1 each PO DAILY 09/15/16 Allopurinol [Allopurinol 300 MG 150 mg PO DAILY 12/18/17 (RX)] Cholecalciferol Vit D3 [Vitamin D3 1,000 units PO HS 07/15/18 (*)] Furosemide [Lasix 20 MG (*)] 10 - 20 mg PO DAILY 07/15/18 Hydralazine HCl 50 mg PO TID 07/15/18 Metoprolol Succinate Xr [Toprol Xl 50 mg PO DAILY@12 07/15/18 50 mg (*)] Sodium Bicarbonate [Na Bicarb] 650 mg PO DAILY@07/15/18 Tamsulosin HCl [Flomax 0.4 MG (*)] 0.4 mg PO DAILY 07/15/18 amLODIPine BESYLATE [Norvasc 10 mg 10 mg PO DAILY 09/19/18 (*)] Everolimus [Afinitor] 7.5 mg PO DAILY 09/20/18 Clotrimazole 1% [Lotrimin 1%] 1 narda TP BID cream 09/23/18 Potassium Cl [Klor-Con] 10 meq PO DAILY@10/01/18 Medical Decision Making - Diagnostics EKG Interpretation: EKG interpreted by me shows normal sinus rhythm normal interval and axis. QRS is normal there is no significant ST elevation or depression. No arrhythmia. The rate is 60 Procedures: IV normal saline. Type and cross for 2 units of packed red blood cells. ED Course/Re-evaluation: Patient's hemoglobin today is 5.9 and yesterday was 7.7. She has heme-positive stool. Patient and her son and I discussed laboratory evaluation, treatment plan including recommendation for admission. They expressed understanding and agreement I consulted discussed the case with Dr. Santizo, hospitalist, who agrees to the admission I also consulted discussed case with Dr. Ybarra for GI who will see the patient in consultation. He agrees with treatment so far Differential Diagnosis: GI bleed with bright red blood earlier and now heme-positive stool. 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 Significant drop in hemoglobin since yesterday. Recent prednisone which may have exacerbated any type of gastric irritation or peptic ulcer - Data Points Laboratory Results: Laboratory Results 10/01/18 11:12 10/01/18 11:12 10/01/18 10/01/18 10/01/18 11:40 11:34 11:12 WBC RBC Hgb Hct MCV MCH MCHC RDW Plt Count MPV Neut % (Auto) Lymph % (Auto) Dunn % (Auto) Eos % (Auto) Baso % (Auto) Nucleat RBC Rel Count Absolute Neuts (auto) Absolute Lymphs (auto) Absolute Monos (auto) Absolute Eos (auto) Absolute Basos (auto) Absolute Nucleated RBC Immature Gran % Immature Gran # RBC/WBC/PLT Morphology Platelet Estimate Polychromasia Hypochromasia Smear Review By PT INR APTT Sodium Potassium Chloride Carbon Dioxide Anion Gap BUN Creatinine Estimated GFR Glucose Calcium Total Bilirubin Conjugated Bilirubin Unconjugated Bilirubin AST ALT Alkaline Phosphatase POC Troponin I 0.03 ng/mL ng/mL (0.00-0.08) NT-Pro-B Natriuret Pep 3880 pg/mL H pg/mL (0-450) Total Protein Albumin Lipase Stool Occult Bld Scrn POSITIVE H (NEGATIVE) Patient ABO/Rh Antibody Screen Crossmatch IS Only 10/01/18 10/01/18 10/01/18 11:12 11:12 11:12 WBC 4.95 10^3/uL 10^3/uL (3.80-9.50) RBC 1.98 10^6/uL L 10^6/uL (4.18-5.33) Hgb 5.9 g/dL L* g/dL (12.6-16.3) Hct 18.3 % L % (38.0-47.0) MCV 92.4 fL fL (81.5-99.8) MCH 29.8 pg pg (27.9-34.1) MCHC 32.2 g/dL L g/dL (32.4-36.7) RDW 17.2 % H % (11.5-15.2) Plt Count 195 10^3/uL 10^3/uL (150-400) MPV 9.3 fL fL (8.7-11.7) Neut % (Auto) 78.6 % H % (39.3-74.2) Lymph % (Auto) 11.1 % L % (15.0-45.0) Dunn % (Auto) 8.7 % % (4.5-13.0) Eos % (Auto) 0.2 % L % (0.6-7.6) Baso % (Auto) 0.0 % L % (0.3-1.7) Nucleat RBC Rel Count 0.0 % % (0.0-0.2) Absolute Neuts (auto) 3.89 10^3/uL 10^3/uL (1.70-6.50) Absolute Lymphs (auto) 0.55 10^3/uL L 10^3/uL (1.00-3.00) Absolute Monos (auto) 0.43 10^3/uL 10^3/uL (0.30-0.80) Absolute Eos (auto) 0.01 10^3/uL L 10^3/uL (0.03-0.40) Absolute Basos (auto) 0.00 10^3/uL L 10^3/uL (0.02-0.10) Absolute Nucleated RBC 0.00 10^3/uL 10^3/uL (0-0.01) Immature Gran % 1.4 % H % (0.0-1.1) Immature Gran # 0.07 10^3/uL 10^3/uL (0.00-0.10) RBC/WBC/PLT Morphology TNP Platelet Estimate ADEQUATE (ADEQ) Polychromasia 1+ H Hypochromasia 1+ H Smear Review By Pending PT 13.3 SEC SEC (12.0-15.0) INR 1.05 (0.83-1.16) APTT 21.6 SEC L SEC (23.0-38.0) Sodium 138 mEq/L mEq/L (135-145) Potassium 4.2 mEq/L mEq/L (3.5-5.2) Chloride 109 mEq/L mEq/L (97-110) Carbon Dioxide 20 mEq/l L mEq/l (22-31) Anion Gap 9 mEq/L mEq/L (6-14) BUN 49 mg/dL H mg/dL (7-23) Creatinine 1.8 mg/dL H mg/dL (0.6-1.0) Estimated GFR 27 Glucose 92 mg/dL mg/dL (70-100) Calcium 7.6 mg/dL L mg/dL (8.5-10.4) Total Bilirubin 0.3 mg/dL mg/dL (0.1-1.4) Conjugated Bilirubin 0.3 mg/dL mg/dL (0.0-0.5) Unconjugated Bilirubin 0.0 mg/dL mg/dL (0.0-1.1) AST 27 IU/L IU/L (14-46) ALT 35 IU/L IU/L (9-52) Alkaline Phosphatase 47 IU/L IU/L (38-126) POC Troponin I NT-Pro-B Natriuret Pep Total Protein 5.1 g/dL L g/dL (6.3-8.2) Albumin 3.1 g/dL L g/dL (3.5-5.0) Lipase 103 IU/L IU/L (23-300) Stool Occult Bld Scrn Patient ABO/Rh Antibody Screen Crossmatch IS Only 09/30/18 16:30 WBC RBC Hgb Hct MCV MCH MCHC RDW Plt Count MPV Neut % (Auto) Lymph % (Auto) Dunn % (Auto) Eos % (Auto) Baso % (Auto) Nucleat RBC Rel Count Absolute Neuts (auto) Absolute Lymphs (auto) Absolute Monos (auto) Absolute Eos (auto) Absolute Basos (auto) Absolute Nucleated RBC Immature Gran % Immature Gran # RBC/WBC/PLT Morphology Platelet Estimate Polychromasia Hypochromasia Smear Review By PT INR APTT Sodium Potassium Chloride Carbon Dioxide Anion Gap BUN Creatinine Estimated GFR Glucose Calcium Total Bilirubin Conjugated Bilirubin Unconjugated Bilirubin AST ALT Alkaline Phosphatase POC Troponin I NT-Pro-B Natriuret Pep Total Protein Albumin Lipase Stool Occult Bld Scrn Patient ABO/Rh A POSITIVE Antibody Screen NEGATIVE Crossmatch IS Only See Detail Point of Care Test Results: Chemistry 10/01/18 11:34 POC Troponin I 0.03 ng/mL ng/mL (0.00-0.08) Departure - [facility] Clinical Impression: Gastrointestinal bleeding, lower Condition: Fair
--- NOTE | 2018-10-01 15:21 | CPEKG ---
Test Reason : OPEN Blood Pressure : / mmHG Vent. Rate : 060 BPM Atrial Rate : 062 BPM P-R Int : 138 ms QRS Dur : 083 ms QT Int : 441 ms P-R-T Axes : 078 051 063 degrees QTc Int : 441 ms Sinus rhythm Confirmed by Jose Salomon ([id number]) on 10/01/2018 3:20:13 PM Referred By: Jose Salomon Confirmed By:Jose Salomon
[2018-10-01] MEDS ORDERED: ONDANSETRON 4 MG/2 ML VIAL IVP PRN (15:37)
[2018-10-01] MEDS ORDERED: ONDANSETRON DISINTEGRATING 4 MG TAB PO PRN (15:37)
[2018-10-01] MEDS ORDERED: ACETAMINOPHEN 325 MG TAB PO PRN (15:37)
[2018-10-01] MEDS ORDERED: FUROSEMIDE 20 MG/2 ML VIAL IVP ONE (15:40)
[2018-10-01] MEDS ORDERED: hydrALAZINE 20 MG/ML VIAL IVP PRN (15:41)
--- NOTE | 2018-10-01 15:51 | PDGENHP ---
History and Physical - Chief Complaint anemia - History of Present Illness Patient is an 83-year-old female with multiple episodes of bloody stool this morning. She was scheduled for 2 units of blood today because of anemia. However when she was seen for her blood transfusion when told about the bloody stool she was sent to the emergency department. She almost fainted today. She had increased heart rate and palpitations with standing. Her symptoms are better with lying down. She really has no abdominal pain. No nausea vomiting. 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 She has been on prednisone until yesterday for gout. Her hemoglobin yesterday was 7.7. No chest pain or shortness of breath She was seen in the ER and 2 units of PRBC were ordered. First unit is being transfused now. VSS, BP is elevated. Past Medical/Surgical History: Pulmonary hypertension, dyslipidemia, chronic kidney disease, GI bleed, dementia , anemia, leaky heart valve, congestive heart failure Social History: Nonsmoker, no alcohol FmHx: non contributory History Information - Allergies/Home Medication List Allergies/Adverse Reactions: cyanocobalamin (vitamin B12) Allergy (Unknown, Verified 07/15/18 12:26) thiamine (vitamin B1) Allergy (Unknown, Verified 07/15/18 12:26) labetalol Allergy (Verified 07/15/18 12:26) Other-Enter Comments Home Medications: Multivitamins [Multivitamin (*)] 1 each PO DAILY 09/15/16 [Last Taken 10/01/18] Allopurinol [Allopurinol 300 MG (RX)] 150 mg PO DAILY 12/18/17 [Last Taken 10/01] Cholecalciferol Vit D3 [Vitamin D3 (*)] 1,000 units PO HS 07/15/18 [Last Taken 09/30/18] Furosemide [Lasix 20 MG (*)] 10 - 20 mg PO DAILY 07/15/18 [Last Taken 10/01/18 10mg] Hydralazine HCl 50 mg PO TID 07/15/18 [Last Taken 10/01/18 09:00] Metoprolol Succinate Xr [Toprol Xl 50 mg (*)] 50 mg PO DAILY@12 07/15/18 [Last Taken 09/30/18] Sodium Bicarbonate [Na Bicarb] 650 mg PO DAILY@07/15/18 [Last Taken 09/30/18] Tamsulosin HCl [Flomax 0.4 MG (*)] 0.4 mg PO DAILY 07/15/18 [Last Taken 10/01/18 ] amLODIPine BESYLATE [Norvasc 10 mg (*)] 10 mg PO DAILY 09/19/18 [Last Taken 04/11] Everolimus [Afinitor] 7.5 mg PO DAILY 09/20/18 [Last Taken 10/01/18] Potassium Cl [Klor-Con] 10 meq PO DAILY@12 10/01/18 [Last Taken 09/30/18] I have personally reviewed and updated: medical history, social history Past Medical History: See HPI list - Past Medical History hypertension (Challenging to control) Additional medical history: Carcinoid tumor. Esophageal ulcer. Acute blood loss anemia - s/p 2 units prbc's recently due to hgb 7.5 (Apr 2018, 06/2018). 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 HTN. gout. distolic dysfunction, LVH, mild MR. CKD 3. hx of UTI remotely. - Surgical History Reports: cholecystectomy Additional surgical history: Gastric bypass for tumor causing obstruction. Tumor surgery x3. appy - Family History Additional family history: No recent sick family contacts. neg for cancer. - Social History Smoking Status: Never smoked Additional social history: Lives with her son, normally independent in ADLs. uses walker Review of Systems Review of Systems: ROS: 10pt was reviewed & negative except for what was stated in HPI & below Physical Exam Physical Exam: Temp Pulse Resp BP Pulse Ox 36.4 C 64 13 160/94 H 100 10/01/18 15:29 10/01/18 15:29 10/01/18 15:29 10/01/18 15:29 10/01/18 15:29 Constitutional: chronically ill appearing Eyes: PERRL Ears, Nose, Mouth, Throat: moist mucous membranes, hearing normal Cardiovascular: regular rate and rhythym, No edema Respiratory: no respiratory distress, no rales or rhonchi, clear to auscultation Gastrointestinal: normoactive bowel sounds, soft, non-tender abdomen Skin: warm Musculoskeletal: generalized weakness Neurologic: No AAOx3 Psychiatric: interacting appropriately, not anxious, encephalopathic Lymph, Heme, Immunologic: No petechiae Lab Data & Imaging Review 10/01/18 11:12 10/01/18 11:12 WBC 4.95 10^3/uL (3.80-9.50) 10/01/18 11:12 RBC 1.98 10^6/uL (4.18-5.33) L 10/01/18 11:12 Hgb 5.9 g/dL (12.6-16.3) L* 10/01/18 11:12 Hct 18.3 % (38.0-47.0) L 10/01/18 11:12 MCV 92.4 fL (81.5-99.8) 10/01/18 11:12 MCH 29.8 pg (27.9-34.1) 10/01/18 11:12 MCHC 32.2 g/dL (32.4-36.7) L 10/01/18 11:12 RDW 17.2 % (11.5-15.2) H 10/01/18 11:12 Plt Count 195 10^3/uL (150-400) 10/01/18 11:12 MPV 9.3 fL (8.7-11.7) 10/01/18 11:12 Neut % (Auto) 78.6 % (39.3-74.2) H 10/01/18 11:12 Lymph % (Auto) 11.1 % (15.0-45.0) L 10/01/18 11:12 [place] % (Auto) 8.7 % (4.5-13.0) 10/01/18 11:12 Eos % (Auto) 0.2 % (0.6-7.6) L 10/01/18 11:12 Baso % (Auto) 0.0 % (0.3-1.7) L 10/01/18 11:12 Nucleat RBC Rel Count 0.0 % (0.0-0.2) 10/01/18 11:12 Absolute Neuts (auto) 3.89 10^3/uL (1.70-6.50) 10/01/18 11:12 Absolute Lymphs (auto) 0.55 10^3/uL (1.00-3.00) L 10/01/18 11:12 Absolute Monos (auto) 0.43 10^3/uL (0.30-0.80) 10/01/18 11:12 Absolute Eos (auto) 0.01 10^3/uL (0.03-0.40) L 10/01/18 11:12 Absolute Basos (auto) 0.00 10^3/uL (0.02-0.10) L 10/01/18 11:12 Absolute Nucleated RBC 0.00 10^3/uL (0-0.01) 10/01/18 11:12 Immature Gran % 1.4 % (0.0-1.1) H 10/01/18 11:12 Immature Gran # 0.07 10^3/uL (0.00-0.10) 10/01/18 11:12 RBC/WBC/PLT Morphology TNP 10/01/18 11:12 Platelet Estimate ADEQUATE (ADEQ) 10/01/18 11:12 Polychromasia 1+ H 10/01/18 11:12 Hypochromasia 1+ H 10/01/18 11:12 PT 13.3 SEC (12.0-15.0) 10/01/18 11:12 INR 1.05 (0.83-1.16) 10/01/18 11:12 APTT 21.6 SEC (23.0-38.0) L 10/01/18 11:12 Sodium 138 mEq/L (135-145) 10/01/18 11:12 Potassium 4.2 mEq/L (3.5-5.2) 10/01/18 11:12 Chloride 109 mEq/L (97-110) 10/01/18 11:12 Carbon Dioxide 20 mEq/l (22-31) L 10/01/18 11:12 Anion Gap 9 mEq/L (6-14) 10/01/18 11:12 BUN 49 mg/dL (7-23) H 10/01/18 11:12 Creatinine 1.8 mg/dL (0.6-1.0) H 10/01/18 11:12 Estimated GFR 27 10/01/18 11:12 Glucose 92 mg/dL (70-100) 10/01/18 11:12 Calcium 7.6 mg/dL (8.5-10.4) L 10/01/18 11:12 Total Bilirubin 0.3 mg/dL (0.1-1.4) 10/01/18 11:12 Conjugated Bilirubin 0.3 mg/dL (0.0-0.5) 10/01/18 11:12 Unconjugated Bilirubin 0.0 mg/dL (0.0-1.1) 10/01/18 11:12 AST 27 IU/L (14-46) 10/01/18 11:12 ALT 35 IU/L (9-52) 10/01/18 11:12 Alkaline Phosphatase 47 IU/L (38-126) 10/01/18 11:12 POC Troponin I 0.03 ng/mL (0.00-0.08) 10/01/18 11:34 NT-Pro-B Natriuret Pep 3880 pg/mL (0-450) H 10/01/18 11:12 Total Protein 5.1 g/dL (6.3-8.2) L 10/01/18 11:12 Albumin 3.1 g/dL (3.5-5.0) L 10/01/18 11:12 Lipase 103 IU/L (23-300) 10/01/18 11:12 Stool Occult Bld Scrn POSITIVE (NEGATIVE) H 10/01/18 11:40 Patient ABO/Rh A POSITIVE 09/30/18 16:30 Antibody Screen NEGATIVE 09/30/18 16:30 Crossmatch IS Only See Detail 09/30/18 16:30 Assessment & Plan Assessment: #GIB -Source unclear. She has a hx of AVM bleed. Has had extensive w/u previously with recent lower and upper GI -she was recently treated with steroids. Unclear if this has contributed. Will empirically start PPI BID until seen by GI, although, likely source is below the stomach -I discussed with GI who will consult. No procedures at [facility] are planned. She likely need Enteroscopy at the Center and GI will attempt to coordinate this -She is being transfused 2 units now -cont serial H/H -Overall she is hemodynamically stable #Acute on Chronic Anemia due to GI blood loss -Hgb is 5.9 on admission. She is weak, but vital signs are tolerating well. #HTN: -BP is elevated. She does not recall if she has taken her home meds -will provide PRN Hydralazine -restart home meds #Chronic Renal insufficiency, Stage III, baseline Cr is around 2. She is at baseline #Diastolic CHF: She does not have e/o of volume overload -She will get Lasix x 1 now given the transfusion. She may need more tomorrow #Carcinoid Tumor: Sees Dr. Barrett. They have not been formally consulted #Dementia: long standing, likely at baseline SCD's Inpatient Full Code
[2018-10-01] MEDS: CLOTRIMAZOLE 1% 15 GM CRTUBE TP SCH (20:45)
[2018-10-01] MEDS: PANTOPRAZOLE SODIUM 40 MG VIAL IVP SCH (20:46)
[2018-10-01] MEDS ORDERED: CHOLECALCIFEROL VIT D3 1,000 UNITS TAB PO SCH (21:00)
[2018-10-02 05:52] LABS: PLATELET COUNT 139 10^3/uL (150-400)
[2018-10-02] MEDS: PANTOPRAZOLE SODIUM 40 MG VIAL IVP SCH (08:07)
[2018-10-02] MEDS ORDERED: ALLOPURINOL 300 MG TAB PO SCH (09:00)
[2018-10-02] MEDS ORDERED: MULTIVITAMINS 1 EACH TAB PO SCH (09:00)
[2018-10-02] MEDS ORDERED: TAMSULOSIN HCL 0.4 MG CAP PO SCH (09:00)
[2018-10-02] MEDS ORDERED: Everolimus [Afinitor] 7.5 MG PO SCH (09:00)
[2018-10-02] MEDS: CLOTRIMAZOLE 1% 15 GM CRTUBE TP SCH (10:07)
[2018-10-02] MEDS ORDERED: SODIUM BICARBONATE 650 MG TAB PO SCH (12:00)
[2018-10-02] MEDS ORDERED: METOPROLOL SUCCINATE XR 50 MG TAB PO SCH (12:00)
--- NOTE | 2018-10-02 12:28 | HOSPPROG ---
Hospitalist Progress Note Assessment/Plan: 83 yo female admitted with GIB, likely AVM bleed given her history. She was transfused 2 units overnight. Hgb this morning is 9.2. GI consultation is pending. She likely needs an Enteroscopy at the [facility]. Diagnosis: #GIB -Source unclear. She has a hx of AVM bleed. Has had extensive w/u previously with recent lower and upper GI -she was recently treated with steroids. Unclear if this has contributed. Was empirically started on PPI BID until seen by GI, although, likely source is below the stomach -I discussed with GI who will consult. No procedures at [facility] are planned. She likely need Enteroscopy at the [facility] and GI will attempt to coordinate this -She was transfused 2 units -cont serial H/H -Overall she is hemodynamically stable #Acute on Chronic Anemia due to GI blood loss -Hgb is 5.9 on admission. She is weak, but vital signs are tolerating well. #HTN: -BP is elevated. She does not recall if she has taken her home meds -will provide PRN Hydralazine -restart home meds #Chronic Renal insufficiency, Stage III, baseline Cr is around 2. She is at baseline #Diastolic CHF: She does not have e/o of volume overload -Lasix as needed -will get Lasix 20mg PO x 1 now #Carcinoid Tumor: Sees Dr. Barrett. They have not been formally consulted #Dementia: long standing, likely at baseline SCD's Inpatient Full Code Dispo: possible d/c today pending GI reccs Subjective: no cp or sob. no n/v. Hgb is better Objective: Vital Signs Temp Pulse Resp BP Pulse Ox 36.5 C 92 18 122/56 H 99 10/02/18 07:32 10/02/18 11:56 10/02/18 11:56 10/02/18 11:56 10/02/18 11:56 Laboratory Results 10/02/18 10:55 10/02/18 05:27 10/01/18 10/02/18 10/03/18 05:59 05:59 05:59 Intake Total 1300 Output Total 1200 1 Balance 100 -1 PT 13.3 SEC (12.0-15.0) 10/01/18 11:12 INR 1.05 (0.83-1.16) 10/01/18 11:12 - Physical Exam Constitutional: no apparent distress, chronically ill appearing Eyes: PERRL, EOMI Ears, Nose, Mouth, Throat: moist mucous membranes Cardiovascular: regular rate and rhythym, No edema Respiratory: no respiratory distress, no rales or rhonchi Gastrointestinal: normoactive bowel sounds Skin: warm Neurologic: AAOx3 Psychiatric: interacting appropriately, not anxious Lymph, Heme, Immunologic: No petechiae ICD10 Worksheet Patient Problems: Problems Problem Status Onset Gastrointestinal bleeding, lower Acute Anemia Acute Carcinoid tumor Acute Choledocholithiasis Acute Gastric outlet obstruction Acute Hypotension Acute Ileus following gastrointestinal surgery Acute
--- NOTE | 2018-10-02 12:38 | PDMN ---
Medical Necessity Medical necessity: Pt meets IP criteria per MD & MCG [id number]; est los >2 mn for eval/tx of lower GI bleed w/acute on chronic anemia, presyncope, increased heart rate & palpitations w/standing; requiring close SDU monitoring, GI consult , PRBCs & follow-up labs; comorbid advanced age, dementia, carcinoid tumor, CHF w/recent hospitalization, CKD 3; per H&P & order 10/01/18
--- NOTE | 2018-10-02 14:13 | ASMTCASEMG ---
Living Arrangements What is your living Answers: With Child(ulises) arrangement? Who do you live with? Type Of Residence What kind of residence do Answers: House you live in? Discharge Plan Comments Coordination Status Comments Notes: Patient is an 83yo female who is being admitted for a GI bleed. Patient was transfused 2 units of blood overnight. Patient will likely need an enteroscopy at [facility] and may need transfer. GI will assess patient today. OT/PT have been ordered. CM will follow. Date Signed: 10/02/2018 02:12 PM Electronically Signed By:Roxy Celeste LCSW
--- NOTE | 2018-10-02 14:19 | ASMTCMCOM ---
CM Note CM Note Notes: Patient is going to be transferred to [facility]. The phone number for arrangements is [phone]. CM will follow. Date Signed: 10/02/2018 02:18 PM Electronically Signed By:Roxy Celeste LCSW
--- NOTE | 2018-10-02 14:29 | GCON ---
[f rep st] CONSULTATION DATE OF CONSULTATION: 10/02/2018 REFERRING PHYSICIAN: Jamal Santizo MD This consultation is for obscure gastrointestinal bleeding Dear Dr. Santizo: Thank you very kindly for asking me to evaluate the patient in consultation for hematochezia. She is a very pleasant 83-year-old female who has had recurrent gastrointestinal bleeding felt to be possib ly from arteriovenous malformations. Her most recent upper endoscopy and colonoscopy were at [facility] on August 10, 2018, revealing a duodenal AVM that was treated with argon plasma co agulation and multiple small distal ileal, terminal ileal, and right-sided colonic AVMs that were als o treated with APC. At that time, she presented with recurrent GI bleeding in early June. This s eemed to have benefitted her for maybe a couple of weeks, until once again, she has presented with la rger volume hematochezia resulting in symptoms of dizziness, near syncope, and a real drop in her hem atocrit requiring transfusion. She has had 2 more moderate to larger volume fresh, bright red blood bowel movements this morning without stool. Her hematocrit is 27 currently after transfusion. Her gastrointestinal history is complicated by multifocal metastatic carcinoid tumor that required re section of the distal jejunum. It sounds as though the carcinoid tumor might have been a primary sma ll bowel carcinoid. However, there was also involvement of the pancreas, maybe metastasis to the leticia er, and even some retroperitoneal involvement. Her recurrent GI bleeding really began in 2015 and batres s continued. She did have an EGD with upper push enteroscopy at that time when her bleeding began th at was unremarkable. She has had a small bowel follow-through that was normal. A capsule endoscopy in August of 2016 that showed blood in the distal ileum. A repeat capsule endoscopy was attempted aft er the upper and lower colons in July, but did not leave the stomach and was unhelpful. She has had a tagged cell study that thought there was bleeding in the distal transverse colon, but a colonos copy and even an urgent flexible sigmoidoscopy without prep at the time of recurrent bleeding did not find a cause. She is not on any anticoagulation or NSAIDs. I am asked to assist with further evalu ation and management. PAST MEDICAL HISTORY: Significant for: 1. Obscure GI bleeding thought to be related to possibly small bowel arteriovenous malformations. 2. 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 3. Hypertension. 4. Possibly some element of congestive heart failure related to valvular heart disease. 5. Pulmonary hypertension. 6. Dementia. 7. Chronic kidney disease. PAST SURGICAL HISTORY: Cholecystectomy, appendectomy. SOCIAL HISTORY: No tobacco. No alcohol. FAMILY HISTORY: Negative for anemia or history of bleeding. MEDICATIONS: On admission include multivitamin, allopurinol, vitamin D3, Lasix, hydralazine, metopro lol, sodium bicarbonate, Flomax, Norvasc, Afinitor, and potassium. REVIEW OF SYSTEMS: A 10-point review of systems is otherwise negative beyond the HPI. ALLERGIES: B12, B1, and labetalol. PHYSICAL EXAM: VITAL SIGNS: Blood pressure 111/60, heart rate is between 80 and 92, temperature 36. 5, oxygenation is 98% on room air. GENERAL: Elderly female, no acute distress. PULMONARY: Clear t o auscultation bilaterally. CARDIOVASCULAR: Regular rate and rhythm. Occasional ectopy. Systolic murmur at the left upper sternal border. ABDOMEN: Soft, nontender. No rebound. No guarding. No s ignificant distention. MUSCULOSKELETAL: No edema. Normal gait and station. DERMATOLOGIC: No josie dice or rash. NEURO: Alert to person, place, and time. Seems appropriate and oriented. [place] only. Nonfocal motor exam. LABORATORIES: At admission, hemoglobin was 5.9, with a hematocrit of 18.3, and MCV of 92.4, platelet s 195, white count 4.9. Post transfusion of 2 units of packed red cells, her hematocrit improved at 33.2. This morning, it was 25.7 and then 27.0. BUN is elevated at 51, with a creatinine of 1.9, sod ium 136, potassium 4.3. LFTs are normal. BNP is 3880. Lipase is 103. Most recent procedure reports include an upper endoscopy/colonoscopy, August 10, 2018. The upper e ndoscopy reached what was described as a proximal jejunum and a duodenal angioectasia was argon plasm a coagulated. The rest of the exam was unremarkable. The colonoscopy revealed terminal ileal angioe ctasias and some transverse colon angioectasias that were treated with argon plasma coagulation. Capsule endoscopy attempted on August 13, 2018, which was nondiagnostic, as it did not leave the st omach. Colonoscopy, July 28, 2018: The ileum was at that time described as normal. There was, however, blood within predominantly the left colon with normal [id number] stool in the right colon. She had a tagged red blood cell scan that showed a possible transverse colonic bleed which preceded t he colonoscopy on July 28. Flexible sigmoidoscopy complete to the proximal or possibly mid transverse colon on August 04, 2018 , was normal without blood. Yellow colonic stool and liquid were seen, again without bleeding. IMPRESSION: 1. Anemia, multifactorial, likely an element of chronic kidney disease and maybe some malnutrition, but certainly a component of recurrent and obscure gastrointestinal bleeding. 2. Recurrent obscure gastrointestinal bleeding likely related to small intestinal arteriovenous malf ormations. 3. Small intestinal metastatic carcinoid disease. 4. Pulmonary hypertension. 5. Congestive heart failure. 6. Chronic kidney disease. RECOMMENDATIONS: 1. The cause of her bleeding is not really known. She has had small intestinal AVMs, as well as col onic AVMs treated without real clinical change in her bleeding. She has had small bowel follow-throu gh and even CT imaging, which does not show any focal or acute problems such as vascular disease on [facility] CT angio, specifically, and no evidence of active small intestinal carcinoid tumors which could be bleeding, at least on the small bowel follow-through. She has had a failed capsule endoscopy, as it did not leave the stomach. I believe that the best approach would be an upper enteroscopy and possi ana cristina lower enteroscopy together to try to cover as much geography of the small intestine as can be fou nd to treat or at least diagnose causes of bleeding. 2. It is possible that small bowel carcinoid involvement in bleeding is there or even anastomotic stauffer rgical bleeding, but I have not been able to really diagnose this either. 3. She is not a good candidate for provocative angiography due to her chronic kidney disease. 4. I do not believe a tagged cell study would be of use. 5. A capsule endoscopy is going to be less helpful, as the initial one did not leave the stomach, an d it is not therapeutic. 6. I have spoken with Dr. Lauri Javier at the [facility] who has agreed to accept the patie nt in transfer to help us with these enteroscopy procedures to diagnose and treat her bleeding. 7. I have spoken with Alex, the patient's power of patent prosecution attorney, who would even prefer her to be transf erred for these procedures. We will work on those arrangements. 8. In the meantime, type and hold 2 units of blood, continue to monitor her hematocrit q.4 while she is here, and transfuse as needed. 9. I believe she is medically stable for transfer and would benefit from the expertise of the [facility] to perform enteroscopy which cannot be performed here. /[id number]/MODL
--- NOTE | 2018-10-02 16:20 | PDDCSUM ---
Discharge Summary Discharge Summary: 83 yo female admitted with GIB, likely AVM bleed given her history. She was transfused 2 units overnight. Hgb this morning is 9.2. Dr Mejia Cazares provided GI consultation. He discussed the case with Dr. Lauri Javier at the [facility] and they recommend upper and lower Enteroscopy at the [place]. The patient will be transferred to their hospitalist service. I called and provided report to Dr. Quincy Vaca who has accepted the patient. At the time of discharge the pts vital signs are stable. DDX: #GIB -Source unclear but likely AVM bleed. Has had extensive w/u previously with recent lower and upper GI -she was recently treated with steroids. Unclear if this has contributed. Was empirically started on PPI BID -Our GI team performed No procedures at [facility] during this admission. Enteroscopy per above is planned -She was transfused 2 units -Overall she is hemodynamically stable #Acute on Chronic Anemia due to GI blood loss -Hgb is 5.9 on admission. #HTN: #Chronic Renal insufficiency, Stage III, baseline Cr is around 2. She is at baseline. She does not require Dialysis #Diastolic CHF: She does not have e/o of volume overload -Lasix as needed. Did get Lasix this morning. #Carcinoid Tumor: Sees Dr. Barrett with Oncology here in [place]. #Dementia: long standing, likely at baseline Exam: SEE TODAYS PROGRESS NOTE MEDS: SEE MED REC TOTAL TIME SPENT ON D/C IS 35 MINS
--- NOTE | 2018-10-02 16:44 | GCON ---
[f rep st] CONSULTATION CRITICAL CARE CONSULT DATE OF CONSULTATION: 10/02/2018 HISTORY OF PRESENT ILLNESS: This patient is an 83-year-old female who has known abdominal carcinoid tumor that has been partially resected in the past but has been complicated by recurrent GI bleeding. She has required multiple transfusions for this and has had multiple GI procedures, both at [facility] as well as at [facility], including upper and lower end oscopy as well as push enteroscopy and capsule procedures. She has had some cautery after a source o f bleeding was thought to be in the transverse colon after a tagged red cell study in June of 2018 . However, she continues to have either syncope or near syncopal episodes and significant anemia. T his was the case on this admission. She was admitted yesterday. Her blood pressure was reasonably o alphonso. She was severely anemic and received 2 units of blood and she feels a little bit better today. She has been evaluated by GI quite extensively and their note is accompanying her in the chart, roberto horowitz, resulting in a transfer to [facility] for further evaluation after careful delibera tion, which I am in favor of. I spoke with the son in some detail about this today. REVIEW OF SYSTEMS: Otherwise negative. PAST MEDICAL HISTORY: 1. Includes the GI bleeding as described above, as well as the carcinoid. She has been on steroids. There was suggested a pulmonary hypertension but an echo done on 09/23/[address] [facility] er said the PA pressure was normal as was the RV function and RV chambers, but an absolute pressure w as not reported. 2. Hyperlipidemia. 3. Chronic kidney disease with a creatinine 2.0. 4. Dementia. 5. Anemia. 6. Hypertension. 7. Gout. 8. Mild mitral regurgitation. 9. Diastolic dysfunction. PAST SURGICAL HISTORY: Includes partial gastrectomy and multiple other abdominal surgeries well as a ppendectomy. SOCIAL HISTORY: She is a nonsmoker. FAMILY HISTORY: Noncontributory at this time. MEDICATIONS: Include Tylenol, allopurinol, Norvasc, vitamin D, hydralazine p.r.n., metoprolol, multi vitamin, Zofran, Protonix, and Flomax. PHYSICAL EXAM: VITAL SIGNS: She was afebrile. Her blood pressure for wi was 152/72, heart rate 92, respirations 18, oxygen saturation 99% on room air. She is Indonesian-speaking only, but her son was a t the bedside and translated. She seemed to be doing well. She was able to speak in full sentences without using accessory muscles for breathing. HEENT: Pupils equally round and reactive to light, n onicteric and noninjected. Mucous membranes moist without erythema or exudate. NECK: Supple withou t adenopathy or jugular vein distention. RESPIRATORY: Breath sounds clear to auscultation bilateral ly without wheezes, rubs, rales. HEART: Regular rate and rhythm without obvious murmur. ABDOMEN: Soft, nontender, nondistended without hepatosplenomegaly. Her bowel tones were hyperactive. EXTREMI TIES: Show no clubbing, cyanosis, or edema. NEUROLOGIC: Nonfocal, including cranial nerves, deep t endon reflexes. SKIN: Warm, dry, without evidence of rash. LABORATORY DATA: Objective data includes her initial hemoglobin was 5.9, which was 7.7 on 09/30 and 8.6 on 09/22/2018, currently is 8.9 and 26, platelets of 139. Basic metabolic panel showed a BUN of 49 with a creatinine 1.8. BNP was 3880. Albumin 3.1. Lipase was normal. LFTs were normal. ASSESSMENT AND PLAN: Recurrent gastrointestinal bleeding in a patient with known arteriovenous malfo rmations, so far has failed aggressive therapy. She is going to be transferred today so no further r ecommendations are necessary at this time. It is hard to know whether she is actually having ongoing bleeding. I agree that a tagged red cell scan is not likely to be useful, particularly given the sl ow nature of her bleeding. /[id number]/MODL
[2018-10-02] MEDS ORDERED: EPINEPHrine 1 MG/10 ML SYR IVP ONE ×2 (17:00→17:08)
--- NOTE | 2018-10-02 17:14 | HOSPPROG ---
Hospitalist Progress Note Assessment/Plan: CODE BLUE NOTE Code Ajith announced overhead. Pt on sofa, appears to have had an episode of melena. Full code confirmed. Family and POA (SON) at bedside. No pulse identified. CPR with chest compressions started. Epi x1 given, CPR resumed. Pulses, sinus tach obtained. On examination patient appears to be protecting airway, examined by Dr. Sánchez, no intubation is needed pt will have serial labs obtained, needs transfusion. GI to be called. Please reference Code Blue room notes for details regarding time. Post Cardiopulmonary resuscitation exam BP: 160's/70's, HR 120, RR: 16 Pt is conversive awake PEERL, EOMI RRR CTA B s/nt/n, visible melena noted on floor, clothes trace le edema Plan: see clinical note obtain cxr Liter of fluid while awaiting labs Likely PRBC transfusion communication/coordination with GI If transfers, will need ICU bed Objective: Vital Signs Temp Pulse Resp BP Pulse Ox 36.5 C 80 18 111/60 99 10/02/18 07:32 10/02/18 12:34 10/02/18 11:56 10/02/18 12:34 10/02/18 11:56 Laboratory Results 10/02/18 16:25 10/02/18 05:27 10/01/18 10/02/18 10/03/18 05:59 05:59 05:59 Intake Total 1300 Output Total 1200 1 Balance 100 -1 PT 13.3 SEC (12.0-15.0) 10/01/18 11:12 INR 1.05 (0.83-1.16) 10/01/18 11:12 ICD10 Worksheet Patient Problems: Problems Problem Status Onset Gastrointestinal bleeding, lower Acute Anemia Acute Carcinoid tumor Acute Choledocholithiasis Acute Gastric outlet obstruction Acute Hypotension Acute Ileus following gastrointestinal surgery Acute
[2018-10-02] MEDS ORDERED: KETAMINE 200 MG/20 ML VIAL ONE (17:25)
[2018-10-02] MEDS ORDERED: PROPOFOL/EMULSION 500 MG/50 ML BOTTLE IV ONE (17:25)
--- NOTE | 2018-10-02 17:32 | PDINTPN ---
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 She has had an extensive GI workup and was planning to transfer to thid afternoon when she had a syncopal event after going to the bathroom. Initial responders found her unresponsive on the couch and were unable to definitively find a pulse so placed her supine and called mamadou leonard while initiating CPR. I was on scene within 60 seconds and she had already been given a single dose of epi, but she had a pulse so CPR was stopped. Total time of CPR<2 minutes. She was then transferred to her bed where she was awake and conversant with her son ( translating in arabic) and said she recognized me from earlier this morning. She was clearly protecting her airway so no intubation was required. Her BP was 160/x with a normal O2 sat. She had significant amounts melena in her bed. Her H /H was 8.9/25.7 at 0530, 9.2/27 at 1055 (without transfusion), and 8.8/26.6 at the time of the code. The only transfusion since admission was 2 units RBC at 1500 on 10/01/18. We elected to change her status to ICU prior to transfer. * GIB presumably related to small bowel AVMs which have been difficult to identify. Planning transfer to for further evaluation and treatment. Given the preservation of BP and lack of significant change in H/H, I dont feel she is having a brisk bleed to warrant a repeat tagged RBC scan. * Cardiac arrest- not clearly loss of pulse given such a rapid response. Agree with ICU level for now and i dont expect mcc sequelae. * * critical care time 35 minutes separate from dictation from earlier today Subjective: CTSP urgently due to mamadou valle Objective: Vital Signs Temp Pulse Resp BP Pulse Ox 36.5 C 80 18 111/60 99 10/02/18 07:32 10/02/18 12:34 10/02/18 11:56 10/02/18 12:34 10/02/18 11:56 Laboratory Results 10/02/18 16:25 10/02/18 05:27 10/01/18 10/02/18 10/03/18 05:59 05:59 05:59 Intake Total 1300 Output Total 1200 1 Balance 100 -1 PT 13.3 SEC (12.0-15.0) 10/01/18 11:12 INR 1.05 (0.83-1.16) 10/01/18 11:12 Physical Exam - Physical Exam General Appearance: alert, cachetic EENT: PERRL/EOMI Neck: supple Respiratory: lungs clear, normal breath sounds, No respiratory distress, No accessory muscle use Cardiac/Chest: regular rate, rhythm, No edema Abdomen: soft, No distended Skin: normal color, warm/dry, No cyanosis Lymphatic: no adenopathy Extremities: No pedal edema Neuro/Psych: alert, normal mood/affect, oriented x 3 ICD10 Worksheet Patient Problems: Problems Problem Status Onset Gastrointestinal bleeding, lower Acute Anemia Acute Carcinoid tumor Acute Choledocholithiasis Acute Gastric outlet obstruction Acute Hypotension Acute Ileus following gastrointestinal surgery Acute
--- NOTE | 2018-10-02 17:43 | PDANEPAE ---
ANE History of Present Illness Emergent GI bleed of unknown source here for upper endoscopy ANE Past Medical History - Pulmonary History Hx Oxygen in Use at Home: No Hx Sleep Apnea: No - Endocrine History Hx Diabetes: No - Chronic Pain History Chronic Pain: No ANE Review of Systems Review of Systems: ANE Patient History - Allergies Allergies/Adverse Reactions: cyanocobalamin (vitamin B12) Allergy (Unknown, Verified 07/15/18 12:26) thiamine (vitamin B1) Allergy (Unknown, Verified 07/15/18 12:26) labetalol Allergy (Verified 07/15/18 12:26) Other-Enter Comments - Home Medications Home Medications: Multivitamins [Multivitamin (*)] 1 each PO DAILY 09/15/16 [Last Taken 10/01/18] Allopurinol [Allopurinol 300 MG (RX)] 150 mg PO DAILY 12/18/17 [Last Taken 10/01] Cholecalciferol Vit D3 [Vitamin D3 (*)] 1,000 units PO HS 07/15/18 [Last Taken 09/30/18] Furosemide [Lasix 20 MG (*)] 10 - 20 mg PO DAILY 07/15/18 [Last Taken 10/01/18 10mg] Hydralazine HCl 50 mg PO TID 07/15/18 [Last Taken 10/01/18 09:00] Metoprolol Succinate Xr [Toprol Xl 50 mg (*)] 50 mg PO DAILY@12 07/15/18 [Last Taken 09/30/18] Sodium Bicarbonate [Na Bicarb] 650 mg PO DAILY@12 07/15/18 [Last Taken 09/30/18] Tamsulosin HCl [Flomax 0.4 MG (*)] 0.4 mg PO DAILY 07/15/18 [Last Taken 10/01/18 ] amLODIPine BESYLATE [Norvasc 10 mg (*)] 10 mg PO DAILY 09/19/18 [Last Taken 04/11] Everolimus [Afinitor] 7.5 mg PO DAILY 09/20/18 [Last Taken 10/01/18] - Smoking Hx Smoking Status: Never smoked ANE Labs/Vital Signs - Labs Result Diagrams: 10/02/18 16:25 10/02/18 05:27 - Vital Signs Blood Pressure: 111/60 Heart Rate: 80 Respiratory Rate: 18 O2 Sat (%): 99 Height: 157.48 cm Weight: 48.988 kg ANE Physical Exam - ASA Status ASA Status: IV, E ANE Anesthesia Plan Anesthesia Plan: general endotracheal anesthesia, GA with mask Urgent/Emergent Case: Puneet oseguera completed preop but documented later for safe timely pt care
--- NOTE | 2018-10-02 18:06 | POSTANESTH ---
Post Anesthetic Evaluation Cardiovascular Status: Normal, Stable, Similar to Pre-Op Cond Respiratory Status: Normal, Stable, Similar to Pre-op Cond. Level of Consciousness/Mental Status: Alert and Oriented Pain Control: Adequate, Prn Tx Ordered Nausea/Vomiting Control: Adequate, Prn Tx Ordered Complications Possibly Related to Anesthesia: None Noted
--- NOTE | 2018-10-02 18:10 | GIREPORT ---
[facility] - Endoscopy Department Patient Name: Cris Altman Procedure Date: 10/02/2018 5:25 PM Patient Type: Inpatient Attending MD/ ER Physician: Mejia Ybarra MD Procedure: Upper GI endoscopy Indications: Acute post hemorrhagic anemia, Hematochezia Providers: Mejia Ybarra MD Medicines: Propofol per Anesthesia Complications: No immediate complications. Description of Procedure: After obtaining informed consent, the endoscope was passed under direct vision. Throughout the procedure, the patient's blood pressure, pulse, and oxygen saturations were monitored continuously. The Endoscope was intro duced through the mouth, and advanced to the second part of duodenum. The [facility] er GI endoscopy was accomplished without difficulty. The patient tolerated th e procedure well. Findings: The esophagus was normal. A medium amount of food (residue) was found in the gastric fundus and i n the gastric body. A tattoo was seen in the first portion of the duodenum. The tattoo site appeared normal. The duodenal bulb, second portion of the duodenum and area of the papil la were normal. Estimated Blood Loss: Estimated blood loss: none. Post Op Diagnosis: - Normal esophagus. - A medium amount of food (residue) in the stomach. - A tattoo was seen in the duodenum. The tattoo site appeared normal. - Normal duodenal bulb, second portion of the duodenum and area of the papilla. - No specimens collected. - No evidence of active GI bleeding on the upper endoscopy. - I suspect a small intestinal source of hemorrhage. The absence of blo od in the stomach or early duodenum in the setting of such immediate hemorrha ge argues against a proximal bleeding source. Recommendation: - Will initiate the earlier plan [facility] for probable enteroscopy to further evaluate her GI bleeding. - Transfuse 2 units PRBCs now - NPO - Family aware and agree with plan. - Thank you for allowing me to be involved in the care of your patient. Attending Participation: I personally performed the entire procedure without the assistance of a fellow, resident or surg ical dairy and food laboratory assistant. Mejia Ybarra MD Mejia Ybarra MD 10/02/2018 6:09:53 PM This report has been signed electronicallyDavid MD Tate Number of Addenda: 0 Note Initiated On: 10/02/2018 5:25 PM [email or web address]
[2018-10-02 18:16] VITALS: BP 143/61
[2018-10-02 19:01] LABS: PLATELET COUNT 102 10^3/uL (150-400)
[2018-10-02 19:16] LABS: INR 1.15 (0.83-1.16); PROTIME(PATIENT) 14.2 SEC (12.0-15.0)
--- NOTE | 2018-10-02 20:17 | CPEKG ---
Test Reason : OPEN Blood Pressure : / mmHG Vent. Rate : 074 BPM Atrial Rate : 074 BPM P-R Int : 136 ms QRS Dur : 083 ms QT Int : 418 ms P-R-T Axes : 065 032 053 degrees QTc Int : 464 ms Sinus rhythm Confirmed by Damian Gasca ([id number]) on 10/02/2018 8:17:02 PM Referred By: Jamal Santizo Confirmed By:Damian Gasca
--- NOTE | 2018-10-06 15:30 | ASDISCHSUM ---
Discharge Information Plan Status: Medically Cleared to Leave: Discharge Date:10/02/2018 08:50 PM CM D/C Disposition: ADT D/C Disposition:[facility] Projected Discharge Date:10/02/2018 11:00 AM Transportation at D/C: Discharge Delay Reason: Follow-Up Date:10/02/2018 11:00 AM Discharge Slot: Final Diagnosis: Placement Information Referral Type:*Hospice Referral ID:[id number] Provider Name: Address 1: Phone Number: Address 2: Fax Number: City: Selection Factors: State: Patient Contact Information Contact Name:MALDONADOHENRRY Relationship:Son Address:[address] Work Phone: Sherrell:[place] Phone: [facility] Code:[place] [address] Email: Financial Information Financial Class:Medicare Primary Plan Desc:MEDICARE IP PART B ONLY Primary Plan Number:[id number] Secondary Plan Desc:[place] Secondary Plan Number:[id number] Assessment Information [facility] Initial CM Assessment Living Arrangements What is your living Answers: With Child(ulises) arrangement? Who do you live with? Type Of Residence What kind of residence do Answers: House you live in? Discharge Plan Comments Coordination Status Comments Notes: Patient is an 83yo female who is being admitted for a GI bleed. Patient was transfused 2 units of blood overnight. Patient will likely need an enteroscopy at [facility] and may need transfer. GI will assess patient today. OT/PT have been ordered. CM will follow. Date Signed: 10/02/2018 02:12 PM Electronically Signed By:Roxy Celeste LCSW [facility] CM Progress Note CM Note CM Note Notes: Patient is going to be transferred to [facility]. The phone number for arrangements is [phone]. CM will follow. Date Signed: 10/02/2018 02:18 PM Electronically Signed By:Roxy Celeste LCSW Intervention Information
== END 2018-10-02 20:50 | disposition short-term general hospital (02) | DRG 377 ==
LOC: F2N 13:34
PROVIDERS: ADMIT Family Medicine; ATTEND Family Medicine
PROC: 30233N1 Transfusion of Nonautologous Red Blood Cells into Peripheral Vein, Percutaneous Approach (ICD-10-PCS; 2018-10-01)
PROC: 0DJ08ZZ Inspection of Upper Intestinal Tract, Via Natural or Artificial Opening Endoscopic (ICD-10-PCS; principal; 2018-10-02 16:15)
DX: K55.21 Angiodysplasia of colon with hemorrhage (principal); I46.8 Cardiac arrest due to other underlying condition; D62 Acute posthemorrhagic anemia; I13.0 Hypertensive heart and chronic kidney disease with heart failure and stage 1 through stage 4 chronic kidney disease, or unspecified chronic kidney disease; I50.32 Chronic diastolic (congestive) heart failure; N18.3 Chronic kidney disease, stage 3 (moderate); E86.1 Hypovolemia; F03.90 Unspecified dementia, unspecified severity, without behavioral disturbance, psychotic disturbance, mood disturbance, and anxiety; I27.20 Pulmonary hypertension, unspecified; E78.5 Hyperlipidemia, unspecified
CPT/HCPCS: 84484-ER; 97161-GP; 97165-GO; J0360; J1940; J2270; J2704; P9016

== ENCOUNTER 2018-11-19 09:20 | Inpatient (IN) | payer OTHER, MEDICAID | END 2018-11-26 15:57 | disposition home or self-care (01) | LOC: F1N 11:56 ==